=== PATIENT | female | born 1965 | race American Indian/Alaskan Native ===

== ENCOUNTER 2017-11-17 00:45 | Inpatient (IN) | payer OTHER ==
[2017-11-17] MEDS ORDERED: ASPIRIN PO ONE (00:55)
[2017-11-17] MEDS ORDERED: PROVENTIL IH ONE (00:59)
[2017-11-17] MEDS ORDERED: GEODON IM ONE (01:08)
--- NOTE | 2017-11-17 01:10 | Emergency Department Report ---
ED Shortness of Breath HPI - General Chief Complaint: Dyspnea/Respdistress Stated Complaint: SOB/CHEST PAIN Time Seen by Provider: 11/17/17 01:06 Source: patient Mode of arrival: Ambulatory Limitations: No Limitations - History of Present Illness Initial Comments: Patient is a 52-year-old female who presents to emergency room with complaints of chest pain and shortness of breath 1 week patient states that the chest pain and shortness of breath or worsening. He states that she is unable to walk up a flight of steps due to her shortness of breath and JOSÉ. Patient states she's had a nonproductive dry cough. Patient denies fever or chills at this time. MD Complaint: shortness of breath, cough, chest pain, pain with inspiration -: Gradual, week(s) (1 week) Severity: severe Pain Scale: 6 Quality: aching Consistency: constant Improves With: oxygen, rest, bronchodilators, upright position Worsens With: lying flat, exertion Known History Of: COPD Context: recent URI, recent illness Associated Symptoms: chest pain, pain with inspiration, cough Treatments Prior to Arrival: bronchodilator - Related Data Home Oxygen Therapy: No Home Medications Medication Instructions Recorded Confirmed Last Taken ALBUTEROL Inhaler [ProAir HFA 8.5 gm IH BID 11/17/17 11/17/17 Unknown Inhaler] Mometasone/Formoterol [Dulera 100 2 puff IH BID 11/17/17 11/17/17 Unknown Mcg/5 Mcg Inhaler] Tiotropium [place] [Spiriva 4 gm IH BID 11/17/17 11/17/17 Unknown Respimat] Allergies Allergy/AdvReac Type Severity Reaction Status Date / Time Penicillins Allergy Hives Verified 05/01/16 23:11 peanuts Allergy Anaphylaxis Uncoded 05/01/16 23:11 ED Review of Systems ROS: Stated complaint: SOB/CHEST PAIN Other details as noted in HPI Comment: All other systems reviewed and negative Constitutional: denies: chills, fever Eyes: denies: eye pain, eye discharge, vision change ENT: denies: ear pain, throat pain Respiratory: cough, orthopnea, shortness of breath, SOB with exertion, SOB at rest, wheezing Cardiovascular: chest pain. denies: palpitations Endocrine: no symptoms reported Gastrointestinal: denies: abdominal pain, nausea, diarrhea Genitourinary: denies: urgency, dysuria, discharge Musculoskeletal: denies: back pain, joint swelling, arthralgia Skin: denies: rash, lesions Neurological: denies: headache, weakness, paresthesias Psychiatric: denies: anxiety, depression Hematological/Lymphatic: denies: easy bleeding, easy bruising ED Past Medical Hx - Past Medical History Previous Medical History?: Yes Hx COPD: Yes - Surgical History Past Surgical History?: Yes Additional Surgical History: tubal ligation - Family History Family history: hypertension - Social History Smoking Status: Former Smoker Substance Use Type: None - Medications Home Medications: Home Medications Medication Instructions Recorded Confirmed Last Taken Type ALBUTEROL Inhaler [ProAir HFA 8.5 gm IH BID 11/17/17 11/17/17 Unknown History Inhaler] Mometasone/Formoterol [Dulera 100 2 puff IH BID 11/17/17 11/17/17 Unknown History Mcg/5 Mcg Inhaler] Tiotropium [place] [Spiriva 4 gm IH BID 11/17/17 11/17/17 Unknown History Respimat] ED Physical Exam - General Limitations: No Limitations General appearance: alert, in distress - Head Head exam: Present: atraumatic, normocephalic - Eye Eye exam: Present: normal appearance - ENT ENT exam: Present: mucous membranes dry - Neck Neck exam: Present: normal inspection - Respiratory Respiratory exam: Present: respiratory distress, wheezes, accessory muscle use, decreased breath sounds - Cardiovascular Cardiovascular Exam: Present: regular rate, normal rhythm. Absent: systolic murmur, diastolic murmur, rubs, gallop - GI/Abdominal GI/Abdominal exam: Present: soft, normal bowel sounds - Extremities Exam Extremities exam: Present: normal inspection - Back Exam Back exam: Present: normal inspection - Neurological Exam Neurological exam: Present: alert, oriented X3 - Psychiatric Psychiatric exam: Present: normal affect, normal mood - Skin Skin exam: Present: warm, dry, intact, normal color. Absent: rash ED Course Vital Signs 11/17/17 11/17/17 11/17/17 00:48 01:00 01:54 Temperature 97.5 F L 98.2 F Pulse Rate 110 H 103 H 107 H Respiratory 22 15 28 H Rate Blood Pressure 112/77 Blood Pressure 118/81 [Left] O2 Sat by Pulse 78 L 94 100 Oximetry 11/17/17 11/17/17 11/17/17 02:00 02:12 03:00 Temperature Pulse Rate 105 H 98 H Respiratory 28 H 18 Rate Blood Pressure 141/93 122/84 Blood Pressure [Left] O2 Sat by Pulse 93 98 99 Oximetry 11/17/17 04:00 Temperature Pulse Rate Respiratory 21 Rate Blood Pressure 139/86 Blood Pressure [Left] O2 Sat by Pulse 97 Oximetry - Reevaluation(s) Reevaluation #1: 11/17/17 01:42.. Patient's oxygen saturation improving. Patient's retractions have resolved. Patient improving. Lung sounds improving ED Medical Decision Making - Lab Data Result diagrams: 11/17/17 01:37 11/17/17 01:37 - EKG Data -: EKG Interpreted by Me EKG shows normal: sinus rhythm Rate: tachycardia - EKG Data Interpretation: no acute changes - Radiology Data Radiology results: report reviewed - Medical Decision Making Labs reviewed with patient. Will consult hospitalist for admission. - Differential Diagnosis copd. copd exac. cp, sob Critical Care Time: Yes Critical care attestation.: If time is entered above; I have spent that time in minutes in the direct care of this critically ill patient, excluding procedure time. Critical Care Time: 35 minutes spent with patient ED Disposition Clinical Impression: Hypoxia, Chest pain, Shortness of breath, COPD exacerbation, Congestive heart failure Disposition: OP ADMIT IP TO THIS HOSP Is pt being admited?: Yes Does the pt Need Aspirin: No Condition: Critical Time of Disposition: 05:21
[2017-11-17 01:49] LABS: Basophils % (Auto) 0.5 % (0.0-1.8); Eosinophils # (Auto) 0.1 K/mm3 (0.0-0.4); Eosinophils % (Auto) 1.3 % (0.0-4.3); Hematocrit 43.7 % (30.3-42.9); Hemoglobin 14.1 gm/dl (10.1-14.3); Lymphocytes # (Auto) 1.6 K/mm3 (1.2-5.4); Lymphocytes % (Auto) 21.1 % (13.4-35.0); Mean Corpuscular HGB Conc 32 % (30-34); Mean Corpuscular Hemoglobin 31 pg (28-32); Mean Corpuscular Volume 97 fl (79-97); Monocytes # (Auto) 0.9 K/mm3 (0.0-0.8); Monocytes % (Auto) 12.5 % (0.0-7.3); Platelet Count 290 K/mm3 (140-440); Red Blood Count 4.51 M/mm3 (3.65-5.03); Red Cell Distribution Width 15.3 % (13.2-15.2)
[2017-11-17 02:12] LABS: BUN/Creatinine Ratio 26; Blood Urea Nitrogen 18 mg/dL (7-17); Calcium 8.6 mg/dL (8.4-10.2); Hemolysis Index 3
--- NOTE | 2017-11-17 02:53 | XRay Report ---
FINAL REPORT PROCEDURE: XR CHEST ROUTINE 2V TECHNIQUE: PA and lateral chest radiographs were obtained. CPT 11032 HISTORY: sob COMPARISON: No prior studies are available for comparison. FINDINGS: Heart: Normal. Mediastinum/Vessels: Normal. Lungs/Pleural space: There is moderate COPD. There are mild fibrotic changes the lung bases. There are no active infiltrates, effusions or pneumothoraces.. Bony thorax: No acute osseous abnormality. Other: IMPRESSION: The heart size is normal. There is moderate COPD. There are mild fibrotic changes the lung bases. There are no active infiltrates, effusions or pneumothoraces..
[2017-11-17] MEDS ORDERED: MORPHINE IM ONE (03:13)
[2017-11-17] MEDS ORDERED: MORPHINE IV ONE (03:15)
[2017-11-17] MEDS ORDERED: MORPHINE ONE (03:19)
[2017-11-17 03:51] LABS: Bilirubin,Urine NEG (Negative); Blood,Urine NEG (Negative); Color,Urine Yellow (Yellow); Mucus,Urine FEW /HPF; Nitrite,Urine NEG (Negative)
--- NOTE | 2017-11-17 04:52 | Cat Scan Report ---
FINAL REPORT PROCEDURE: CT ANGIO CHEST TECHNIQUE: Computerized tomographic angiography of the chest was performed after the IV injection of iodinated nonionic contrast including image processing. The image data was postprocessed using 2-dimensional multiplanar reformatted (MPR) and 3-dimensional (MIP and/or volume rendered) techniques. HISTORY: cp/sob COMPARISON: No prior studies are available for comparison. FINDINGS: Heart and pericardium: Heart size is borderline enlarged. There is a small pericardial effusion.. Thoracic aorta: There is no thoracic aortic aneurysm or dissection.. Pulmonary vasculature: There is no pulmonary embolism.. Lymph nodes: No enlarged thoracic lymph nodes. Lungs: There is moderate COPD. There are mild fibrotic changes. There are no active infiltrates. Pleural space: No effusion, thickening, or pneumothorax. Musculoskeletal structures: No significant abnormality. Upper abdominal structures: No significant abnormality. IMPRESSION: Heart size is borderline enlarged. There is a small pericardial effusion.. There is no thoracic aortic aneurysm or dissection.. There is no pulmonary embolism.. There is moderate COPD. There are mild fibrotic changes. There are no active infiltrates.
--- NOTE | 2017-11-17 07:32 | Emergency Department Report ---
Blank Doc - Documentation Documentation: I was asked to assess patient at the bedside by RN taking care of the patient during the day shift. Patient apparently is lethargic. Received a total 4 mg of morphine. Patient is on 2 L of oxygen. Patient is drowsy but arousable to tactile stimulation. She states she is feeling better but then falls right back to sleep. Patient denies home oxygen use. Oxygen discontinued to determine baseline. Respiratory therapist contacted to obtain ABG on room air to rule out acute respiratory acidosis/CO2 retention. Patient's ABG on room air show significant hypoxia and a respiratory acidosis. BiPAP was initiated with O2 supplementation. Pt still awaiting admission orders. Hospitalist reinformed and informed of acute changes requiring bipap. Case d/w DR Del Cid
[2017-11-17] MEDS ORDERED: SODIUM CHLORIDE FLUSH SYRINGE 10 ML IV PRN (09:34)
[2017-11-17] MEDS ORDERED: DULCOLAX PR PRN (09:34)
[2017-11-17] MEDS ORDERED: NITROSTAT SL PRN (09:34)
[2017-11-17] MEDS ORDERED: ZOFRAN IV PRN (09:34)
[2017-11-17] MEDS ORDERED: MILK OF MAGNESIA PO PRN (09:34)
[2017-11-17] MEDS ORDERED: NON-FORMULARY (Mometasone/Formoterol [Dulera 100 Mcg/5 Mcg Inhaler] 2 PUFF) IH SCH (10:00)
[2017-11-17] MEDS ORDERED: LOVENOX SUB-Q ONE (10:22)
[2017-11-17] MEDS ORDERED: COLACE ONE (10:22)
[2017-11-17] MEDS: COLACE PO SCH ×2 (11:08→21:50)
[2017-11-17] MEDS: LOVENOX SUB-Q SCH (11:09)
--- NOTE | 2017-11-17 11:28 | Consultation ---
History of Present Illness Consult date: 11/17/17 Consult reason: shortness of breath History of present illness: This is a 52 year old -[place] female presenting with dyspnea and shortness of breath patient has a history of chronic obstructive pulmonary disease she denies any chest pain or high chest x-ray shows no overt signs of pulmonary edema EKG shows a sinus rhythm and serum troponin levels are normal Past History Past Medical History: COPD Past Surgical History: No surgical history Social history: single, smoking Medications and Allergies Allergies Allergy/AdvReac Type Severity Reaction Status Date / Time Penicillins Allergy Hives Verified 05/01/16 23:11 peanuts Allergy Anaphylaxis Uncoded 05/01/16 23:11 Home Medications Medication Instructions Recorded Confirmed Last Taken Type ALBUTEROL Inhaler [ProAir HFA 8.5 gm IH BID 11/17/17 11/17/17 Unknown History Inhaler] Mometasone/Formoterol [Dulera 100 2 puff IH BID 11/17/17 11/17/17 Unknown History Mcg/5 Mcg Inhaler] Tiotropium [place] [Spiriva 4 gm IH BID 11/17/17 11/17/17 Unknown History Respimat] Active Meds: Active Medications Acetaminophen (Tylenol) 650 mg PO Q4H PRN PRN Reason: Pain MILD(1-3)/Fever >100.5/KURTZ Albuterol/Ipratropium (Duoneb *Not For Prn Use*) 1 ampul IH Q6HRT [facility] Arformoterol Tartrate (Brovana Nebu) 15 mcg IH Q12HRT [facility] Aspirin (Ecotrin) 325 mg PO QDAY [facility] Bisacodyl (Dulcolax) 10 mg [place] QDAY PRN PRN Reason: Constipation unrelieved by MOM Budesonide (Pulmicort) 0.5 mg IH Q12HRT [facility] Docusate Sodium (Colace) 100 mg PO BID [facility] Last Admin: 11/17/17 11:08 Dose: 100 mg Enoxaparin Sodium (Lovenox) 40 mg SUB-Q QDAY [facility] Last Admin: 11/17/17 11:09 Dose: 40 mg Methylprednisolone Sodium (Succinate 80 mg/ Dextrose) 250 mls @ 12 mls/hr IV Q24H [facility] Stop: 11/18/17 08:49 Magnesium Hydroxide (Milk Of Magnesia) 30 ml PO Q4H PRN PRN Reason: Constipation Nitroglycerin (Nitrostat) 0.4 mg SL Q5M PRN PRN Reason: Chest Pain Ondansetron HCl (Zofran) 4 mg IV Q8H PRN PRN Reason: N/V unrelieved by Reglan Oxycodone/Acetaminophen (Percocet 5/325) 1 tab PO Q6H PRN PRN Reason: Pain, Moderate (4-6) Sodium Chloride (Sodium Chloride Flush Syringe 10 Ml) 10 ml IV PRN PRN PRN Reason: LINE FLUSH Review of Systems All systems: negative Respiratory: shortness of breath, dyspnea on exertion Physical Examination Vital Signs Temp Pulse Resp BP Pulse Ox 97.5 F L 110 H 22 112/77 78 L 11/17/17 00:48 11/17/17 00:48 11/17/17 00:48 11/17/17 00:48 11/17/17 00:48 General appearance: no acute distress, well-nourished HEENT: Positive: PERRL, Mucus Membranes Moist Neck: Positive: neck supple, trachea midline Cardiac: Positive: Reg Rate and Rhythm, S1/S2. Negative: Audible Murmur Lungs: Positive: clear to auscultation, Normal Breath Sounds Neuro: Positive: Grossly Intact Abdomen: Positive: Soft, Active Bowel Sounds. Negative: Tender, Distended Female genitourinary: deferred Skin: Positive: Clear Incision: Cardiac Cath Site Musculoskeletal: No Pain, Normal Range of Motion Extremities: Present: normal. Absent: edema Results 11/17/17 01:37 11/17/17 01:37 CBC 11/17/17 Range/Units 01:37 WBC 7.5 (4.5-11.0) K/mm3 RBC 4.51 (3.65-5.03) M/mm3 Hgb 14.1 (10.1-14.3) gm/dl Hct 43.7 H (30.3-42.9) % Plt Count 290 (140-440) K/mm3 Lymph # 1.6 (1.2-5.4) K/mm3 [place] # 0.9 H (0.0-0.8) K/mm3 Eos # 0.1 (0.0-0.4) K/mm3 Baso # 0.0 (0.0-0.1) K/mm3 Comprehensive Metabolic Panel 11/17/17 Range/Units 01:37 Sodium 137 (137-145) mmol/L Potassium 4.5 (3.6-5.0) mmol/L Chloride 91.9 L (98-107) mmol/L Carbon Dioxide 36 H (22-30) mmol/L BUN 18 H (7-17) mg/dL Creatinine 0.7 (0.7-1.2) mg/dL Glucose 118 H (65-100) mg/dL Calcium 8.6 (8.4-10.2) mg/dL EKG interpretations - Telemetry EKG Rhythm: Sinus Rhythm Assessment and Plan 1. Acute exacerbation of chronic obstructive pulmonary disease 2. Abnormal EKG Plan. Management as per the pulmonary doctor. Obtain an echocardiogram to assess global and regional function.
--- NOTE | 2017-11-17 11:33 | History and Physical Report ---
History of Present Illness Date of examination: 11/17/17 Date of admission: 11/17/17 09:34 Chief complaint: cp and sob History of present illness: Patient is a 52-year-old female with a history of COPD/asthma presents this admission with shortness of breath and chest pain 1 week period of time. Patient was attempting her MDI inhalers and [id number] medications without relief. Patient's shortness of breath was also associated with a nonproductive cough. Patient denied any fever or chills no nausea vomiting no flank pain no body aches. Chest pain was described as substernal exacerbated by coughing. Patient's hospital course complicated by episode of lethargy and confusion. Patient received 2 mg of morphine for chest pain and after that time had episode of desaturation. ABG revealed patient to be acidotic with a respiratory acidosis. Patient placed on BiPAP with successful correction of oxygenation. At the time of interview patient is easily arousable but remains somewhat lethargic. Patient therefore poor historian. Upon further history patient stated that she became very short of breath with minimal exertion such as going up stairs. Patient also had a BNP of 3039 upon admission. Chest x- ray was significant only for COPD. Past History Past Medical History: COPD Past Surgical History: No surgical history Social history: single, smoking Medications and Allergies Allergies Allergy/AdvReac Type Severity Reaction Status Date / Time Penicillins Allergy Hives Verified 05/01/16 23:11 peanuts Allergy Anaphylaxis Uncoded 05/01/16 23:11 Home Medications Medication Instructions Recorded Confirmed Last Taken Type ALBUTEROL Inhaler [ProAir HFA 8.5 gm IH BID 11/17/17 11/17/17 Unknown History Inhaler] Mometasone/Formoterol [Dulera 100 2 puff IH BID 11/17/17 11/17/17 Unknown History Mcg/5 Mcg Inhaler] Tiotropium [place] [Spiriva 4 gm IH BID 11/17/17 11/17/17 Unknown History Respimat] Active Meds: Active Medications Acetaminophen (Tylenol) 650 mg PO Q4H PRN PRN Reason: Pain MILD(1-3)/Fever >100.5/KURTZ Albuterol/Ipratropium (Duoneb *Not For Prn Use*) 1 ampul IH Q6HRT [facility] Arformoterol Tartrate (Brovana Nebu) 15 mcg IH Q12HRT [facility] Aspirin (Ecotrin) 325 mg PO QDAY [facility] Bisacodyl (Dulcolax) 10 mg [place] QDAY PRN PRN Reason: Constipation unrelieved by MOM Budesonide (Pulmicort) 0.5 mg IH Q12HRT [facility] Docusate Sodium (Colace) 100 mg PO BID [facility] Last Admin: 11/17/17 11:08 Dose: 100 mg Enoxaparin Sodium (Lovenox) 40 mg SUB-Q QDAY [facility] Last Admin: 11/17/17 11:09 Dose: 40 mg Methylprednisolone Sodium (Succinate 80 mg/ Dextrose) 250 mls @ 12 mls/hr IV Q24H [facility] Stop: 11/18/17 08:49 Magnesium Hydroxide (Milk Of Magnesia) 30 ml PO Q4H PRN PRN Reason: Constipation Nitroglycerin (Nitrostat) 0.4 mg SL Q5M PRN PRN Reason: Chest Pain Ondansetron HCl (Zofran) 4 mg IV Q8H PRN PRN Reason: N/V unrelieved by Reglan Oxycodone/Acetaminophen (Percocet 5/325) 1 tab PO Q6H PRN PRN Reason: Pain, Moderate (4-6) Sodium Chloride (Sodium Chloride Flush Syringe 10 Ml) 10 ml IV PRN PRN PRN Reason: LINE FLUSH Review of Systems Constitutional: fatigue, weakness, malaise, no weight loss, no chills, no night sweats, no anorexia, no lethargy, no chronic headaches, no poor appetite, no daytime sleepiness, no chronic pain Ears, nose, mouth and throat: no ear pain, no ear discharge, no tinnitis, no decreased hearing, no nasal congestion, no epistaxis, no bleeding gums, no mouth pain, no dysphagia, no pain front of neck, no neck fullness/pressure Cardiovascular: chest pain, lightheadedness, shortness of breath, dyspnea on exertion, no orthopnea, no palpitations, no rapid/irregular heart beat, no edema , no syncope, no paroxysmal nocturnal dyspnea, no claudication, no phlebitis, no high blood pressure, no leg edema, no decreased exercise tolerance Respiratory: cough, shortness of breath, dyspnea on exertion, wheezing, no cough with sputum, no excessive sputum, no hemoptysis, no congestion, no pleurisy, no pain, no pain on inspiration, no snoring Gastrointestinal: no vomiting, no constipation, no melena, no hematochezia, no loss of appetite, no indigestion, no excessive gas, no dyspepsia/bloating, no early satiety Genitourinary Female: no dyspareunia, no menorrhagia, no urinary frequency Musculoskeletal: no neck stiffness, no neck pain, no shooting leg pain, no muscle cramps, no myalgias, no atrophy, no fractures, no loss of height, no prior amputations, no other Neurological: no head injury, no paralysis, no weakness, no numbness, no convulsions, no change in speech, no confusion, no balance difficulties, no sensory deficit, no double vision, no hearing difficulties, no burning pain, no paralysis Psychiatric: no anxiety, no memory loss, no change in sleep habits, no sleep disturbances, no hypersomnia, no change in appetite, no disorientation, no paranoia, no depression, no hopelessness, no anhedonia, no confusion, no irritability, no sadness/tearfullness Endocrine: no cold intolerance, no heat intolerance, no polyphagia, no excessive thirst, no flushing, no weight change, no increase in ring/shoe/hat size, no proptosis, no low blood sugars, no recent glucocorticoid use, no fatigue Hematologic/Lymphatic: no lymphadenopathy, no lymphedema, no thrombophilia Allergic/Immunologic: no allergic rhinitis, no wheezing, no anaphylaxis, no gluten intolerance Exam - Constitutional Vitals: Temp Pulse Resp BP Pulse Ox 98.4 F 75 24 106/73 98 11/17/17 07:24 11/17/17 08:29 11/17/17 09:00 11/17/17 09:00 11/17/17 08:29 General appearance: Present: no acute distress, well-nourished, other (easily arousable but lethargic at times.) - EENT Eyes: Present: PERRL ENT: hearing intact, clear oral mucosa - Neck Neck: Present: supple, normal ROM - Respiratory Respiratory effort: normal Respiratory: bilateral: CTA - Cardiovascular Heart Sounds: Present: S1 & S2. Absent: rub, click - Extremities Extremities: pulses symmetrical, No edema Peripheral Pulses: within normal limits - Abdominal General gastrointestinal: Present: soft, non-tender, non-distended, normal bowel sounds Female genitourinary: Present: normal - Integumentary Integumentary: Present: clear, warm, dry - Musculoskeletal Musculoskeletal: gait normal, strength equal bilaterally - Psychiatric Psychiatric: appropriate mood/affect, intact judgment & insight - Neurologic Neurologic: CNII-XII intact, moves all extremities Results - Labs CBC & Chem 7: 11/17/17 01:37 11/17/17 01:37 Labs: Laboratory Last Values WBC 7.5 K/mm3 (4.5-11.0) 11/17/17 01:37 RBC 4.51 M/mm3 (3.65-5.03) 11/17/17 01:37 Hgb 14.1 gm/dl (10.1-14.3) 11/17/17 01:37 Hct 43.7 % (30.3-42.9) H 11/17/17 01:37 MCV 97 fl (79-97) 11/17/17 01:37 MCH 31 pg (28-32) 11/17/17 01:37 MCHC 32 % (30-34) 11/17/17 01:37 RDW 15.3 % (13.2-15.2) H 11/17/17 01:37 Plt Count 290 K/mm3 (140-440) 11/17/17 01:37 Lymph % (Auto) 21.1 % (13.4-35.0) 11/17/17 01:37 [place] % (Auto) 12.5 % (0.0-7.3) H 11/17/17 01:37 Eos % (Auto) 1.3 % (0.0-4.3) 11/17/17 01:37 Baso % (Auto) 0.5 % (0.0-1.8) 11/17/17 01:37 Lymph # 1.6 K/mm3 (1.2-5.4) 11/17/17 01:37 [place] # 0.9 K/mm3 (0.0-0.8) H 11/17/17 01:37 Eos # 0.1 K/mm3 (0.0-0.4) 11/17/17 01:37 Baso # 0.0 K/mm3 (0.0-0.1) 11/17/17 01:37 Seg Neutrophils % 64.6 % (40.0-70.0) 11/17/17 01:37 Seg Neutrophils # 4.9 K/mm3 (1.8-7.7) 11/17/17 01:37 D-Dimer 721.35 ng/mlDDU (0-234) H 11/17/17 02:33 POC ABG pH 7.198 (7.35-7.45) L 11/17/17 07:51 POC ABG pCO2 96.0 (35-45) H 11/17/17 07:51 POC ABG pO2 46 (80-105) L 11/17/17 07:51 POC ABG HCO3 37.4 11/17/17 07:51 POC ABG Total CO2 40 11/17/17 07:51 POC ABG O2 Sat 69 11/17/17 07:51 POC ABG Base Excess 9 11/17/17 07:51 FiO2 21 % 11/17/17 07:51 Sodium 137 mmol/L (137-145) 11/17/17 01:37 Potassium 4.5 mmol/L (3.6-5.0) 11/17/17 01:37 Chloride 91.9 mmol/L (98-107) L 11/17/17 01:37 Carbon Dioxide 36 mmol/L (22-30) H 11/17/17 01:37 Anion Gap 14 mmol/L 11/17/17 01:37 BUN 18 mg/dL (7-17) H 11/17/17 01:37 Creatinine 0.7 mg/dL (0.7-1.2) 11/17/17 01:37 Estimated GFR > 60 ml/min 11/17/17 01:37 BUN/Creatinine Ratio 26 % 11/17/17 01:37 Glucose 118 mg/dL (65-100) H 11/17/17 01:37 Calcium 8.6 mg/dL (8.4-10.2) 11/17/17 01:37 Troponin T < 0.010 ng/mL (0.00-0.029) 11/17/17 07:00 NT-Pro-B Natriuret Pep 3039 pg/mL (0-900) H 11/17/17 02:33 Urine Color Yellow (Yellow) 11/17/17 03:34 Urine Turbidity Clear (Clear) 11/17/17 03:34 Urine pH 6.0 (5.0-7.0) 11/17/17 03:34 Ur Specific [place] 1.018 (1.003-1.030) 11/17/17 03:34 Urine Protein 100 mg/dl mg/dL (Negative) 11/17/17 03:34 Urine Glucose (UA) Neg mg/dL (Negative) 11/17/17 03:34 Urine Ketones Neg mg/dL (Negative) 11/17/17 03:34 Urine Blood Neg (Negative) 11/17/17 03:34 Urine Nitrite Neg (Negative) 11/17/17 03:34 Urine Bilirubin Neg (Negative) 11/17/17 03:34 Urine Urobilinogen 4.0 mg/dL (<2.0) 11/17/17 03:34 Ur Leukocyte Esterase Sm (Negative) 11/17/17 03:34 Urine WBC (Auto) 5.0 /HPF (0.0-6.0) 11/17/17 03:34 Urine RBC (Auto) 5.0 /HPF (0.0-6.0) 11/17/17 03:34 U Epithel Cells (Auto) 5.0 /HPF (0-13.0) 11/17/17 03:34 Urine Mucus Few /HPF 11/17/17 03:34 - Imaging and Cardiology EKG: image reviewed Chest x-ray: image reviewed Assessment and Plan Advance Directives: Yes Plan of care discussed with patient/family: Yes - Patient Problems (1) CO2 retention Current Visit: Yes Status: Acute Plan to address problem: Patient was CO2 retention. This is the cause for encephalopathy. We will hold morphine and give by mouth medications for pain if necessary. Triggers seem to be even small doses of morphine. Patient still remains somewhat lethargic. Improved with BiPAP current saturations are well with BiPAP. We'll obtain respiratory eval. (2) COPD exacerbation Current Visit: Yes Status: Acute Plan to address problem: I think this chest pain and symptoms of shortness of breath most likely secondary to COPD exacerbation. Patient has wheezing decreased breath sounds consistent with COPD. Nothing on physical exam resembles congestive heart failure. We'll add Solu-Medrol and albuterol nebulizers. We'll continue BiPAP at present settings. (3) Chest pain Current Visit: Yes Status: Acute Plan to address problem: I think most likely secondary to cough and COPD musculoskeletal in origin. Since patient does have several risk factors and elevated BMP will obtain echo to rule out [place] and stress test to further evaluate chest pain and shortness of breath especially upon stairs with exertion. We'll obtain cardiac isoenzymes echocardiogram and stress test.
[2017-11-17 12:28] LABS: Hematocrit 43.1 % (30.3-42.9); Hemoglobin 14.1 gm/dl (10.1-14.3); Mean Corpuscular HGB Conc 33 % (30-34); Mean Corpuscular Hemoglobin 32 pg (28-32); Mean Corpuscular Volume 97 fl (79-97); Platelet Count 261 K/mm3 (140-440); Red Blood Count 4.46 M/mm3 (3.65-5.03); Red Cell Distribution Width 15.1 % (13.2-15.2)
[2017-11-17 12:46] LABS: BUN/Creatinine Ratio 26; Blood Urea Nitrogen 18 mg/dL (7-17); Calcium 8.9 mg/dL (8.4-10.2); Chol/HDL Ratio 3.12 %; HDL Cholesterol 33 mg/dL (40-59); Hemolysis Index 21; LDL Cholesterol,Direct 62 mg/dL (50-130)
[2017-11-17] MEDS: DUONEB *Not for PRN Use IH SCH ×2 (14:25→21:15)
[2017-11-17] MEDS: PULMICORT IH SCH ×2 (14:26→20:31)
[2017-11-17] MEDS: BROVANA NEBU IH SCH ×2 (14:26→20:31)
[2017-11-17 15:14] LABS: Band Neutrophils # (Manual) 0.1 K/mm3; Basophils % (Manual) 0 % (0.0-1.8); Eosinophils % (Manual) 0 % (0.0-4.3); Total Cells Counted 100
[2017-11-17 15:15] LABS: Platelet Estimate Consistent w Auto
--- NOTE | 2017-11-17 16:06 | Consultation ---
History of Present Illness Consult date: 11/17/17 Requesting physician: DAVE ROJAS Reason for consult: COPD, other (acute hypoxic, hypercapnic respiratory failure) History of present illness: Patient is a 52-year-old female with a history of COPD/asthma presents this admission with shortness of breath and chest pain 1 week period of time. Patient was attempting her MDI inhalers and [id number] medications without relief. Patient's shortness of breath was also associated with a nonproductive cough. Patient denied any fever or chills no nausea vomiting no flank pain no body aches. Chest pain was described as substernal exacerbated by coughing. Patient's hospital course complicated by episode of lethargy and confusion. Patient received 2 mg of morphine for chest pain and after that time had episode of desaturation. ABG revealed patient to be acidotic with a respiratory acidosis. Patient placed on BiPAP with successful correction of oxygenation. At the time of interview patient is easily arousable but remains somewhat lethargic. Patient therefore poor historian. Upon further history patient stated that she became very short of breath with minimal exertion such as going up stairs. Patient also had a BNP of 3039 upon admission. Chest x- ray was significant only for COPD. She was admitted and I have been consulted for critical care management. She currently looks much better, she is awake on BIPAP. Her ABGs show improvement with a pH 7.3/80/126. She has on going shortness of breath and chest tightness Past History Past Medical History: COPD Past Surgical History: No surgical history Social history: single, Lives alone, smoking (on going, ) Family history: no significant family history Medications and Allergies Allergies Allergy/AdvReac Type Severity Reaction Status Date / Time Penicillins Allergy Hives Verified 05/01/16 23:11 peanuts Allergy Anaphylaxis Uncoded 05/01/16 23:11 Home Medications Medication Instructions Recorded Confirmed Last Taken Type ALBUTEROL Inhaler [ProAir HFA 8.5 gm IH BID 11/17/17 11/17/17 Unknown History Inhaler] Mometasone/Formoterol [Dulera 100 2 puff IH BID 11/17/17 11/17/17 Unknown History Mcg/5 Mcg Inhaler] Tiotropium [place] [Spiriva 4 gm IH BID 11/17/17 11/17/17 Unknown History Respimat] Active Meds: Active Medications Acetaminophen (Tylenol) 650 mg PO Q4H PRN PRN Reason: Pain MILD(1-3)/Fever >100.5/KURTZ Albuterol/Ipratropium (Duoneb *Not For Prn Use*) 1 ampul IH Q6HRT [facility] Last Admin: 11/17/17 14:25 Dose: 1 ampul Arformoterol Tartrate (Brovana Nebu) 15 mcg IH Q12HRT [facility] Last Admin: 11/17/17 14:26 Dose: 15 mcg Aspirin (Ecotrin) 325 mg PO QDAY [facility] Bisacodyl (Dulcolax) 10 mg FL QDAY PRN PRN Reason: Constipation unrelieved by MOM Budesonide (Pulmicort) 0.5 mg IH Q12HRT [facility] Last Admin: 11/17/17 14:26 Dose: 0.5 mg Docusate Sodium (Colace) 100 mg PO BID [facility] Last Admin: 11/17/17 11:08 Dose: 100 mg Enoxaparin Sodium (Lovenox) 40 mg SUB-Q QDAY [facility] Last Admin: 11/17/17 11:09 Dose: 40 mg Methylprednisolone Sodium (Succinate 80 mg/ Dextrose) 250 mls @ 12 mls/hr IV Q24H [facility] Stop: 11/18/17 08:49 Last Admin: 11/17/17 12:30 Dose: 12 mls/hr Magnesium Hydroxide (Milk Of Magnesia) 30 ml PO Q4H PRN PRN Reason: Constipation Nitroglycerin (Nitrostat) 0.4 mg SL Q5M PRN PRN Reason: Chest Pain Ondansetron HCl (Zofran) 4 mg IV Q8H PRN PRN Reason: N/V unrelieved by Reglan Oxycodone/Acetaminophen (Percocet 5/325) 1 tab PO Q6H PRN PRN Reason: Pain, Moderate (4-6) Sodium Chloride (Sodium Chloride Flush Syringe 10 Ml) 10 ml IV PRN PRN PRN Reason: LINE FLUSH Review of Systems Constitutional: chills, sweats, fatigue, no weight loss, no weight gain, no fever, no night sweats Cardiovascular: shortness of breath, dyspnea on exertion Respiratory: cough, shortness of breath, dyspnea on exertion, congestion, wheezing, no hemoptysis, no pain on inspiration Gastrointestinal: abdominal pain, nausea, vomiting, diarrhea, change in bowel habits, coffee ground emesis Musculoskeletal: no neck stiffness, no shooting arm pain, no low back pain, no shooting leg pain Integumentary: no rash, no pruritis, no sores, no wounds Neurological: no head injury, no transient paralysis, no paralysis, no weakness , no parathesias, no numbness Endocrine: no cold intolerance, no heat intolerance, no excessive thirst, no polyuria, no excessive sweating Hematologic/Lymphatic: no easy bruising, no easy bleeding Allergic/Immunologic: no urticaria, no allergic rhinitis Physical Examination Vital signs: Vital Signs Temp Pulse Resp BP Pulse Ox 97.5 F L 110 H 22 112/77 78 L 11/17/17 00:48 11/17/17 00:48 11/17/17 00:48 11/17/17 00:48 11/17/17 00:48 General appearance: in mild respiratory distress, BIPAP via full face mask, chronically ill looking HEENT: PERRL, Mucus Membranes Moist Neck: neck supple, trachea midline Cardiac: Positive: Reg Rate and Rhythm, S1/S2. Negative: Audible Murmur Lungs: Poor AE bilaterally, very quiet chest, no wheeze Neuro: Cranial nerves grossly intact, no focal neurology Abdomen: Soft, Active Bowel Sounds. Negative: Tender, Distended Female genitourinary: deferred Skin: No rash, no cyanosi Musculoskeletal: No Pain, Normal Range of Motion Extremities: No edema, DP pulses intact, no cyanosis Results - Laboratory Findings CBC and BMP: 11/17/17 12:10 11/17/17 12:10 ABG POC ABG pH 7.353 (7.35-7.45) 11/17/17 16:01 POC ABG pCO2 70.1 (35-45) H 11/17/17 16:01 POC ABG pO2 125 (80-105) H 11/17/17 16:01 POC ABG HCO3 39.0 11/17/17 16:01 POC ABG Total CO2 41 11/17/17 16:01 POC ABG O2 Sat 98 11/17/17 16:01 PT/INR, D-dimer D-Dimer 721.35 ng/mlDDU (0-234) H 11/17/17 02:33 Abnormal lab findings: Abnormal Labs 11/17/17 11/17/17 11/17/17 01:37 01:37 02:33 Hct 43.7 H RDW 15.3 H [place] % (Auto) 12.5 H [place] # 0.9 H Seg Neuts % (Manual) Lymphocytes % (Manual) Lymphocytes # (Manual) D-Dimer 721.35 H POC ABG pH POC ABG pCO2 POC ABG pO2 Sodium Potassium Chloride 91.9 L Carbon Dioxide 36 H BUN 18 H Glucose 118 H NT-Pro-B Natriuret Pep HDL Cholesterol 11/17/17 11/17/17 11/17/17 02:33 07:51 12:10 Hct 43.1 H RDW [place] % (Auto) [place] # Seg Neuts % (Manual) 92.0 H Lymphocytes % (Manual) 4.0 L Lymphocytes # (Manual) 0.3 L D-Dimer POC ABG pH 7.198 L POC ABG pCO2 96.0 H POC ABG pO2 46 L Sodium Potassium Chloride Carbon Dioxide BUN Glucose NT-Pro-B Natriuret Pep 3039 H HDL Cholesterol 11/17/17 11/17/17 12:10 16:01 Hct RDW [place] % (Auto) [place] # Seg Neuts % (Manual) Lymphocytes % (Manual) Lymphocytes # (Manual) D-Dimer POC ABG pH POC ABG pCO2 70.1 H POC ABG pO2 125 H Sodium 133 L Potassium 5.6 H D Chloride 92.4 L Carbon Dioxide 32 H BUN 18 H Glucose 114 H NT-Pro-B Natriuret Pep HDL Cholesterol 33 L - Diagnostic Findings Chest x-ray: image reviewed (No acute infiltrates, hyperinflated) Assessment and Plan Acute hypercapnic rsepiratory failure Acute encephalopathy COPD AE Tobacco abuse disorder with nicotine dependence Pleuritic chest pain with elevated BNP -Continue with NIPPV, continuous -Serial ABGs -Nicotine withdrawal precautions -Get CTA r/o PE..patient has elevated BNP, pleuritic chest pain and positive D- dimer -Bronchodilators-Steroids with accucheck and glycemic control -VTE prophylaxis, if positive for VTE then start therapeutic anticoagulation -Smoking cessation counselling done at the bedside -2D echocardiogram -
[2017-11-18] MEDS: DUONEB *Not for PRN Use IH SCH ×4 (02:34→22:08)
[2017-11-18 06:34] LABS: Hematocrit 38.4 % (30.3-42.9); Hemoglobin 12.3 gm/dl (10.1-14.3); Lymphocytes # (Auto) 0.4 K/mm3 (1.2-5.4); Lymphocytes % (Auto) 5.6 % (13.4-35.0); Mean Corpuscular HGB Conc 32 % (30-34); Mean Corpuscular Hemoglobin 31 pg (28-32); Mean Corpuscular Volume 98 fl (79-97); Monocytes # (Auto) 0.6 K/mm3 (0.0-0.8); Monocytes % (Auto) 8.6 % (0.0-7.3); Platelet Count 265 K/mm3 (140-440); Red Blood Count 3.94 M/mm3 (3.65-5.03); Red Cell Distribution Width 15.3 % (13.2-15.2)
[2017-11-18 06:53] LABS: BUN/Creatinine Ratio 30; Blood Urea Nitrogen 21 mg/dL (7-17); Calcium 8.7 mg/dL (8.4-10.2); Hemolysis Index 6
[2017-11-18] MEDS: PULMICORT IH SCH ×2 (07:51→22:12)
[2017-11-18] MEDS: BROVANA NEBU IH SCH ×2 (07:52→22:22)
[2017-11-18] MEDS: PERCOCET 5/325 PO PRN ×2 (10:35→15:43)
[2017-11-18] MEDS: COLACE PO SCH ×2 (10:57→22:00)
[2017-11-18] MEDS: LOVENOX SUB-Q SCH (10:57)
[2017-11-18] MEDS: ECOTRIN PO SCH (10:57)
--- NOTE | 2017-11-18 11:52 | Progress Note ---
Assessment and Plan Acute respiratory failure no evidence of PE on CTA COPD/asthma Altered mental status Echocardiogram for LVEF assessment. Subjective Date of service: 11/18/17 Interval history: Currently on bipap. Bilateral wrist restraints in place. Objective Vital Signs Temp Pulse Pulse Resp Resp BP BP 11/18/17 10:31 75 23 11/18/17 10:24 11/18/17 09:37 97.3 F L 97 H 20 110/76 11/18/17 08:09 88 16 11/18/17 07:52 89 20 11/18/17 07:50 11/18/17 05:56 98.4 F 86 18 108/66 11/18/17 04:00 90 11/18/17 01:23 97.6 F 92 H 20 121/68 11/18/17 00:42 95 H 20 11/18/17 00:06 18 11/17/17 20:42 98 H 20 11/17/17 20:31 98.9 F 93 H 18 111/75 11/17/17 20:30 11/17/17 20:27 96 H 20 11/17/17 17:00 90 21 111/75 11/17/17 16:00 83 25 H 113/76 11/17/17 15:00 81 23 114/74 11/17/17 14:45 85 82 23 23 104/68 11/17/17 14:27 79 23 11/17/17 14:00 79 22 111/78 11/17/17 13:00 77 19 109/70 11/17/17 12:01 76 18 Pulse Ox 11/18/17 10:31 95 11/18/17 10:24 99 11/18/17 09:37 100 11/18/17 08:09 11/18/17 07:52 11/18/17 07:50 98 11/18/17 05:56 100 11/18/17 04:00 11/18/17 01:23 94 11/18/17 00:42 97 11/18/17 00:06 11/17/17 20:42 11/17/17 20:31 94 11/17/17 20:30 95 11/17/17 20:27 11/17/17 17:00 93 11/17/17 16:00 94 11/17/17 15:00 99 11/17/17 14:45 100 11/17/17 14:27 11/17/17 14:00 99 11/17/17 13:00 99 11/17/17 12:01 100 - Physical Examination General: No Apparent Distress HEENT: Positive: PERRL Cardiac: Positive: Reg Rate and Rhythm Neuro: Positive: Grossly Intact Abdomen: Negative: Distended - Labs and Meds Lipids 11/17/17 Range/Units 12:10 Triglycerides 40 (2-149) mg/dL Cholesterol 103 (50-199) mg/dL HDL Cholesterol 33 L (40-59) mg/dL Cholesterol/HDL Ratio 3.12 % CBC 11/17/17 11/18/17 Range/Units 12:10 06:18 WBC 6.3 6.8 (4.5-11.0) K/mm3 RBC 4.46 3.94 (3.65-5.03) M/mm3 Hgb 14.1 12.3 (10.1-14.3) gm/dl Hct 43.1 H 38.4 (30.3-42.9) % Plt Count 261 265 (140-440) K/mm3 Lymph # 0.4 L (1.2-5.4) K/mm3 [place] # 0.6 (0.0-0.8) K/mm3 Eos # 0.0 (0.0-0.4) K/mm3 Baso # 0.0 (0.0-0.1) K/mm3 Comprehensive Metabolic Panel 11/17/17 11/18/17 Range/Units 12:10 06:18 Sodium 133 L 137 (137-145) mmol/L Potassium 5.6 H D 5.2 H (3.6-5.0) mmol/L Chloride 92.4 L 93.6 L (98-107) mmol/L Carbon Dioxide 32 H 39 H D (22-30) mmol/L BUN 18 H 21 H (7-17) mg/dL Creatinine 0.7 0.7 (0.7-1.2) mg/dL Glucose 114 H 111 H (65-100) mg/dL Calcium 8.9 8.7 (8.4-10.2) mg/dL - Imaging and Cardiology EKG: image reviewed
[2017-11-18] MEDS ORDERED: PNEUMOVAX 23 IM ONE (12:00)
[2017-11-18] MEDS ORDERED: Fluarix Quad 2017-2018(36 MOS+ IM ONE (12:00)
--- NOTE | 2017-11-18 14:25 | Progress Note ---
Assessment and Plan Acute hypercapnic rsepiratory failure Acute encephalopathy COPD AE Tobacco abuse disorder with nicotine dependence Pleuritic chest pain with elevated BNP - Continue with NIPPV (scheduled qhs now with prn daytime use) - prn ABGs at this point - continue nicotine withdrawal precautions - CTA chest negative for VTE - continue bronchodilators and pulmonary hygiene per RT - Steroids with accucheck and glycemic control -VTE prophylaxis -Smoking cessation counselling done at the bedside -2D echocardiogram reviewed and with low EF (40-45%) with elevated RVSP ...re-evaluate in am & prn - Subjective Date of service: 11/18/17 Principal diagnosis: AECOPD Interval history: Patient is seen today for: Acute on Chronic Hypoxemic Hypercapnic Respiratory Failure; AECOPD Seen and examined at bedside; 24hour events reviewed; nursing and respiratory care staff consulted; no adverse overnight events reported to me; resting peacefully in bed; remains on supplemental oxygen; placed back on BIPAP earlier due to hypercapnia; alert now and denies acute chest pains Objective Vital Signs - 12hr 11/18/17 11/18/17 11/18/17 04:00 05:56 07:50 Temperature 98.4 F Pulse Rate 90 86 Pulse Rate [ Posterior Bilateral] Respiratory 18 Rate Respiratory Rate [Posterior Bilateral] Blood Pressure 108/66 [Left] O2 Sat by Pulse 100 98 Oximetry 11/18/17 11/18/17 11/18/17 07:52 08:09 09:37 Temperature 97.3 F L Pulse Rate 97 H Pulse Rate [ 89 88 Posterior Bilateral] Respiratory 20 Rate Respiratory 20 16 Rate [Posterior Bilateral] Blood Pressure 110/76 [Left] O2 Sat by Pulse 100 Oximetry 11/18/17 11/18/17 11/18/17 10:24 10:31 13:17 Temperature 97.8 F Pulse Rate 75 103 H Pulse Rate [ Posterior Bilateral] Respiratory 23 20 Rate Respiratory Rate [Posterior Bilateral] Blood Pressure 115/69 [Left] O2 Sat by Pulse 99 95 91 Oximetry 11/18/17 11/18/17 11/18/17 13:41 13:52 13:56 Temperature Pulse Rate Pulse Rate [ 88 97 H Posterior Bilateral] Respiratory Rate Respiratory 23 18 Rate [Posterior Bilateral] Blood Pressure [Left] O2 Sat by Pulse 99 Oximetry Constitutional: alert, appears uncomfortable Eyes: non-icteric ENT: oropharynx moist, oropharyngeal exudate pre Neck: supple, no lymphadenopathy, no JVD, other (no thyromegaly) Ascultation: Bilateral: diminished breath sounds, rhonchi Percussion: Bilateral: not dull Cardiovascular: regular rate and rhythm, other (no rubs or murmurs) Gastrointestinal: normoactive bowel sounds, soft, non-tender, non-distended, other (no palpable HSM) Integumentary: normal Extremities: no cyanosis, no edema, pink and warm, pulses normal, no ischemia or petechiae Neurologic: normal mental status, non-focal exam, pupils equal and round, motor strength normal and, other Psychiatric: mood appropriate, affect normal CBC and BMP: 11/18/17 06:18 11/18/17 06:18 ABG, PT/INR, D-dimer: ABG POC ABG pH 7.350 (7.35-7.45) 11/18/17 10:24 POC ABG pCO2 78.2 (35-45) H 11/18/17 10:24 POC ABG pO2 118 (80-105) H 11/18/17 10:24 POC ABG HCO3 43.2 11/18/17 10:24 POC ABG Total CO2 46 11/18/17 10:24 POC ABG O2 Sat 98 11/18/17 10:24 PT/INR, D-dimer D-Dimer 721.35 ng/mlDDU (0-234) H 11/17/17 02:33 Abnormal lab findings: Abnormal Labs 11/17/17 11/17/17 11/17/17 01:37 01:37 02:33 Hct 43.7 H MCV RDW 15.3 H Lymph % (Auto) [place] % (Auto) 12.5 H Lymph # [place] # 0.9 H Seg Neutrophils % Seg Neuts % (Manual) Lymphocytes % (Manual) Lymphocytes # (Manual) D-Dimer 721.35 H POC ABG pH POC ABG pCO2 POC ABG pO2 Sodium Potassium Chloride 91.9 L Carbon Dioxide 36 H BUN 18 H Glucose 118 H NT-Pro-B Natriuret Pep HDL Cholesterol 11/17/17 11/17/17 11/17/17 02:33 07:51 12:10 Hct 43.1 H MCV RDW Lymph % (Auto) [place] % (Auto) Lymph # [place] # Seg Neutrophils % Seg Neuts % (Manual) 92.0 H Lymphocytes % (Manual) 4.0 L Lymphocytes # (Manual) 0.3 L D-Dimer POC ABG pH 7.198 L POC ABG pCO2 96.0 H POC ABG pO2 46 L Sodium Potassium Chloride Carbon Dioxide BUN Glucose NT-Pro-B Natriuret Pep 3039 H HDL Cholesterol 11/17/17 11/17/17 11/18/17 12:10 16:01 06:18 Hct MCV 98 H RDW 15.3 H Lymph % (Auto) 5.6 L [place] % (Auto) 8.6 H Lymph # 0.4 L [place] # Seg Neutrophils % 85.8 H Seg Neuts % (Manual) Lymphocytes % (Manual) Lymphocytes # (Manual) D-Dimer POC ABG pH POC ABG pCO2 70.1 H POC ABG pO2 125 H Sodium 133 L Potassium 5.6 H D Chloride 92.4 L Carbon Dioxide 32 H BUN 18 H Glucose 114 H NT-Pro-B Natriuret Pep HDL Cholesterol 33 L 11/18/17 11/18/17 06:18 10:24 Hct MCV RDW Lymph % (Auto) [place] % (Auto) Lymph # [place] # Seg Neutrophils % Seg Neuts % (Manual) Lymphocytes % (Manual) Lymphocytes # (Manual) D-Dimer POC ABG pH POC ABG pCO2 78.2 H POC ABG pO2 118 H Sodium Potassium 5.2 H Chloride 93.6 L Carbon Dioxide 39 H D BUN 21 H Glucose 111 H NT-Pro-B Natriuret Pep HDL Cholesterol Chest x-ray: image reviewed
[2017-11-19] MEDS: DUONEB *Not for PRN Use IH SCH ×4 (02:29→20:47)
[2017-11-19] MEDS: COLACE PO SCH ×2 (11:00→23:00)
[2017-11-19] MEDS: LOVENOX SUB-Q SCH (11:00)
[2017-11-19] MEDS: ECOTRIN PO SCH (11:00)
[2017-11-19] MEDS: PULMICORT IH SCH ×2 (11:13→20:47)
[2017-11-19] MEDS: BROVANA NEBU IH SCH ×2 (11:13→20:47)
--- NOTE | 2017-11-19 11:46 | Progress Note ---
Assessment and Plan Acute respiratory failure no evidence of PE on CTA COPD/asthma Altered mental status Cor pulmonale Echocardiogram demonstrates evidence of cor pulmonale with dilated right heart chambers, moderate tricuspid regurgitation and moderate pulmonary hypertension. The left ventricle is normal in size, with left ventricular ejection fraction 45-50%. Conservative cardiac management. Subjective Date of service: 11/19/17 Principal diagnosis: AECOPD Interval history: Venturi mask in place. Patient is lethargic but denies chest pain and shortness of breath. Family member at bedside. Objective Vital Signs Temp Pulse Pulse Pulse Resp Resp Resp 11/19/17 10:00 85 87 18 20 11/19/17 09:42 98.2 F 92 H 20 11/19/17 04:00 98 H 11/19/17 03:32 98.7 F 91 H 20 11/19/17 02:35 93 H 18 11/19/17 02:25 91 H 20 11/18/17 23:56 97.7 F 93 H 20 11/18/17 22:21 100 H 17 11/18/17 22:12 101 H 15 11/18/17 22:00 11/18/17 19:23 98.0 F 99 H 20 11/18/17 17:32 98.3 F 96 H 18 11/18/17 16:08 98.0 F 96 H 18 11/18/17 16:00 96 H 11/18/17 13:56 11/18/17 13:52 97 H 18 11/18/17 13:41 88 23 11/18/17 13:17 97.8 F 103 H 20 11/18/17 12:56 97.8 F 101 H 0 L BP BP Pulse Ox 11/19/17 10:00 100 11/19/17 09:42 103/69 98 11/19/17 04:00 11/19/17 03:32 117/70 97 11/19/17 02:35 11/19/17 02:25 11/18/17 23:56 118/70 100 11/18/17 22:21 11/18/17 22:12 11/18/17 22:00 99 11/18/17 19:23 112/71 99 11/18/17 17:32 103/67 100 11/18/17 16:08 103/67 100 11/18/17 16:00 11/18/17 13:56 99 02/12/18 13:52 11/18/17 13:41 11/18/17 13:17 115/69 91 11/18/17 12:56 115/69 88 - Physical Examination General: No Apparent Distress HEENT: Positive: PERRL Cardiac: Positive: Reg Rate and Rhythm Lungs: Positive: Decreased Breath Sounds Neuro: Positive: Grossly Intact Extremities: Absent: edema - Imaging and Cardiology EKG: image reviewed
--- NOTE | 2017-11-19 18:45 | Progress Note ---
Assessment and Plan - Patient Problems (1) COPD exacerbation Current Visit: Yes Status: Acute Plan to address problem: Supplemental oxygen, nebulizer therapy, NIPPV as clinically indicated, pulmonary consulted, pulmonary toilet, 6 minute walk to asses for home oxygen, case management consult to arrange home health, and home oxygen as indicated. (2) Acute respiratory failure Current Visit: Yes Status: Acute Qualifiers: Respiratory failure complication: hypercapnia Qualified Code(s): J96.02 - Acute respiratory failure with hypercapnia Plan to address problem: Supplemental oxygen, nebulizer therapy, NIPPV, pulmonary toilet, supportive care. (3) Encephalopathy Current Visit: Yes Status: Acute Plan to address problem: Metabolic: supportive care, supplemental oxygen, neuro checks. 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 (5) DVT prophylaxis Current Visit: Yes Status: Acute History Interval history: Pt seen and evaluated, Pt confused overnight, with episodes of respiratory distress, and agitation. Pt daughter and son at bedside during exam and interview. No reports of fever, chills, CP, palpitations. Discussed care plan with daughter and son. Patient and family acknowledge understanding plan, and agree with plan of care. Hospitalist Physical - Constitutional Vitals: Temp Pulse Resp BP Pulse Ox 98.0 F 91 H 18 99/53 98 11/19/17 17:03 11/19/17 17:03 11/19/17 17:03 11/19/17 17:03 11/19/17 17:03 General appearance: Present: mild distress, cachectic, other (easily arousable but lethargic at times.) - EENT Eyes: Present: PERRL ENT: hearing intact - Neck Neck: Present: supple - Respiratory Respiratory: bilateral: diminished, rhonchi - Cardiovascular Rhythm: regular Heart Sounds: Present: S1 & S2 - Extremities Extremities: no ischemia Peripheral Pulses: within normal limits - Abdominal General gastrointestinal: soft, non-tender, non-distended - Integumentary Integumentary: Present: clear, dry - Psychiatric Psychiatric: no intact judgment & insight - Neurologic Neurologic: no gait normal Results - Labs CBC & Chem 7: 02/12/18 06:18 11/18/17 06:18 Labs: Laboratory Last Values WBC 6.8 K/mm3 (4.5-11.0) 11/18/17 06:18 RBC 3.94 M/mm3 (3.65-5.03) 11/18/17 06:18 Hgb 12.3 gm/dl (10.1-14.3) 11/18/17 06:18 Hct 38.4 % (30.3-42.9) 11/18/17 06:18 MCV 98 fl (79-97) H 11/18/17 06:18 MCH 31 pg (28-32) 11/18/17 06:18 MCHC 32 % (30-34) 11/18/17 06:18 RDW 15.3 % (13.2-15.2) H 11/18/17 06:18 Plt Count 265 K/mm3 (140-440) 11/18/17 06:18 Lymph % (Auto) 5.6 % (13.4-35.0) L 11/18/17 06:18 [place] % (Auto) 8.6 % (0.0-7.3) H 11/18/17 06:18 Eos % (Auto) 0.0 % (0.0-4.3) 11/18/17 06:18 Baso % (Auto) 0.0 % (0.0-1.8) 11/18/17 06:18 Lymph # 0.4 K/mm3 (1.2-5.4) L 11/18/17 06:18 [place] # 0.6 K/mm3 (0.0-0.8) 11/18/17 06:18 Eos # 0.0 K/mm3 (0.0-0.4) 11/18/17 06:18 Baso # 0.0 K/mm3 (0.0-0.1) 11/18/17 06:18 Add Manual Diff Complete 11/17/17 12:10 Total Counted 100 11/17/17 12:10 Seg Neutrophils % 85.8 % (40.0-70.0) H 11/18/17 06:18 Seg Neuts % (Manual) 92.0 % (40.0-70.0) H 11/17/17 12:10 Band Neutrophils % 1.0 % 11/17/17 12:10 Lymphocytes % (Manual) 4.0 % (13.4-35.0) L 11/17/17 12:10 Reactive Lymphs % (Man) 0 % 11/17/17 12:10 Monocytes % (Manual) 3.0 % (0.0-7.3) 11/17/17 12:10 Eosinophils % (Manual) 0 % (0.0-4.3) 11/17/17 12:10 Basophils % (Manual) 0 % (0.0-1.8) 11/17/17 12:10 Metamyelocytes % 0 % 11/17/17 12:10 Myelocytes % 0 % 11/17/17 12:10 Promyelocytes % 0 % 11/17/17 12:10 Blast Cells % 0 % 11/17/17 12:10 Nucleated RBC % Not Reportable 11/17/17 12:10 Seg Neutrophils # 5.9 K/mm3 (1.8-7.7) 11/18/17 06:18 Seg Neutrophils # Man 5.8 K/mm3 (1.8-7.7) 11/17/17 12:10 Band Neutrophils # 0.1 K/mm3 11/17/17 12:10 Lymphocytes # (Manual) 0.3 K/mm3 (1.2-5.4) L 11/17/17 12:10 Abs React Lymphs (Man) 0.0 K/mm3 11/17/17 12:10 Monocytes # (Manual) 0.2 K/mm3 (0.0-0.8) 11/17/17 12:10 Eosinophils # (Manual) 0.0 K/mm3 (0.0-0.4) 11/17/17 12:10 Basophils # (Manual) 0.0 K/mm3 (0.0-0.1) 11/17/17 12:10 Metamyelocytes # 0.0 K/mm3 11/17/17 12:10 Myelocytes # 0.0 K/mm3 11/17/17 12:10 Promyelocytes # 0.0 K/mm3 11/17/17 12:10 Blast Cells # 0.0 K/mm3 11/17/17 12:10 WBC Morphology Not Reportable 11/17/17 12:10 Hypersegmented Neuts Not Reportable 11/17/17 12:10 Hyposegmented Neuts Not Reportable 11/17/17 12:10 Hypogranular Neuts Not Reportable 11/17/17 12:10 Smudge Cells Not Reportable 11/17/17 12:10 Toxic Granulation Not Reportable 11/17/17 12:10 Toxic Vacuolation Not Reportable 11/17/17 12:10 Dohle Bodies Not Reportable 11/17/17 12:10 Pelger-Huet Anomaly Not Reportable 11/17/17 12:10 Jackie Rods Not Reportable 11/17/17 12:10 Platelet Estimate Consistent w auto 11/17/17 12:10 Clumped Platelets Not Reportable 11/17/17 12:10 Plt Clumps, EDTA Not Reportable 11/17/17 12:10 Large Platelets Not Reportable 11/17/17 12:10 Giant Platelets Not Reportable 11/17/17 12:10 Platelet Satelliting Not Reportable 11/17/17 12:10 Plt Morphology Comment Not Reportable 11/17/17 12:10 RBC Morphology Not Reportable 11/17/17 12:10 Dimorphic RBCs Not Reportable 11/17/17 12:10 Polychromasia Few 11/17/17 12:10 Hypochromasia Not Reportable 11/17/17 12:10 Poikilocytosis Not Reportable 11/17/17 12:10 Anisocytosis Not Reportable 11/17/17 12:10 Microcytosis Not Reportable 11/17/17 12:10 Macrocytosis Not Reportable 11/17/17 12:10 Spherocytes Not Reportable 11/17/17 12:10 Pappenheimer Bodies Not Reportable 11/17/17 12:10 Sickle Cells Not Reportable 11/17/17 12:10 Target Cells Not Reportable 11/17/17 12:10 Tear Drop Cells Not Reportable 11/17/17 12:10 Ovalocytes Not Reportable 11/17/17 12:10 Helmet Cells Not Reportable 11/17/17 12:10 [place] Bodies Not Reportable 11/17/17 12:10 [place] Rings Not Reportable 11/17/17 12:10 [place] Cells Not Reportable 11/17/17 12:10 Bite Cells Not Reportable 11/17/17 12:10 Crenated Cell Not Reportable 11/17/17 12:10 Elliptocytes Not Reportable 11/17/17 12:10 Acanthocytes (Spur) Not Reportable 11/17/17 12:10 Rouleaux Not Reportable 11/17/17 12:10 Hemoglobin C Crystals Not Reportable 11/17/17 12:10 Schistocytes Not Reportable 11/17/17 12:10 Malaria parasites Not Reportable 11/17/17 12:10 Jose Bodies Not Reportable 11/17/17 12:10 Hem Pathologist Commnt No 11/17/17 12:10 D-Dimer 721.35 ng/mlDDU (0-234) H 11/17/17 02:33 POC ABG pH 7.350 (7.35-7.45) 11/18/17 10:24 POC ABG pCO2 78.2 (35-45) H 11/18/17 10:24 POC ABG pO2 118 (80-105) H 11/18/17 10:24 POC ABG HCO3 43.2 11/18/17 10:24 POC ABG Total CO2 46 11/18/17 10:24 POC ABG O2 Sat 98 11/18/17 10:24 POC ABG Base Excess 18 11/18/17 10:24 FiO2 50 % 11/18/17 10:24 Sodium 137 mmol/L (137-145) 11/18/17 06:18 Potassium 5.2 mmol/L (3.6-5.0) H 11/18/17 06:18 Chloride 93.6 mmol/L (98-107) L 11/18/17 06:18 Carbon Dioxide 39 mmol/L (22-30) H D 11/18/17 06:18 Anion Gap 10 mmol/L 11/18/17 06:18 BUN 21 mg/dL (7-17) H 11/18/17 06:18 Creatinine 0.7 mg/dL (0.7-1.2) 11/18/17 06:18 Estimated GFR > 60 ml/min 11/18/17 06:18 BUN/Creatinine Ratio 30 % 11/18/17 06:18 Glucose 111 mg/dL (65-100) H 11/18/17 06:18 Calcium 8.7 mg/dL (8.4-10.2) 11/18/17 06:18 Troponin T < 0.010 ng/mL (0.00-0.029) 11/17/17 15:42 NT-Pro-B Natriuret Pep 3039 pg/mL (0-900) H 11/17/17 02:33 Triglycerides 40 mg/dL (2-149) 11/17/17 12:10 Cholesterol 103 mg/dL (50-199) 11/17/17 12:10 LDL Cholesterol Direct 62 mg/dL (50-130) 11/17/17 12:10 HDL Cholesterol 33 mg/dL (40-59) L 11/17/17 12:10 Cholesterol/HDL Ratio 3.12 % 11/17/17 12:10 Urine Color Yellow (Yellow) 11/17/17 03:34 Urine Turbidity Clear (Clear) 11/17/17 03:34 Urine pH 6.0 (5.0-7.0) 11/17/17 03:34 Ur Specific [place] 1.018 (1.003-1.030) 11/17/17 03:34 Urine Protein 100 mg/dl mg/dL (Negative) 11/17/17 03:34 Urine Glucose (UA) Neg mg/dL (Negative) 11/17/17 03:34 Urine Ketones Neg mg/dL (Negative) 11/17/17 03:34 Urine Blood Neg (Negative) 11/17/17 03:34 Urine Nitrite Neg (Negative) 11/17/17 03:34 Urine Bilirubin Neg (Negative) 11/17/17 03:34 Urine Urobilinogen 4.0 mg/dL (<2.0) 11/17/17 03:34 Ur Leukocyte Esterase Sm (Negative) 11/17/17 03:34 Urine WBC (Auto) 5.0 /HPF (0.0-6.0) 11/17/17 03:34 Urine RBC (Auto) 5.0 /HPF (0.0-6.0) 11/17/17 03:34 U Epithel Cells (Auto) 5.0 /HPF (0-13.0) 11/17/17 03:34 Urine Mucus Few /HPF 11/17/17 03:34
[2017-11-20] MEDS: DUONEB *Not for PRN Use IH SCH ×4 (01:59→20:23)
[2017-11-20] MEDS: BROVANA NEBU IH SCH ×2 (07:54→20:23)
[2017-11-20] MEDS: PULMICORT IH SCH ×2 (07:54→20:23)
--- NOTE | 2017-11-20 10:14 | Progress Note ---
Assessment and Plan Acute respiratory failure no evidence of PE on CTA COPD/asthma Altered mental status Cor pulmonale Echocardiogram demonstrates evidence of cor pulmonale with dilated right heart chambers, moderate tricuspid regurgitation and moderate pulmonary hypertension. The left ventricle is normal in size, with left ventricular ejection fraction 45-50%. Conservative cardiac management. Subjective Date of service: 11/20/17 Principal diagnosis: AECOPD Interval history: Patient is resting in bed comfortably. Family members at bedside. Objective Vital Signs Temp Pulse Pulse Pulse Resp Resp Resp 11/20/17 09:47 94 H 11/20/17 08:57 98.5 F 16 11/20/17 05:28 98.2 F 84 18 11/20/17 04:00 92 H 11/20/17 01:00 97.9 F 79 20 11/20/17 00:30 78 11/19/17 21:04 92 H 18 11/19/17 20:50 11/19/17 20:48 89 18 11/19/17 20:42 98.4 F 89 18 11/19/17 20:07 89 11/19/17 17:03 98.0 F 91 H 18 11/19/17 16:35 98.0 F 20 11/19/17 16:05 98.8 F 65 14 11/19/17 16:00 88 11/19/17 15:42 91 H 90 18 18 11/19/17 12:34 98.1 F 93 H 18 11/19/17 12:05 98.1 F 20 BP BP Pulse Ox 11/20/17 09:47 11/20/17 08:57 123/75 11/20/17 05:28 121/68 11/20/17 04:00 11/20/17 01:00 118/75 98 11/20/17 00:30 118/75 98 11/19/17 21:04 11/19/17 20:50 98 11/19/17 20:48 11/19/17 20:42 106/57 98 11/19/17 20:07 106/57 99 11/19/17 17:03 99/53 98 11/19/17 16:35 99/53 11/19/17 16:05 117/65 100 11/19/17 16:00 11/19/17 15:42 11/19/17 12:34 98/53 94 11/19/17 12:05 98/53 - Physical Examination General: No Apparent Distress Cardiac: Positive: Reg Rate and Rhythm - Imaging and Cardiology EKG: image reviewed
[2017-11-20] MEDS: COLACE PO SCH ×2 (11:24→22:45)
[2017-11-20] MEDS: ECOTRIN PO SCH (11:25)
[2017-11-20] MEDS: LOVENOX SUB-Q SCH (11:25)
--- NOTE | 2017-11-20 13:08 | Progress Note ---
Assessment and Plan Acute hypercapnic rsepiratory failure Acute encephalopathy COPD AE Tobacco abuse disorder with nicotine dependence Pleuritic chest pain with elevated BNP Cor pulmonale Echocardiogram demonstrates evidence of cor pulmonale with dilated right heart chambers, moderate tricuspid regurgitation and moderate pulmonary hypertension. The left ventricle is normal in size, with left ventricular ejection fraction 45-50%. -Continue with NIPPV, continuous -Serial ABGs -Nicotine withdrawal precautions - no evidence of PE on CTA -Bronchodilators-Steroids with accucheck and glycemic control -VTE prophylaxis -Smoking cessation counselling done at the bedside - Subjective Date of service: 11/20/17 Principal diagnosis: AECOPD Interval history: Patient is seen today for: Acute on Chronic Hypoxemic Hypercapnic Respiratory Failure; AECOPD Seen and examined at bedside; 24hour events reviewed; nursing and respiratory care staff consulted; no adverse overnight events reported to me; resting peacefully in bed; remains on supplemental oxygen; placed back on BIPAP earlier due to hypercapnia; alert now and denies acute chest pains Objective Vital Signs - 12hr 11/20/17 11/20/17 11/20/17 04:00 05:28 07:56 Temperature 98.2 F Pulse Rate 92 H 84 Pulse Rate [ 84 Posterior Bilateral] Respiratory 18 Rate Respiratory 18 Rate [Posterior Bilateral] Blood Pressure Blood Pressure 121/68 [Left] O2 Sat by Pulse Oximetry 11/20/17 11/20/17 11/20/17 08:15 08:57 09:47 Temperature 98.5 F Pulse Rate 94 H Pulse Rate [ 82 Posterior Bilateral] Respiratory 16 Rate Respiratory 18 Rate [Posterior Bilateral] Blood Pressure 123/75 Blood Pressure [Left] O2 Sat by Pulse Oximetry 11/20/17 10:00 Temperature Pulse Rate Pulse Rate [ Posterior Bilateral] Respiratory Rate Respiratory Rate [Posterior Bilateral] Blood Pressure Blood Pressure [Left] O2 Sat by Pulse 97 Oximetry Constitutional: alert, appears uncomfortable Eyes: non-icteric ENT: oropharynx moist, oropharyngeal exudate pre Neck: supple, no lymphadenopathy, no JVD, other (no thyromegaly) Ascultation: Bilateral: diminished breath sounds, rhonchi Percussion: Bilateral: not dull Cardiovascular: regular rate and rhythm, other (no rubs or murmurs) Gastrointestinal: normoactive bowel sounds, soft, non-tender, non-distended, other (no palpable HSM) Integumentary: normal Extremities: no cyanosis, no edema, pink and warm, pulses normal, no ischemia or petechiae Neurologic: normal mental status, non-focal exam, pupils equal and round, motor strength normal and, other Psychiatric: mood appropriate, affect normal CBC and BMP: 11/18/17 06:18 11/18/17 06:18 ABG, PT/INR, D-dimer: ABG POC ABG pH 7.350 (7.35-7.45) 11/18/17 10:24 POC ABG pCO2 78.2 (35-45) H 11/18/17 10:24 POC ABG pO2 118 (80-105) H 11/18/17 10:24 POC ABG HCO3 43.2 11/18/17 10:24 POC ABG Total CO2 46 11/18/17 10:24 POC ABG O2 Sat 98 11/18/17 10:24 PT/INR, D-dimer D-Dimer 721.35 ng/mlDDU (0-234) H 11/17/17 02:33 Abnormal lab findings: Abnormal Labs 11/17/17 11/17/17 11/17/17 01:37 01:37 02:33 Hct 43.7 H MCV RDW 15.3 H Lymph % (Auto) [place] % (Auto) 12.5 H Lymph # [place] # 0.9 H Seg Neutrophils % Seg Neuts % (Manual) Lymphocytes % (Manual) Lymphocytes # (Manual) D-Dimer 721.35 H POC ABG pH POC ABG pCO2 POC ABG pO2 Sodium Potassium Chloride 91.9 L Carbon Dioxide 36 H BUN 18 H Glucose 118 H POC Glucose NT-Pro-B Natriuret Pep HDL Cholesterol 11/17/17 11/17/17 11/17/17 02:33 07:51 12:10 Hct 43.1 H MCV RDW Lymph % (Auto) [place] % (Auto) Lymph # [place] # Seg Neutrophils % Seg Neuts % (Manual) 92.0 H Lymphocytes % (Manual) 4.0 L Lymphocytes # (Manual) 0.3 L D-Dimer POC ABG pH 7.198 L POC ABG pCO2 96.0 H POC ABG pO2 46 L Sodium Potassium Chloride Carbon Dioxide BUN Glucose POC Glucose NT-Pro-B Natriuret Pep 3039 H HDL Cholesterol 11/17/17 11/17/17 11/18/17 12:10 16:01 06:18 Hct MCV 98 H RDW 15.3 H Lymph % (Auto) 5.6 L [place] % (Auto) 8.6 H Lymph # 0.4 L [place] # Seg Neutrophils % 85.8 H Seg Neuts % (Manual) Lymphocytes % (Manual) Lymphocytes # (Manual) D-Dimer POC ABG pH POC ABG pCO2 70.1 H POC ABG pO2 125 H Sodium 133 L Potassium 5.6 H D Chloride 92.4 L Carbon Dioxide 32 H BUN 18 H Glucose 114 H POC Glucose NT-Pro-B Natriuret Pep HDL Cholesterol 33 L 11/18/17 11/18/17 11/20/17 06:18 10:24 12:04 Hct MCV RDW Lymph % (Auto) [place] % (Auto) Lymph # [place] # Seg Neutrophils % Seg Neuts % (Manual) Lymphocytes % (Manual) Lymphocytes # (Manual) D-Dimer POC ABG pH POC ABG pCO2 78.2 H POC ABG pO2 118 H Sodium Potassium 5.2 H Chloride 93.6 L Carbon Dioxide 39 H D BUN 21 H Glucose 111 H POC Glucose 132 H NT-Pro-B Natriuret Pep HDL Cholesterol
[2017-11-20 14:15] LABS: BUN/Creatinine Ratio 25; Blood Urea Nitrogen 15 mg/dL (7-17); Calcium 8.7 mg/dL (8.4-10.2); Hemolysis Index 0
--- NOTE | 2017-11-20 17:26 | Progress Note ---
Assessment and Plan Assessment and plan: --Acute hypercapnic respiratory failure; Continue NIPPV, nebulizers, IV steroids, pulmonary following Evaluation for home oxygen at discharge --Acute exacerbation of COPD; Continue nebulizers, oxygen and steroids --Cor pulmonale; but echocardiogram Moderate pulmonary hypertension, supportive care --Moderate pulmonary hypertension; continue current management Pulmonary following --Mild systolic congestive heart failure, ejection fraction 40-45% Well compensated, continue supportive care --Metabolic encephalopathy; multifactorial Continue supportive care, check CT head without contrast needed --Ongoing tobacco use; smoking cessation counseling done, advised nicotine patch as needed --DVT prophylaxis; Lovenox Closely monitor the patient and adjust management as needed Patient's condition and treatment plan reviewed with the patient as well as her him remember History Interval history: Patient seen and evaluated medical records reviewed Patient feels slightly better, sometimes seems confused No new events reported by the nursing staff Denies chest pain or shortness of breath Looks tired Receiving BiPAP for her hypercapnia Vital signs reviewed Hospitalist Physical - Constitutional Vitals: Temp Pulse Resp BP Pulse Ox 99.4 F 112 H 20 107/67 97 11/20/17 11:55 11/20/17 13:42 11/20/17 13:32 11/20/17 11:55 11/20/17 10:00 General appearance: Present: no acute distress, well-nourished - EENT Eyes: Present: PERRL, EOM intact - Neck Neck: Present: supple, normal ROM - Respiratory Respiratory effort: normal - Cardiovascular Rhythm: regular Heart Sounds: Present: S1 & S2 - Extremities Extremities: no ischemia, No edema - Abdominal General gastrointestinal: soft, non-tender, non-distended, normal bowel sounds - Integumentary Integumentary: Present: clear, warm - Psychiatric Psychiatric: appropriate mood/affect, other (minimally communicative) - Neurologic Neurologic: CNII-XII intact, moves all extremities Results - Labs CBC & Chem 7: 11/18/17 06:18 11/20/17 13:23 Labs: Laboratory Last Values WBC 6.8 K/mm3 (4.5-11.0) 11/18/17 06:18 RBC 3.94 M/mm3 (3.65-5.03) 11/18/17 06:18 Hgb 12.3 gm/dl (10.1-14.3) 11/18/17 06:18 Hct 38.4 % (30.3-42.9) 11/18/17 06:18 MCV 98 fl (79-97) H 11/18/17 06:18 MCH 31 pg (28-32) 11/18/17 06:18 MCHC 32 % (30-34) 11/18/17 06:18 RDW 15.3 % (13.2-15.2) H 11/18/17 06:18 Plt Count 265 K/mm3 (140-440) 11/18/17 06:18 Lymph % (Auto) 5.6 % (13.4-35.0) L 11/18/17 06:18 [place] % (Auto) 8.6 % (0.0-7.3) H 11/18/17 06:18 Eos % (Auto) 0.0 % (0.0-4.3) 11/18/17 06:18 Baso % (Auto) 0.0 % (0.0-1.8) 11/18/17 06:18 Lymph # 0.4 K/mm3 (1.2-5.4) L 11/18/17 06:18 [place] # 0.6 K/mm3 (0.0-0.8) 11/18/17 06:18 Eos # 0.0 K/mm3 (0.0-0.4) 11/18/17 06:18 Baso # 0.0 K/mm3 (0.0-0.1) 11/18/17 06:18 Add Manual Diff Complete 11/17/17 12:10 Total Counted 100 11/17/17 12:10 Seg Neutrophils % 85.8 % (40.0-70.0) H 11/18/17 06:18 Seg Neuts % (Manual) 92.0 % (40.0-70.0) H 11/17/17 12:10 Band Neutrophils % 1.0 % 11/17/17 12:10 Lymphocytes % (Manual) 4.0 % (13.4-35.0) L 11/17/17 12:10 Reactive Lymphs % (Man) 0 % 11/17/17 12:10 Monocytes % (Manual) 3.0 % (0.0-7.3) 11/17/17 12:10 Eosinophils % (Manual) 0 % (0.0-4.3) 11/17/17 12:10 Basophils % (Manual) 0 % (0.0-1.8) 11/17/17 12:10 Metamyelocytes % 0 % 11/17/17 12:10 Myelocytes % 0 % 11/17/17 12:10 Promyelocytes % 0 % 11/17/17 12:10 Blast Cells % 0 % 11/17/17 12:10 Nucleated RBC % Not Reportable 11/17/17 12:10 Seg Neutrophils # 5.9 K/mm3 (1.8-7.7) 11/18/17 06:18 Seg Neutrophils # Man 5.8 K/mm3 (1.8-7.7) 11/17/17 12:10 Band Neutrophils # 0.1 K/mm3 11/17/17 12:10 Lymphocytes # (Manual) 0.3 K/mm3 (1.2-5.4) L 11/17/17 12:10 Abs React Lymphs (Man) 0.0 K/mm3 11/17/17 12:10 Monocytes # (Manual) 0.2 K/mm3 (0.0-0.8) 11/17/17 12:10 Eosinophils # (Manual) 0.0 K/mm3 (0.0-0.4) 11/17/17 12:10 Basophils # (Manual) 0.0 K/mm3 (0.0-0.1) 11/17/17 12:10 Metamyelocytes # 0.0 K/mm3 11/17/17 12:10 Myelocytes # 0.0 K/mm3 11/17/17 12:10 Promyelocytes # 0.0 K/mm3 11/17/17 12:10 Blast Cells # 0.0 K/mm3 11/17/17 12:10 WBC Morphology Not Reportable 11/17/17 12:10 Hypersegmented Neuts Not Reportable 11/17/17 12:10 Hyposegmented Neuts Not Reportable 11/17/17 12:10 Hypogranular Neuts Not Reportable 11/17/17 12:10 Smudge Cells Not Reportable 11/17/17 12:10 Toxic Granulation Not Reportable 11/17/17 12:10 Toxic Vacuolation Not Reportable 11/17/17 12:10 Dohle Bodies Not Reportable 11/17/17 12:10 Pelger-Huet Anomaly Not Reportable 11/17/17 12:10 Jackie Rods Not Reportable 11/17/17 12:10 Platelet Estimate Consistent w auto 11/17/17 12:10 Clumped Platelets Not Reportable 11/17/17 12:10 Plt Clumps, EDTA Not Reportable 11/17/17 12:10 Large Platelets Not Reportable 11/17/17 12:10 Giant Platelets Not Reportable 11/17/17 12:10 Platelet Satelliting Not Reportable 11/17/17 12:10 Plt Morphology Comment Not Reportable 11/17/17 12:10 RBC Morphology Not Reportable 11/17/17 12:10 Dimorphic RBCs Not Reportable 11/17/17 12:10 Polychromasia Few 11/17/17 12:10 Hypochromasia Not Reportable 11/17/17 12:10 Poikilocytosis Not Reportable 11/17/17 12:10 Anisocytosis Not Reportable 11/17/17 12:10 Microcytosis Not Reportable 11/17/17 12:10 Macrocytosis Not Reportable 11/17/17 12:10 Spherocytes Not Reportable 11/17/17 12:10 Pappenheimer Bodies Not Reportable 11/17/17 12:10 Sickle Cells Not Reportable 11/17/17 12:10 Target Cells Not Reportable 11/17/17 12:10 Tear Drop Cells Not Reportable 11/17/17 12:10 Ovalocytes Not Reportable 11/17/17 12:10 Helmet Cells Not Reportable 11/17/17 12:10 [place] Bodies Not Reportable 11/17/17 12:10 [place] Rings Not Reportable 11/17/17 12:10 [place] Cells Not Reportable 11/17/17 12:10 Bite Cells Not Reportable 11/17/17 12:10 Crenated Cell Not Reportable 11/17/17 12:10 Elliptocytes Not Reportable 11/17/17 12:10 Acanthocytes (Spur) Not Reportable 11/17/17 12:10 Rouleaux Not Reportable 11/17/17 12:10 Hemoglobin C Crystals Not Reportable 11/17/17 12:10 Schistocytes Not Reportable 11/17/17 12:10 Malaria parasites Not Reportable 11/17/17 12:10 Jose Bodies Not Reportable 11/17/17 12:10 Hem Pathologist Commnt No 11/17/17 12:10 D-Dimer 721.35 ng/mlDDU (0-234) H 11/17/17 02:33 POC ABG pH 7.350 (7.35-7.45) 11/18/17 10:24 POC ABG pCO2 78.2 (35-45) H 11/18/17 10:24 POC ABG pO2 118 (80-105) H 11/18/17 10:24 POC ABG HCO3 43.2 11/18/17 10:24 POC ABG Total CO2 46 11/18/17 10:24 POC ABG O2 Sat 98 11/18/17 10:24 POC ABG Base Excess 18 11/18/17 10:24 FiO2 50 % 11/18/17 10:24 Sodium 140 mmol/L (137-145) 11/20/17 13:23 Potassium 4.7 mmol/L (3.6-5.0) 11/20/17 13:23 Chloride 95.1 mmol/L (98-107) L 11/20/17 13:23 Carbon Dioxide 41 mmol/L (22-30) H* 11/20/17 13:23 Anion Gap 9 mmol/L 11/20/17 13:23 BUN 15 mg/dL (7-17) 11/20/17 13:23 Creatinine 0.6 mg/dL (0.7-1.2) L 11/20/17 13:23 Estimated GFR > 60 ml/min 11/20/17 13:23 BUN/Creatinine Ratio 25 % 11/20/17 13:23 Glucose 96 mg/dL (65-100) 11/20/17 13:23 POC Glucose 132 (70-105) H 11/20/17 12:04 Calcium 8.7 mg/dL (8.4-10.2) 11/20/17 13:23 Troponin T < 0.010 ng/mL (0.00-0.029) 11/17/17 15:42 NT-Pro-B Natriuret Pep 3039 pg/mL (0-900) H 11/17/17 02:33 Triglycerides 40 mg/dL (2-149) 11/17/17 12:10 Cholesterol 103 mg/dL (50-199) 11/17/17 12:10 LDL Cholesterol Direct 62 mg/dL (50-130) 11/17/17 12:10 HDL Cholesterol 33 mg/dL (40-59) L 11/17/17 12:10 Cholesterol/HDL Ratio 3.12 % 11/17/17 12:10 Urine Color Yellow (Yellow) 11/17/17 03:34 Urine Turbidity Clear (Clear) 11/17/17 03:34 Urine pH 6.0 (5.0-7.0) 11/17/17 03:34 Ur Specific [place] 1.018 (1.003-1.030) 11/17/17 03:34 Urine Protein 100 mg/dl mg/dL (Negative) 11/17/17 03:34 Urine Glucose (UA) Neg mg/dL (Negative) 11/17/17 03:34 Urine Ketones Neg mg/dL (Negative) 11/17/17 03:34 Urine Blood Neg (Negative) 11/17/17 03:34 Urine Nitrite Neg (Negative) 11/17/17 03:34 Urine Bilirubin Neg (Negative) 11/17/17 03:34 Urine Urobilinogen 4.0 mg/dL (<2.0) 11/17/17 03:34 Ur Leukocyte Esterase Sm (Negative) 11/17/17 03:34 Urine WBC (Auto) 5.0 /HPF (0.0-6.0) 11/17/17 03:34 Urine RBC (Auto) 5.0 /HPF (0.0-6.0) 11/17/17 03:34 U Epithel Cells (Auto) 5.0 /HPF (0-13.0) 11/17/17 03:34 Urine Mucus Few /HPF 11/17/17 03:34
[2017-11-21] MEDS: DUONEB *Not for PRN Use IH SCH ×4 (02:00→21:10)
[2017-11-21] MEDS: BROVANA NEBU IH SCH ×2 (08:01→19:44)
[2017-11-21] MEDS: PULMICORT IH SCH ×2 (08:01→19:45)
[2017-11-21] MEDS: PERCOCET 5/325 PO PRN (10:54)
[2017-11-21] MEDS: COLACE PO SCH ×2 (10:54→22:45)
[2017-11-21] MEDS: ECOTRIN PO SCH (10:55)
[2017-11-21] MEDS: LOVENOX SUB-Q SCH (10:55)
--- NOTE | 2017-11-21 11:49 | Progress Note ---
Assessment and Plan Assessment and plan: --Severe depression; denies suicidal thoughts or ideation Patient and her son report that patient has a lot of stress about stuff psych consult -Acute hypercapnic respiratory failure; Continue NIPPV, nebulizers, IV steroids, pulmonary following Evaluation for home oxygen at discharge --Acute exacerbation of COPD; Continue nebulizers, oxygen and steroids --Cor pulmonale; but echocardiogram Moderate pulmonary hypertension, supportive care --Moderate pulmonary hypertension; continue current management Pulmonary following --Mild systolic congestive heart failure, ejection fraction 40-45% Well compensated, continue supportive care --Metabolic encephalopathy; patient is more alert and awake today Responding appropriately --Ongoing tobacco use; smoking cessation counseling done, advised nicotine patch as needed --DVT prophylaxis; Lovenox Physical therapy occupational therapy DC planning per case management; possible home with home health when medically stable Plan of care is reviewed with the patient and her son as well as the nurse History Interval history: Issues seen and examined medical records reviewed Patient is more alert and awake and responding appropriately Complains of lot of stress and depression She reports that she is taking care of her bipolar cousin at home which is very stressful Son also reports that patient worries about many things Denies suicidal thoughts or ideation Vital signs reviewed stable Hospitalist Physical - Constitutional Vitals: Temp Pulse Resp BP Pulse Ox 98.6 F 84 18 108/71 100 11/21/17 08:57 11/21/17 10:00 11/21/17 10:00 11/21/17 08:57 11/21/17 10:00 General appearance: Present: no acute distress, well-nourished - EENT Eyes: Present: PERRL, EOM intact - Neck Neck: Present: supple, normal ROM - Respiratory Respiratory effort: normal Respiratory: bilateral: diminished, rhonchi, negative: rales, wheezing - Cardiovascular Rhythm: regular Heart Sounds: Present: S1 & S2 - Extremities Extremities: no ischemia, No edema - Abdominal General gastrointestinal: soft, non-tender, non-distended, normal bowel sounds - Integumentary Integumentary: Present: clear, warm - Psychiatric Psychiatric: appropriate mood/affect, cooperative - Neurologic Neurologic: moves all extremities Results - Labs CBC & Chem 7: 11/18/17 06:18 11/20/17 13:23 Labs: Laboratory Last Values WBC 6.8 K/mm3 (4.5-11.0) 11/18/17 06:18 RBC 3.94 M/mm3 (3.65-5.03) 11/18/17 06:18 Hgb 12.3 gm/dl (10.1-14.3) 11/18/17 06:18 Hct 38.4 % (30.3-42.9) 11/18/17 06:18 MCV 98 fl (79-97) H 11/18/17 06:18 MCH 31 pg (28-32) 11/18/17 06:18 MCHC 32 % (30-34) 11/18/17 06:18 RDW 15.3 % (13.2-15.2) H 11/18/17 06:18 Plt Count 265 K/mm3 (140-440) 11/18/17 06:18 Lymph % (Auto) 5.6 % (13.4-35.0) L 11/18/17 06:18 [place] % (Auto) 8.6 % (0.0-7.3) H 11/18/17 06:18 Eos % (Auto) 0.0 % (0.0-4.3) 11/18/17 06:18 Baso % (Auto) 0.0 % (0.0-1.8) 11/18/17 06:18 Lymph # 0.4 K/mm3 (1.2-5.4) L 11/18/17 06:18 [place] # 0.6 K/mm3 (0.0-0.8) 11/18/17 06:18 Eos # 0.0 K/mm3 (0.0-0.4) 11/18/17 06:18 Baso # 0.0 K/mm3 (0.0-0.1) 11/18/17 06:18 Add Manual Diff Complete 11/17/17 12:10 Total Counted 100 11/17/17 12:10 Seg Neutrophils % 85.8 % (40.0-70.0) H 11/18/17 06:18 Seg Neuts % (Manual) 92.0 % (40.0-70.0) H 11/17/17 12:10 Band Neutrophils % 1.0 % 11/17/17 12:10 Lymphocytes % (Manual) 4.0 % (13.4-35.0) L 11/17/17 12:10 Reactive Lymphs % (Man) 0 % 11/17/17 12:10 Monocytes % (Manual) 3.0 % (0.0-7.3) 11/17/17 12:10 Eosinophils % (Manual) 0 % (0.0-4.3) 11/17/17 12:10 Basophils % (Manual) 0 % (0.0-1.8) 11/17/17 12:10 Metamyelocytes % 0 % 11/17/17 12:10 Myelocytes % 0 % 11/17/17 12:10 Promyelocytes % 0 % 11/17/17 12:10 Blast Cells % 0 % 11/17/17 12:10 Nucleated RBC % Not Reportable 11/17/17 12:10 Seg Neutrophils # 5.9 K/mm3 (1.8-7.7) 11/18/17 06:18 Seg Neutrophils # Man 5.8 K/mm3 (1.8-7.7) 11/17/17 12:10 Band Neutrophils # 0.1 K/mm3 11/17/17 12:10 Lymphocytes # (Manual) 0.3 K/mm3 (1.2-5.4) L 11/17/17 12:10 Abs React Lymphs (Man) 0.0 K/mm3 11/17/17 12:10 Monocytes # (Manual) 0.2 K/mm3 (0.0-0.8) 11/17/17 12:10 Eosinophils # (Manual) 0.0 K/mm3 (0.0-0.4) 11/17/17 12:10 Basophils # (Manual) 0.0 K/mm3 (0.0-0.1) 11/17/17 12:10 Metamyelocytes # 0.0 K/mm3 11/17/17 12:10 Myelocytes # 0.0 K/mm3 11/17/17 12:10 Promyelocytes # 0.0 K/mm3 11/17/17 12:10 Blast Cells # 0.0 K/mm3 11/17/17 12:10 WBC Morphology Not Reportable 11/17/17 12:10 Hypersegmented Neuts Not Reportable 11/17/17 12:10 Hyposegmented Neuts Not Reportable 11/17/17 12:10 Hypogranular Neuts Not Reportable 11/17/17 12:10 Smudge Cells Not Reportable 11/17/17 12:10 Toxic Granulation Not Reportable 11/17/17 12:10 Toxic Vacuolation Not Reportable 11/17/17 12:10 Dohle Bodies Not Reportable 11/17/17 12:10 Pelger-Huet Anomaly Not Reportable 11/17/17 12:10 Jackie Rods Not Reportable 11/17/17 12:10 Platelet Estimate Consistent w auto 11/17/17 12:10 Clumped Platelets Not Reportable 11/17/17 12:10 Plt Clumps, EDTA Not Reportable 11/17/17 12:10 Large Platelets Not Reportable 11/17/17 12:10 Giant Platelets Not Reportable 11/17/17 12:10 Platelet Satelliting Not Reportable 11/17/17 12:10 Plt Morphology Comment Not Reportable 11/17/17 12:10 RBC Morphology Not Reportable 11/17/17 12:10 Dimorphic RBCs Not Reportable 11/17/17 12:10 Polychromasia Few 11/17/17 12:10 Hypochromasia Not Reportable 11/17/17 12:10 Poikilocytosis Not Reportable 11/17/17 12:10 Anisocytosis Not Reportable 11/17/17 12:10 Microcytosis Not Reportable 11/17/17 12:10 Macrocytosis Not Reportable 11/17/17 12:10 Spherocytes Not Reportable 11/17/17 12:10 Pappenheimer Bodies Not Reportable 11/17/17 12:10 Sickle Cells Not Reportable 11/17/17 12:10 Target Cells Not Reportable 11/17/17 12:10 Tear Drop Cells Not Reportable 11/17/17 12:10 Ovalocytes Not Reportable 11/17/17 12:10 Helmet Cells Not Reportable 11/17/17 12:10 [place] Bodies Not Reportable 11/17/17 12:10 [place] Rings Not Reportable 11/17/17 12:10 [place] Cells Not Reportable 11/17/17 12:10 Bite Cells Not Reportable 11/17/17 12:10 Crenated Cell Not Reportable 11/17/17 12:10 Elliptocytes Not Reportable 11/17/17 12:10 Acanthocytes (Spur) Not Reportable 11/17/17 12:10 Rouleaux Not Reportable 11/17/17 12:10 Hemoglobin C Crystals Not Reportable 11/17/17 12:10 Schistocytes Not Reportable 11/17/17 12:10 Malaria parasites Not Reportable 11/17/17 12:10 [place] Bodies Not Reportable 11/17/17 12:10 Hem Pathologist Commnt No 11/17/17 12:10 D-Dimer 721.35 ng/mlDDU (0-234) H 11/17/17 02:33 POC ABG pH 7.350 (7.35-7.45) 11/18/17 10:24 POC ABG pCO2 78.2 (35-45) H 11/18/17 10:24 POC ABG pO2 118 (80-105) H 11/18/17 10:24 POC ABG HCO3 43.2 11/18/17 10:24 POC ABG Total CO2 46 11/18/17 10:24 POC ABG O2 Sat 98 11/18/17 10:24 POC ABG Base Excess 18 11/18/17 10:24 FiO2 50 % 11/18/17 10:24 Sodium 140 mmol/L (137-145) 11/20/17 13:23 Potassium 4.7 mmol/L (3.6-5.0) 11/20/17 13:23 Chloride 95.1 mmol/L (98-107) L 11/20/17 13:23 Carbon Dioxide 41 mmol/L (22-30) H* 11/20/17 13:23 Anion Gap 9 mmol/L 11/20/17 13:23 BUN 15 mg/dL (7-17) 11/20/17 13:23 Creatinine 0.6 mg/dL (0.7-1.2) L 11/20/17 13:23 Estimated GFR > 60 ml/min 11/20/17 13:23 BUN/Creatinine Ratio 25 % 11/20/17 13:23 Glucose 96 mg/dL (65-100) 11/20/17 13:23 POC Glucose 76 (70-105) 11/20/17 22:44 Calcium 8.7 mg/dL (8.4-10.2) 11/20/17 13:23 Troponin T < 0.010 ng/mL (0.00-0.029) 11/17/17 15:42 NT-Pro-B Natriuret Pep 3039 pg/mL (0-900) H 11/17/17 02:33 Triglycerides 40 mg/dL (2-149) 11/17/17 12:10 Cholesterol 103 mg/dL (50-199) 11/17/17 12:10 LDL Cholesterol Direct 62 mg/dL (50-130) 11/17/17 12:10 HDL Cholesterol 33 mg/dL (40-59) L 11/17/17 12:10 Cholesterol/HDL Ratio 3.12 % 11/17/17 12:10 Urine Color Yellow (Yellow) 11/17/17 03:34 Urine Turbidity Clear (Clear) 11/17/17 03:34 Urine pH 6.0 (5.0-7.0) 11/17/17 03:34 Ur Specific [place] 1.018 (1.003-1.030) 11/17/17 03:34 Urine Protein 100 mg/dl mg/dL (Negative) 11/17/17 03:34 Urine Glucose (UA) Neg mg/dL (Negative) 11/17/17 03:34 Urine Ketones Neg mg/dL (Negative) 11/17/17 03:34 Urine Blood Neg (Negative) 11/17/17 03:34 Urine Nitrite Neg (Negative) 11/17/17 03:34 Urine Bilirubin Neg (Negative) 11/17/17 03:34 Urine Urobilinogen 4.0 mg/dL (<2.0) 11/17/17 03:34 Ur Leukocyte Esterase Sm (Negative) 11/17/17 03:34 Urine WBC (Auto) 5.0 /HPF (0.0-6.0) 11/17/17 03:34 Urine RBC (Auto) 5.0 /HPF (0.0-6.0) 11/17/17 03:34 U Epithel Cells (Auto) 5.0 /HPF (0-13.0) 11/17/17 03:34 Urine Mucus Few /HPF 11/17/17 03:34
--- NOTE | 2017-11-21 14:23 | Progress Note ---
Assessment and Plan Patient weak. Resting on 3 litres O2. O2 saturation 98%.No acute respiratory distress. - Patient Problems (1) Acute respiratory failure Current Visit: Yes Status: Acute Qualifiers: Respiratory failure complication: hypercapnia Qualified Code(s): J96.02 - Acute respiratory failure with hypercapnia Plan to address problem: O2 3 litres via nasal canula. Brovanna/Budesonide aerosol treatments q 12 hours. Albuterol/atrovent aerosol treatments q 12 hours. Continue S/C Lovenox. Recommend Pepcid 20 mg po qd. (2) COPD exacerbation Current Visit: Yes Status: Acute Plan to address problem: O2 3 litres via nasal canula. Brovanna/Budesonide aerosol treatments q 12 hours. Albuterol/atrovent aerosol treatments q 12 hours. Continue S/C Lovenox. (3) Encephalopathy Current Visit: Yes Status: Acute Plan to address problem: Management as per primary care and neurology. Subjective Date of service: 11/21/17 Principal diagnosis: AECOPD Interval history: Patient weak. Resting on 3 litres O2. O2 saturation 98%.No acute respiratory distress. Objective Vital Signs - 12hr 11/21/17 11/21/17 11/21/17 05:30 06:02 08:13 Temperature 98.4 F Pulse Rate 75 77 Pulse Rate [ 82 Anterior Throughout] Respiratory 20 Rate Respiratory 18 Rate [Anterior Throughout] Blood Pressure Blood Pressure 116/76 [Left] O2 Sat by Pulse 100 100 Oximetry 11/21/17 11/21/17 11/21/17 08:57 10:00 12:08 Temperature 98.6 F 98.5 F Pulse Rate 73 71 Pulse Rate [ 84 Anterior Throughout] Respiratory 16 18 Rate Respiratory 18 Rate [Anterior Throughout] Blood Pressure 108/71 91/55 Blood Pressure [Left] O2 Sat by Pulse 98 100 98 Oximetry 11/21/17 14:01 Temperature Pulse Rate Pulse Rate [ 65 Anterior Throughout] Respiratory Rate Respiratory 20 Rate [Anterior Throughout] Blood Pressure Blood Pressure [Left] O2 Sat by Pulse Oximetry Constitutional: no acute distress, alert Eyes: non-icteric ENT: oropharynx moist, oropharyngeal exudate pre Neck: supple, no lymphadenopathy, no JVD, other (no thyromegaly) Ascultation: Bilateral: diminished breath sounds, rhonchi Percussion: Bilateral: not dull Cardiovascular: regular rate and rhythm, other (no rubs or murmurs) Gastrointestinal: normoactive bowel sounds, soft, non-tender, non-distended, other (no palpable HSM) Integumentary: normal Extremities: no cyanosis, no edema, pink and warm, pulses normal, no ischemia or petechiae Neurologic: normal mental status, non-focal exam, pupils equal and round, motor strength normal and, other Psychiatric: mood appropriate, affect normal CBC and BMP: 11/18/17 06:18 11/20/17 13:23 ABG, PT/INR, D-dimer: ABG POC ABG pH 7.350 (7.35-7.45) 11/18/17 10:24 POC ABG pCO2 78.2 (35-45) H 11/18/17 10:24 POC ABG pO2 118 (80-105) H 11/18/17 10:24 POC ABG HCO3 43.2 11/18/17 10:24 POC ABG Total CO2 46 11/18/17 10:24 POC ABG O2 Sat 98 11/18/17 10:24 PT/INR, D-dimer D-Dimer 721.35 ng/mlDDU (0-234) H 11/17/17 02:33 Abnormal lab findings: Abnormal Labs 11/17/17 11/17/17 11/17/17 01:37 01:37 02:33 Hct 43.7 H MCV RDW 15.3 H Lymph % (Auto) [place] % (Auto) 12.5 H Lymph # [place] # 0.9 H Seg Neutrophils % Seg Neuts % (Manual) Lymphocytes % (Manual) Lymphocytes # (Manual) D-Dimer 721.35 H POC ABG pH POC ABG pCO2 POC ABG pO2 Sodium Potassium Chloride 91.9 L Carbon Dioxide 36 H BUN 18 H Creatinine Glucose 118 H POC Glucose NT-Pro-B Natriuret Pep HDL Cholesterol 11/17/17 11/17/17 11/17/17 02:33 07:51 12:10 Hct 43.1 H MCV RDW Lymph % (Auto) [place] % (Auto) Lymph # [place] # Seg Neutrophils % Seg Neuts % (Manual) 92.0 H Lymphocytes % (Manual) 4.0 L Lymphocytes # (Manual) 0.3 L D-Dimer POC ABG pH 7.198 L POC ABG pCO2 96.0 H POC ABG pO2 46 L Sodium Potassium Chloride Carbon Dioxide BUN Creatinine Glucose POC Glucose NT-Pro-B Natriuret Pep 3039 H HDL Cholesterol 11/17/17 11/17/17 11/18/17 12:10 16:01 06:18 Hct MCV 98 H RDW 15.3 H Lymph % (Auto) 5.6 L [place] % (Auto) 8.6 H Lymph # 0.4 L [place] # Seg Neutrophils % 85.8 H Seg Neuts % (Manual) Lymphocytes % (Manual) Lymphocytes # (Manual) D-Dimer POC ABG pH POC ABG pCO2 70.1 H POC ABG pO2 125 H Sodium 133 L Potassium 5.6 H D Chloride 92.4 L Carbon Dioxide 32 H BUN 18 H Creatinine Glucose 114 H POC Glucose NT-Pro-B Natriuret Pep HDL Cholesterol 33 L 11/18/17 11/18/17 11/20/17 06:18 10:24 12:04 Hct MCV RDW Lymph % (Auto) [place] % (Auto) Lymph # [place] # Seg Neutrophils % Seg Neuts % (Manual) Lymphocytes % (Manual) Lymphocytes # (Manual) D-Dimer POC ABG pH POC ABG pCO2 78.2 H POC ABG pO2 118 H Sodium Potassium 5.2 H Chloride 93.6 L Carbon Dioxide 39 H D BUN 21 H Creatinine Glucose 111 H POC Glucose 132 H NT-Pro-B Natriuret Pep HDL Cholesterol 11/20/17 13:23 Hct MCV RDW Lymph % (Auto) [place] % (Auto) Lymph # [place] # Seg Neutrophils % Seg Neuts % (Manual) Lymphocytes % (Manual) Lymphocytes # (Manual) D-Dimer POC ABG pH POC ABG pCO2 POC ABG pO2 Sodium Potassium Chloride 95.1 L Carbon Dioxide 41 H* BUN Creatinine 0.6 L Glucose POC Glucose NT-Pro-B Natriuret Pep HDL Cholesterol CT scan - chest: report reviewed (No PE, Borderline enlarged heart. Changes of COPD.), image reviewed
[2017-11-22] MEDS: DUONEB *Not for PRN Use IH SCH ×4 (02:11→21:05)
[2017-11-22] MEDS: BROVANA NEBU IH SCH ×2 (07:36→21:04)
[2017-11-22] MEDS: PULMICORT IH SCH ×2 (07:36→21:04)
[2017-11-22] MEDS: LOVENOX SUB-Q SCH (11:10)
[2017-11-22] MEDS: ECOTRIN PO SCH (11:10)
[2017-11-22] MEDS: COLACE PO SCH ×2 (11:11→22:54)
[2017-11-22] MEDS: PERCOCET 5/325 PO PRN (11:11)
--- NOTE | 2017-11-22 14:43 | Progress Note ---
Assessment and Plan Patient alert, awake .Patient is weak. Resting on 3 litres O2. O2 saturation 97% .No acute respiratory distress. - Patient Problems (1) Acute respiratory failure Current Visit: Yes Status: Acute Qualifiers: Respiratory failure complication: hypercapnia Qualified Code(s): J96.02 - Acute respiratory failure with hypercapnia Plan to address problem: O2 3 litres via nasal canula. Brovanna/Budesonide aerosol treatments q 12 hours. Albuterol/atrovent aerosol treatments q 12 hours. Continue S/C Lovenox. Recommend Pepcid 20 mg po qd. (2) COPD exacerbation Current Visit: Yes Status: Acute Plan to address problem: O2 3 litres via nasal canula. Brovanna/Budesonide aerosol treatments q 12 hours. Albuterol/atrovent aerosol treatments q 12 hours. Continue S/C Lovenox. (3) Encephalopathy Current Visit: Yes Status: Acute Plan to address problem: Management as per primary care and neurology. Subjective Date of service: 11/22/17 Principal diagnosis: AECOPD Interval history: Patient alert, awake .Patient is weak. Resting on 3 litres O2. O2 saturation 97% .No acute respiratory distress. Objective Vital Signs - 12hr 11/22/17 11/22/17 11/22/17 03:31 07:36 07:55 Temperature 98.1 F Pulse Rate 76 Pulse Rate [ 69 72 Anterior Throughout] Respiratory 18 Rate Respiratory 18 18 Rate [Anterior Throughout] Blood Pressure 114/56 O2 Sat by Pulse 98 100 Oximetry 11/22/17 09:00 Temperature 98.1 F Pulse Rate 82 Pulse Rate [ Anterior Throughout] Respiratory 16 Rate Respiratory Rate [Anterior Throughout] Blood Pressure 103/49 O2 Sat by Pulse 97 Oximetry Constitutional: no acute distress, alert Eyes: non-icteric ENT: oropharynx moist, oropharyngeal exudate pre Neck: supple, no lymphadenopathy, no JVD, other (no thyromegaly) Ascultation: Bilateral: diminished breath sounds, rhonchi Percussion: Bilateral: not dull Cardiovascular: regular rate and rhythm, other (no rubs or murmurs) Gastrointestinal: normoactive bowel sounds, soft, non-tender, non-distended, other (no palpable HSM) Integumentary: normal Extremities: no cyanosis, no edema, pink and warm, pulses normal, no ischemia or petechiae Neurologic: normal mental status, non-focal exam, pupils equal and round, motor strength normal and, other Psychiatric: mood appropriate, affect normal CBC and BMP: 11/18/17 06:18 11/20/17 13:23 ABG, PT/INR, D-dimer: ABG POC ABG pH 7.350 (7.35-7.45) 11/18/17 10:24 POC ABG pCO2 78.2 (35-45) H 11/18/17 10:24 POC ABG pO2 118 (80-105) H 11/18/17 10:24 POC ABG HCO3 43.2 11/18/17 10:24 POC ABG Total CO2 46 11/18/17 10:24 POC ABG O2 Sat 98 11/18/17 10:24 PT/INR, D-dimer D-Dimer 721.35 ng/mlDDU (0-234) H 11/17/17 02:33 Abnormal lab findings: Abnormal Labs 11/17/17 11/17/17 11/17/17 01:37 01:37 02:33 Hct 43.7 H MCV RDW 15.3 H Lymph % (Auto) [place] % (Auto) 12.5 H Lymph # [place] # 0.9 H Seg Neutrophils % Seg Neuts % (Manual) Lymphocytes % (Manual) Lymphocytes # (Manual) D-Dimer 721.35 H POC ABG pH POC ABG pCO2 POC ABG pO2 Sodium Potassium Chloride 91.9 L Carbon Dioxide 36 H BUN 18 H Creatinine Glucose 118 H POC Glucose NT-Pro-B Natriuret Pep HDL Cholesterol 11/17/17 11/17/17 11/17/17 02:33 07:51 12:10 Hct 43.1 H MCV RDW Lymph % (Auto) [place] % (Auto) Lymph # [place] # Seg Neutrophils % Seg Neuts % (Manual) 92.0 H Lymphocytes % (Manual) 4.0 L Lymphocytes # (Manual) 0.3 L D-Dimer POC ABG pH 7.198 L POC ABG pCO2 96.0 H POC ABG pO2 46 L Sodium Potassium Chloride Carbon Dioxide BUN Creatinine Glucose POC Glucose NT-Pro-B Natriuret Pep 3039 H HDL Cholesterol 11/17/17 11/17/17 11/18/17 12:10 16:01 06:18 Hct MCV 98 H RDW 15.3 H Lymph % (Auto) 5.6 L [place] % (Auto) 8.6 H Lymph # 0.4 L [place] # Seg Neutrophils % 85.8 H Seg Neuts % (Manual) Lymphocytes % (Manual) Lymphocytes # (Manual) D-Dimer POC ABG pH POC ABG pCO2 70.1 H POC ABG pO2 125 H Sodium 133 L Potassium 5.6 H D Chloride 92.4 L Carbon Dioxide 32 H BUN 18 H Creatinine Glucose 114 H POC Glucose NT-Pro-B Natriuret Pep HDL Cholesterol 33 L 11/18/17 11/18/17 11/20/17 06:18 10:24 12:04 Hct MCV RDW Lymph % (Auto) [place] % (Auto) Lymph # [place] # Seg Neutrophils % Seg Neuts % (Manual) Lymphocytes % (Manual) Lymphocytes # (Manual) D-Dimer POC ABG pH POC ABG pCO2 78.2 H POC ABG pO2 118 H Sodium Potassium 5.2 H Chloride 93.6 L Carbon Dioxide 39 H D BUN 21 H Creatinine Glucose 111 H POC Glucose 132 H NT-Pro-B Natriuret Pep HDL Cholesterol 11/20/17 13:23 Hct MCV RDW Lymph % (Auto) [place] % (Auto) Lymph # [place] # Seg Neutrophils % Seg Neuts % (Manual) Lymphocytes % (Manual) Lymphocytes # (Manual) D-Dimer POC ABG pH POC ABG pCO2 POC ABG pO2 Sodium Potassium Chloride 95.1 L Carbon Dioxide 41 H* BUN Creatinine 0.6 L Glucose POC Glucose NT-Pro-B Natriuret Pep HDL Cholesterol
--- NOTE | 2017-11-22 21:05 | Progress Note ---
Assessment and Plan Assessment and plan: --Severe depression; denies suicidal thoughts or ideation Patient and her son report that patient has a lot of stress about stuff psych consult -Acute hypercapnic respiratory failure; Continue NIPPV, nebulizers, IV steroids, pulmonary following Evaluation for home oxygen at discharge --Acute exacerbation of COPD; Continue nebulizers, oxygen and steroids --Cor pulmonale; but echocardiogram Moderate pulmonary hypertension, supportive care --Moderate pulmonary hypertension; continue current management Pulmonary following --Mild systolic congestive heart failure, ejection fraction 40-45% Well compensated, continue supportive care --Metabolic encephalopathy; patient is more alert and awake today Responding appropriately --Ongoing tobacco use; smoking cessation counseling done, advised nicotine patch as needed --DVT prophylaxis; Lovenox Physical therapy occupational therapy DC planning per case management; possible home with home health when medically stable Plan of care is reviewed with the patient and her son as well as the nurse History Interval history: Patient complains of mild shortness of breath Denies chest pain Denies nausea or vomiting Vital signs reviewed Hospitalist Physical - Constitutional Vitals: Temp Pulse Resp BP Pulse Ox 98.0 F 77 18 106/63 96 11/22/17 19:47 11/22/17 19:47 11/22/17 19:47 11/22/17 19:47 11/22/17 19:47 General appearance: Present: no acute distress, well-nourished - EENT Eyes: Present: PERRL, EOM intact - Neck Neck: Present: supple, normal ROM - Respiratory Respiratory effort: normal Respiratory: bilateral: diminished, wheezing, negative: rales, rhonchi - Cardiovascular Rhythm: regular Heart Sounds: Present: S1 & S2 - Extremities Extremities: no ischemia, No edema - Abdominal General gastrointestinal: soft, non-tender, non-distended, normal bowel sounds - Integumentary Integumentary: Present: clear, warm - Psychiatric Psychiatric: appropriate mood/affect, cooperative - Neurologic Neurologic: CNII-XII intact, moves all extremities Results - Labs CBC & Chem 7: 11/18/17 06:18 0218 13:23 Labs: Laboratory Last Values WBC 6.8 K/mm3 (4.5-11.0) 11/18/17 06:18 RBC 3.94 M/mm3 (3.65-5.03) 11/18/17 06:18 Hgb 12.3 gm/dl (10.1-14.3) 11/18/17 06:18 Hct 38.4 % (30.3-42.9) 11/18/17 06:18 MCV 98 fl (79-97) H 11/18/17 06:18 MCH 31 pg (28-32) 11/18/17 06:18 MCHC 32 % (30-34) 11/18/17 06:18 RDW 15.3 % (13.2-15.2) H 11/18/17 06:18 Plt Count 265 K/mm3 (140-440) 11/18/17 06:18 Lymph % (Auto) 5.6 % (13.4-35.0) L 11/18/17 06:18 [place] % (Auto) 8.6 % (0.0-7.3) H 11/18/17 06:18 Eos % (Auto) 0.0 % (0.0-4.3) 11/18/17 06:18 Baso % (Auto) 0.0 % (0.0-1.8) 11/18/17 06:18 Lymph # 0.4 K/mm3 (1.2-5.4) L 11/18/17 06:18 [place] # 0.6 K/mm3 (0.0-0.8) 11/18/17 06:18 Eos # 0.0 K/mm3 (0.0-0.4) 11/18/17 06:18 Baso # 0.0 K/mm3 (0.0-0.1) 11/18/17 06:18 Add Manual Diff Complete 11/17/17 12:10 Total Counted 100 11/17/17 12:10 Seg Neutrophils % 85.8 % (40.0-70.0) H 11/18/17 06:18 Seg Neuts % (Manual) 92.0 % (40.0-70.0) H 11/17/17 12:10 Band Neutrophils % 1.0 % 11/17/17 12:10 Lymphocytes % (Manual) 4.0 % (13.4-35.0) L 11/17/17 12:10 Reactive Lymphs % (Man) 0 % 11/17/17 12:10 Monocytes % (Manual) 3.0 % (0.0-7.3) 11/17/17 12:10 Eosinophils % (Manual) 0 % (0.0-4.3) 11/17/17 12:10 Basophils % (Manual) 0 % (0.0-1.8) 11/17/17 12:10 Metamyelocytes % 0 % 11/17/17 12:10 Myelocytes % 0 % 11/17/17 12:10 Promyelocytes % 0 % 11/17/17 12:10 Blast Cells % 0 % 11/17/17 12:10 Nucleated RBC % Not Reportable 11/17/17 12:10 Seg Neutrophils # 5.9 K/mm3 (1.8-7.7) 11/18/17 06:18 Seg Neutrophils # Man 5.8 K/mm3 (1.8-7.7) 11/17/17 12:10 Band Neutrophils # 0.1 K/mm3 11/17/17 12:10 Lymphocytes # (Manual) 0.3 K/mm3 (1.2-5.4) L 11/17/17 12:10 Abs React Lymphs (Man) 0.0 K/mm3 11/17/17 12:10 Monocytes # (Manual) 0.2 K/mm3 (0.0-0.8) 11/17/17 12:10 Eosinophils # (Manual) 0.0 K/mm3 (0.0-0.4) 11/17/17 12:10 Basophils # (Manual) 0.0 K/mm3 (0.0-0.1) 11/17/17 12:10 Metamyelocytes # 0.0 K/mm3 11/17/17 12:10 Myelocytes # 0.0 K/mm3 11/17/17 12:10 Promyelocytes # 0.0 K/mm3 11/17/17 12:10 Blast Cells # 0.0 K/mm3 11/17/17 12:10 WBC Morphology Not Reportable 11/17/17 12:10 Hypersegmented Neuts Not Reportable 11/17/17 12:10 Hyposegmented Neuts Not Reportable 11/17/17 12:10 Hypogranular Neuts Not Reportable 11/17/17 12:10 Smudge Cells Not Reportable 11/17/17 12:10 Toxic Granulation Not Reportable 11/17/17 12:10 Toxic Vacuolation Not Reportable 11/17/17 12:10 Dohle Bodies Not Reportable 11/17/17 12:10 Pelger-Huet Anomaly Not Reportable 11/17/17 12:10 Jackie Rods Not Reportable 11/17/17 12:10 Platelet Estimate Consistent w auto 11/17/17 12:10 Clumped Platelets Not Reportable 11/17/17 12:10 Plt Clumps, EDTA Not Reportable 11/17/17 12:10 Large Platelets Not Reportable 11/17/17 12:10 Giant Platelets Not Reportable 11/17/17 12:10 Platelet Satelliting Not Reportable 11/17/17 12:10 Plt Morphology Comment Not Reportable 11/17/17 12:10 RBC Morphology Not Reportable 11/17/17 12:10 Dimorphic RBCs Not Reportable 11/17/17 12:10 Polychromasia Few 11/17/17 12:10 Hypochromasia Not Reportable 11/17/17 12:10 Poikilocytosis Not Reportable 11/17/17 12:10 Anisocytosis Not Reportable 11/17/17 12:10 Microcytosis Not Reportable 11/17/17 12:10 Macrocytosis Not Reportable 11/17/17 12:10 Spherocytes Not Reportable 11/17/17 12:10 Pappenheimer Bodies Not Reportable 11/17/17 12:10 Sickle Cells Not Reportable 11/17/17 12:10 Target Cells Not Reportable 11/17/17 12:10 Tear Drop Cells Not Reportable 11/17/17 12:10 Ovalocytes Not Reportable 11/17/17 12:10 Helmet Cells Not Reportable 11/17/17 12:10 [place] Bodies Not Reportable 11/17/17 12:10 [place] Rings Not Reportable 11/17/17 12:10 [place] Cells Not Reportable 11/17/17 12:10 Bite Cells Not Reportable 11/17/17 12:10 Crenated Cell Not Reportable 11/17/17 12:10 Elliptocytes Not Reportable 11/17/17 12:10 Acanthocytes (Spur) Not Reportable 11/17/17 12:10 Rouleaux Not Reportable 11/17/17 12:10 Hemoglobin C Crystals Not Reportable 11/17/17 12:10 Schistocytes Not Reportable 11/17/17 12:10 Malaria parasites Not Reportable 11/17/17 12:10 Jose Bodies Not Reportable 11/17/17 12:10 Hem Pathologist Commnt No 11/17/17 12:10 D-Dimer 721.35 ng/mlDDU (0-234) H 11/17/17 02:33 POC ABG pH 7.350 (7.35-7.45) 11/18/17 10:24 POC ABG pCO2 78.2 (35-45) H 11/18/17 10:24 POC ABG pO2 118 (80-105) H 11/18/17 10:24 POC ABG HCO3 43.2 11/18/17 10:24 POC ABG Total CO2 46 11/18/17 10:24 POC ABG O2 Sat 98 11/18/17 10:24 POC ABG Base Excess 18 11/18/17 10:24 FiO2 50 % 11/18/17 10:24 Sodium 140 mmol/L (137-145) 11/20/17 13:23 Potassium 4.7 mmol/L (3.6-5.0) 11/20/17 13:23 Chloride 95.1 mmol/L (98-107) L 11/20/17 13:23 Carbon Dioxide 41 mmol/L (22-30) H* 11/20/17 13:23 Anion Gap 9 mmol/L 11/20/17 13:23 BUN 15 mg/dL (7-17) 11/20/17 13:23 Creatinine 0.6 mg/dL (0.7-1.2) L 11/20/17 13:23 Estimated GFR > 60 ml/min 11/20/17 13:23 BUN/Creatinine Ratio 25 % 11/20/17 13:23 Glucose 96 mg/dL (65-100) 11/20/17 13:23 POC Glucose 85 (70-105) 11/21/17 21:05 Calcium 8.7 mg/dL (8.4-10.2) 11/20/17 13:23 Troponin T < 0.010 ng/mL (0.00-0.029) 11/17/17 15:42 NT-Pro-B Natriuret Pep 3039 pg/mL (0-900) H 11/17/17 02:33 Triglycerides 40 mg/dL (2-149) 11/17/17 12:10 Cholesterol 103 mg/dL (50-199) 11/17/17 12:10 LDL Cholesterol Direct 62 mg/dL (50-130) 11/17/17 12:10 HDL Cholesterol 33 mg/dL (40-59) L 11/17/17 12:10 Cholesterol/HDL Ratio 3.12 % 11/17/17 12:10 Urine Color Yellow (Yellow) 11/17/17 03:34 Urine Turbidity Clear (Clear) 11/17/17 03:34 Urine pH 6.0 (5.0-7.0) 11/17/17 03:34 Ur Specific [place] 1.018 (1.003-1.030) 11/17/17 03:34 Urine Protein 100 mg/dl mg/dL (Negative) 11/17/17 03:34 Urine Glucose (UA) Neg mg/dL (Negative) 11/17/17 03:34 Urine Ketones Neg mg/dL (Negative) 11/17/17 03:34 Urine Blood Neg (Negative) 11/17/17 03:34 Urine Nitrite Neg (Negative) 11/17/17 03:34 Urine Bilirubin Neg (Negative) 11/17/17 03:34 Urine Urobilinogen 4.0 mg/dL (<2.0) 11/17/17 03:34 Ur Leukocyte Esterase Sm (Negative) 11/17/17 03:34 Urine WBC (Auto) 5.0 /HPF (0.0-6.0) 11/17/17 03:34 Urine RBC (Auto) 5.0 /HPF (0.0-6.0) 11/17/17 03:34 U Epithel Cells (Auto) 5.0 /HPF (0-13.0) 11/17/17 03:34 Urine Mucus Few /HPF 11/17/17 03:34
[2017-11-23] MEDS: DUONEB *Not for PRN Use IH SCH ×4 (02:44→21:33)
[2017-11-23] MEDS: BROVANA NEBU IH SCH ×2 (08:20→21:33)
[2017-11-23] MEDS: PULMICORT IH SCH ×2 (08:20→21:33)
--- NOTE | 2017-11-23 09:22 | Progress Note ---
Assessment and Plan Acute hypercapnic rsepiratory failure Acute encephalopathy COPD AE Tobacco abuse disorder with nicotine dependence Pleuritic chest pain with elevated BNP Cor pulmonale Echocardiogram demonstrates evidence of cor pulmonale with dilated right heart chambers, moderate tricuspid regurgitation and moderate pulmonary hypertension. The left ventricle is normal in size, with left ventricular ejection fraction 45-50%. -Continue with NIPPV, prn -Serial ABGs -Nicotine withdrawal precautions - no evidence of PE on CTA -Bronchodilators-Steroids with accucheck and glycemic control -VTE prophylaxis -Smoking cessation counselling done at the bedside - Subjective Date of service: 11/23/17 Principal diagnosis: AECOPD Interval history: Patient is seen today for: Acute on Chronic Hypoxemic Hypercapnic Respiratory Failure; AECOPD Seen and examined at bedside; 24hour events reviewed; nursing and respiratory care staff consulted; no adverse overnight events reported to me; resting peacefully in bed; remains on supplemental oxygen; placed back on BIPAP earlier due to hypercapnia; alert now and denies acute chest pains Objective - Exam Narrative Exam: Constitutional: alert, appears uncomfortable Eyes: non-icteric ENT: oropharynx moist, oropharyngeal exudate pre Neck: supple, no lymphadenopathy, no JVD, other (no thyromegaly) Ascultation: Bilateral: diminished breath sounds, rhonchi Percussion: Bilateral: not dull Cardiovascular: regular rate and rhythm, other (no rubs or murmurs) Gastrointestinal: normoactive bowel sounds, soft, non-tender, non-distended, other (no palpable HSM) Integumentary: normal Extremities: no cyanosis, no edema, pink and warm, pulses normal, no ischemia or petechiae Neurologic: normal mental status, non-focal exam, pupils equal and round, motor strength normal and, other Psychiatric: mood appropriate, affect normal Vital Signs - 12hr 11/22/17 11/22/17 11/23/17 22:00 23:37 02:45 Temperature 98.3 F Pulse Rate 77 79 Pulse Rate [ 74 Anterior Throughout] Respiratory 18 Rate Respiratory 16 Rate [Anterior Throughout] Blood Pressure 100/62 O2 Sat by Pulse 98 Oximetry 11/23/17 11/23/17 11/23/17 02:54 04:55 08:30 Temperature 97.9 F Pulse Rate 78 Pulse Rate [ 75 78 Anterior Throughout] Respiratory 18 Rate Respiratory 14 18 Rate [Anterior Throughout] Blood Pressure 97/62 O2 Sat by Pulse 98 Oximetry 11/23/17 11/23/17 08:40 08:59 Temperature Pulse Rate Pulse Rate [ 77 Anterior Throughout] Respiratory Rate Respiratory 18 Rate [Anterior Throughout] Blood Pressure O2 Sat by Pulse 98 Oximetry Constitutional: no acute distress, alert Eyes: non-icteric ENT: oropharynx moist, oropharyngeal exudate pre Neck: supple, no lymphadenopathy, no JVD, other (no thyromegaly) Ascultation: Bilateral: diminished breath sounds, rhonchi Percussion: Bilateral: not dull Cardiovascular: regular rate and rhythm, other (no rubs or murmurs) Gastrointestinal: normoactive bowel sounds, soft, non-tender, non-distended, other (no palpable HSM) Integumentary: normal Extremities: no cyanosis, no edema, pink and warm, pulses normal, no ischemia or petechiae Neurologic: normal mental status, non-focal exam, pupils equal and round, motor strength normal and, other Psychiatric: mood appropriate, affect normal CBC and BMP: 11/18/17 06:18 11/20/17 13:23 ABG, PT/INR, D-dimer: ABG POC ABG pH 7.350 (7.35-7.45) 11/18/17 10:24 POC ABG pCO2 78.2 (35-45) H 11/18/17 10:24 POC ABG pO2 118 (80-105) H 11/18/17 10:24 POC ABG HCO3 43.2 11/18/17 10:24 POC ABG Total CO2 46 11/18/17 10:24 POC ABG O2 Sat 98 11/18/17 10:24 PT/INR, D-dimer D-Dimer 721.35 ng/mlDDU (0-234) H 11/17/17 02:33 Abnormal lab findings: Abnormal Labs 11/17/17 11/17/17 11/17/17 01:37 01:37 02:33 Hct 43.7 H MCV RDW 15.3 H Lymph % (Auto) [place] % (Auto) 12.5 H Lymph # [place] # 0.9 H Seg Neutrophils % Seg Neuts % (Manual) Lymphocytes % (Manual) Lymphocytes # (Manual) D-Dimer 721.35 H POC ABG pH POC ABG pCO2 POC ABG pO2 Sodium Potassium Chloride 91.9 L Carbon Dioxide 36 H BUN 18 H Creatinine Glucose 118 H POC Glucose NT-Pro-B Natriuret Pep HDL Cholesterol 11/17/17 11/17/17 11/17/17 02:33 07:51 12:10 Hct 43.1 H MCV RDW Lymph % (Auto) [place] % (Auto) Lymph # [place] # Seg Neutrophils % Seg Neuts % (Manual) 92.0 H Lymphocytes % (Manual) 4.0 L Lymphocytes # (Manual) 0.3 L D-Dimer POC ABG pH 7.198 L POC ABG pCO2 96.0 H POC ABG pO2 46 L Sodium Potassium Chloride Carbon Dioxide BUN Creatinine Glucose POC Glucose NT-Pro-B Natriuret Pep 3039 H HDL Cholesterol 11/17/17 11/17/17 11/18/17 12:10 16:01 06:18 Hct MCV 98 H RDW 15.3 H Lymph % (Auto) 5.6 L [place] % (Auto) 8.6 H Lymph # 0.4 L [place] # Seg Neutrophils % 85.8 H Seg Neuts % (Manual) Lymphocytes % (Manual) Lymphocytes # (Manual) D-Dimer POC ABG pH POC ABG pCO2 70.1 H POC ABG pO2 125 H Sodium 133 L Potassium 5.6 H D Chloride 92.4 L Carbon Dioxide 32 H BUN 18 H Creatinine Glucose 114 H POC Glucose NT-Pro-B Natriuret Pep HDL Cholesterol 33 L 11/18/17 11/18/17 11/20/17 06:18 10:24 12:04 Hct MCV RDW Lymph % (Auto) [place] % (Auto) Lymph # [place] # Seg Neutrophils % Seg Neuts % (Manual) Lymphocytes % (Manual) Lymphocytes # (Manual) D-Dimer POC ABG pH POC ABG pCO2 78.2 H POC ABG pO2 118 H Sodium Potassium 5.2 H Chloride 93.6 L Carbon Dioxide 39 H D BUN 21 H Creatinine Glucose 111 H POC Glucose 132 H NT-Pro-B Natriuret Pep HDL Cholesterol 11/20/17 13:23 Hct MCV RDW Lymph % (Auto) [place] % (Auto) Lymph # [place] # Seg Neutrophils % Seg Neuts % (Manual) Lymphocytes % (Manual) Lymphocytes # (Manual) D-Dimer POC ABG pH POC ABG pCO2 POC ABG pO2 Sodium Potassium Chloride 95.1 L Carbon Dioxide 41 H* BUN Creatinine 0.6 L Glucose POC Glucose NT-Pro-B Natriuret Pep HDL Cholesterol
[2017-11-23] MEDS: ECOTRIN PO SCH (10:30)
[2017-11-23] MEDS: COLACE PO SCH ×2 (10:30→21:21)
[2017-11-23] MEDS: LOVENOX SUB-Q SCH (10:30)
--- NOTE | 2017-11-23 11:52 | Progress Note ---
Assessment and Plan Assessment and plan: --Depression; feels better today Pending psych evaluation, inpatient versus outpatient --Acute hypercapnic respiratory failure; Continue NIPPV, nebulizers, off steroids, pulmonary following Evaluation for home oxygen at discharge --Acute exacerbation of COPD; Continue nebulizers, oxygen and steroids --Cor pulmonale; but echocardiogram Moderate pulmonary hypertension, supportive care --Moderate pulmonary hypertension; continue current management Pulmonary following --Mild systolic congestive heart failure, ejection fraction 40-45% Well compensated, continue supportive care --Metabolic encephalopathy; resolved back to baseline --Ongoing tobacco use; smoking cessation counseling done, advised nicotine patch as needed --DVT prophylaxis; Lovenox Physical therapy occupational therapy DC planning per case management; possible home with home health when medically stable Evaluation for home oxygen Plan of care is reviewed with the patient and her son as well as the nurse History Interval history: Patient seen and examined Patient feels better today, denies chest pain shortness of breath Cheerful, ambulated in the hallway with the therapy Alert awake Oriented 3 not in acute distress Vital signs reviewed Hospitalist Physical - Constitutional Vitals: Temp Pulse Resp BP Pulse Ox 97.9 F 72 18 97/62 99 11/23/17 04:55 11/23/17 10:00 11/23/17 10:00 11/23/17 04:55 11/23/17 10:00 General appearance: Present: no acute distress, well-nourished - EENT Eyes: Present: PERRL, EOM intact - Neck Neck: Present: supple, normal ROM - Respiratory Respiratory: bilateral: diminished, rhonchi, negative: rales, wheezing - Cardiovascular Rhythm: regular Heart Sounds: Present: S1 & S2 - Extremities Extremities: no ischemia, No edema - Abdominal General gastrointestinal: soft, non-tender, non-distended, normal bowel sounds - Integumentary Integumentary: Present: clear, warm - Psychiatric Psychiatric: appropriate mood/affect, cooperative - Neurologic Neurologic: CNII-XII intact, moves all extremities Results - Labs CBC & Chem 7: 11/18/17 06:18 0218 13:23 Labs: Laboratory Last Values WBC 6.8 K/mm3 (4.5-11.0) 11/18/17 06:18 RBC 3.94 M/mm3 (3.65-5.03) 11/18/17 06:18 Hgb 12.3 gm/dl (10.1-14.3) 11/18/17 06:18 Hct 38.4 % (30.3-42.9) 11/18/17 06:18 MCV 98 fl (79-97) H 11/18/17 06:18 MCH 31 pg (28-32) 11/18/17 06:18 MCHC 32 % (30-34) 11/18/17 06:18 RDW 15.3 % (13.2-15.2) H 11/18/17 06:18 Plt Count 265 K/mm3 (140-440) 11/18/17 06:18 Lymph % (Auto) 5.6 % (13.4-35.0) L 11/18/17 06:18 [place] % (Auto) 8.6 % (0.0-7.3) H 11/18/17 06:18 Eos % (Auto) 0.0 % (0.0-4.3) 11/18/17 06:18 Baso % (Auto) 0.0 % (0.0-1.8) 11/18/17 06:18 Lymph # 0.4 K/mm3 (1.2-5.4) L 11/18/17 06:18 [place] # 0.6 K/mm3 (0.0-0.8) 11/18/17 06:18 Eos # 0.0 K/mm3 (0.0-0.4) 11/18/17 06:18 Baso # 0.0 K/mm3 (0.0-0.1) 11/18/17 06:18 Add Manual Diff Complete 11/17/17 12:10 Total Counted 100 11/17/17 12:10 Seg Neutrophils % 85.8 % (40.0-70.0) H 11/18/17 06:18 Seg Neuts % (Manual) 92.0 % (40.0-70.0) H 11/17/17 12:10 Band Neutrophils % 1.0 % 11/17/17 12:10 Lymphocytes % (Manual) 4.0 % (13.4-35.0) L 11/17/17 12:10 Reactive Lymphs % (Man) 0 % 11/17/17 12:10 Monocytes % (Manual) 3.0 % (0.0-7.3) 11/17/17 12:10 Eosinophils % (Manual) 0 % (0.0-4.3) 11/17/17 12:10 Basophils % (Manual) 0 % (0.0-1.8) 11/17/17 12:10 Metamyelocytes % 0 % 11/17/17 12:10 Myelocytes % 0 % 11/17/17 12:10 Promyelocytes % 0 % 11/17/17 12:10 Blast Cells % 0 % 11/17/17 12:10 Nucleated RBC % Not Reportable 11/17/17 12:10 Seg Neutrophils # 5.9 K/mm3 (1.8-7.7) 11/18/17 06:18 Seg Neutrophils # Man 5.8 K/mm3 (1.8-7.7) 11/17/17 12:10 Band Neutrophils # 0.1 K/mm3 11/17/17 12:10 Lymphocytes # (Manual) 0.3 K/mm3 (1.2-5.4) L 11/17/17 12:10 Abs React Lymphs (Man) 0.0 K/mm3 11/17/17 12:10 Monocytes # (Manual) 0.2 K/mm3 (0.0-0.8) 11/17/17 12:10 Eosinophils # (Manual) 0.0 K/mm3 (0.0-0.4) 11/17/17 12:10 Basophils # (Manual) 0.0 K/mm3 (0.0-0.1) 11/17/17 12:10 Metamyelocytes # 0.0 K/mm3 11/17/17 12:10 Myelocytes # 0.0 K/mm3 11/17/17 12:10 Promyelocytes # 0.0 K/mm3 11/17/17 12:10 Blast Cells # 0.0 K/mm3 11/17/17 12:10 WBC Morphology Not Reportable 11/17/17 12:10 Hypersegmented Neuts Not Reportable 11/17/17 12:10 Hyposegmented Neuts Not Reportable 11/17/17 12:10 Hypogranular Neuts Not Reportable 11/17/17 12:10 Smudge Cells Not Reportable 11/17/17 12:10 Toxic Granulation Not Reportable 11/17/17 12:10 Toxic Vacuolation Not Reportable 11/17/17 12:10 Dohle Bodies Not Reportable 11/17/17 12:10 Pelger-Huet Anomaly Not Reportable 11/17/17 12:10 Jackie Rods Not Reportable 11/17/17 12:10 Platelet Estimate Consistent w auto 11/17/17 12:10 Clumped Platelets Not Reportable 11/17/17 12:10 Plt Clumps, EDTA Not Reportable 11/17/17 12:10 Large Platelets Not Reportable 11/17/17 12:10 Giant Platelets Not Reportable 11/17/17 12:10 Platelet Satelliting Not Reportable 11/17/17 12:10 Plt Morphology Comment Not Reportable 11/17/17 12:10 RBC Morphology Not Reportable 11/17/17 12:10 Dimorphic RBCs Not Reportable 11/17/17 12:10 Polychromasia Few 11/17/17 12:10 Hypochromasia Not Reportable 11/17/17 12:10 Poikilocytosis Not Reportable 11/17/17 12:10 Anisocytosis Not Reportable 11/17/17 12:10 Microcytosis Not Reportable 11/17/17 12:10 Macrocytosis Not Reportable 11/17/17 12:10 Spherocytes Not Reportable 11/17/17 12:10 Pappenheimer Bodies Not Reportable 11/17/17 12:10 Sickle Cells Not Reportable 11/17/17 12:10 Target Cells Not Reportable 11/17/17 12:10 Tear Drop Cells Not Reportable 11/17/17 12:10 Ovalocytes Not Reportable 11/17/17 12:10 Helmet Cells Not Reportable 11/17/17 12:10 [place] Bodies Not Reportable 11/17/17 12:10 [place] Rings Not Reportable 11/17/17 12:10 [place] Cells Not Reportable 11/17/17 12:10 Bite Cells Not Reportable 11/17/17 12:10 Crenated Cell Not Reportable 11/17/17 12:10 Elliptocytes Not Reportable 11/17/17 12:10 Acanthocytes (Spur) Not Reportable 11/17/17 12:10 Rouleaux Not Reportable 11/17/17 12:10 Hemoglobin C Crystals Not Reportable 11/17/17 12:10 Schistocytes Not Reportable 11/17/17 12:10 Malaria parasites Not Reportable 11/17/17 12:10 Jose Bodies Not Reportable 11/17/17 12:10 Hem Pathologist Commnt No 11/17/17 12:10 D-Dimer 721.35 ng/mlDDU (0-234) H 11/17/17 02:33 POC ABG pH 7.350 (7.35-7.45) 11/18/17 10:24 POC ABG pCO2 78.2 (35-45) H 11/18/17 10:24 POC ABG pO2 118 (80-105) H 11/18/17 10:24 POC ABG HCO3 43.2 11/18/17 10:24 POC ABG Total CO2 46 11/18/17 10:24 POC ABG O2 Sat 98 11/18/17 10:24 POC ABG Base Excess 18 11/18/17 10:24 FiO2 50 % 11/18/17 10:24 Sodium 140 mmol/L (137-145) 11/20/17 13:23 Potassium 4.7 mmol/L (3.6-5.0) 11/20/17 13:23 Chloride 95.1 mmol/L (98-107) L 11/20/17 13:23 Carbon Dioxide 41 mmol/L (22-30) H* 11/20/17 13:23 Anion Gap 9 mmol/L 11/20/17 13:23 BUN 15 mg/dL (7-17) 11/20/17 13:23 Creatinine 0.6 mg/dL (0.7-1.2) L 11/20/17 13:23 Estimated GFR > 60 ml/min 11/20/17 13:23 BUN/Creatinine Ratio 25 % 11/20/17 13:23 Glucose 96 mg/dL (65-100) 11/20/17 13:23 POC Glucose 85 (70-105) 11/21/17 21:05 Calcium 8.7 mg/dL (8.4-10.2) 11/20/17 13:23 Troponin T < 0.010 ng/mL (0.00-0.029) 11/17/17 15:42 NT-Pro-B Natriuret Pep 3039 pg/mL (0-900) H 11/17/17 02:33 Triglycerides 40 mg/dL (2-149) 11/17/17 12:10 Cholesterol 103 mg/dL (50-199) 11/17/17 12:10 LDL Cholesterol Direct 62 mg/dL (50-130) 11/17/17 12:10 HDL Cholesterol 33 mg/dL (40-59) L 11/17/17 12:10 Cholesterol/HDL Ratio 3.12 % 11/17/17 12:10 Urine Color Yellow (Yellow) 11/17/17 03:34 Urine Turbidity Clear (Clear) 11/17/17 03:34 Urine pH 6.0 (5.0-7.0) 11/17/17 03:34 Ur Specific [place] 1.018 (1.003-1.030) 11/17/17 03:34 Urine Protein 100 mg/dl mg/dL (Negative) 11/17/17 03:34 Urine Glucose (UA) Neg mg/dL (Negative) 11/17/17 03:34 Urine Ketones Neg mg/dL (Negative) 11/17/17 03:34 Urine Blood Neg (Negative) 11/17/17 03:34 Urine Nitrite Neg (Negative) 11/17/17 03:34 Urine Bilirubin Neg (Negative) 11/17/17 03:34 Urine Urobilinogen 4.0 mg/dL (<2.0) 11/17/17 03:34 Ur Leukocyte Esterase Sm (Negative) 11/17/17 03:34 Urine WBC (Auto) 5.0 /HPF (0.0-6.0) 11/17/17 03:34 Urine RBC (Auto) 5.0 /HPF (0.0-6.0) 11/17/17 03:34 U Epithel Cells (Auto) 5.0 /HPF (0-13.0) 11/17/17 03:34 Urine Mucus Few /HPF 11/17/17 03:34
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
[2017-11-24] MEDS: DUONEB *Not for PRN Use IH SCH ×4 (03:01→22:32)
[2017-11-24] MEDS: TYLENOL PO PRN ×2 (05:41→12:20)
[2017-11-24] MEDS: COLACE PO SCH ×2 (10:32→22:15)
[2017-11-24] MEDS: LOVENOX SUB-Q SCH (10:32)
[2017-11-24] MEDS: ECOTRIN PO SCH (10:32)
[2017-11-24] MEDS: PULMICORT IH SCH ×2 (10:37→22:32)
[2017-11-24] MEDS: BROVANA NEBU IH SCH ×2 (10:37→22:32)
--- NOTE | 2017-11-24 13:26 | Progress Note ---
Assessment and Plan Acute hypercapnic rsepiratory failure Acute encephalopathy COPD AE Tobacco abuse disorder with nicotine dependence Pleuritic chest pain with elevated BNP Cor pulmonale Echocardiogram demonstrates evidence of cor pulmonale with dilated right heart chambers, moderate tricuspid regurgitation and moderate pulmonary hypertension. The left ventricle is normal in size, with left ventricular ejection fraction 45-50%. -Continue with NIPPV, prn -Serial ABGs -Nicotine withdrawal precautions - no evidence of PE on CTA -Bronchodilators-Steroids with accucheck and glycemic control -VTE prophylaxis -Smoking cessation counselling done at the bedside - Subjective Date of service: 11/24/17 Principal diagnosis: AECOPD Interval history: Patient is seen today for: Acute on Chronic Hypoxemic Hypercapnic Respiratory Failure; AECOPD Seen and examined at bedside; 24hour events reviewed; nursing and respiratory care staff consulted; no adverse overnight events reported to me; resting peacefully in bed; remains on supplemental oxygen; placed back on BIPAP earlier due to hypercapnia; alert now and denies acute chest pains Objective - Exam Narrative Exam: Constitutional: alert, appears uncomfortable Eyes: non-icteric ENT: oropharynx moist, oropharyngeal exudate pre Neck: supple, no lymphadenopathy, no JVD, other (no thyromegaly) Ascultation: Bilateral: diminished breath sounds, rhonchi Percussion: Bilateral: not dull Cardiovascular: regular rate and rhythm, other (no rubs or murmurs) Gastrointestinal: normoactive bowel sounds, soft, non-tender, non-distended, other (no palpable HSM) Integumentary: normal Extremities: no cyanosis, no edema, pink and warm, pulses normal, no ischemia or petechiae Neurologic: normal mental status, non-focal exam, pupils equal and round, motor strength normal and, other Psychiatric: mood appropriate, affect normal Vital Signs - 12hr 11/24/17 11/24/17 11/24/17 05:33 10:00 10:37 Temperature 98.1 F Pulse Rate 83 Pulse Rate [ 75 Anterior Throughout] Pulse Rate [ 73 Apical] Respiratory 18 17 Rate Respiratory 20 Rate [Anterior Throughout] Blood Pressure 114/73 O2 Sat by Pulse 87 97 Oximetry 11/24/17 11/24/17 11/24/17 10:40 10:46 12:20 Temperature Pulse Rate Pulse Rate [ 70 Anterior Throughout] Pulse Rate [ Apical] Respiratory 18 Rate Respiratory 20 Rate [Anterior Throughout] Blood Pressure O2 Sat by Pulse 99 Oximetry Constitutional: no acute distress, alert Eyes: non-icteric ENT: oropharynx moist, oropharyngeal exudate pre Neck: supple, no lymphadenopathy, no JVD, other (no thyromegaly) Ascultation: Bilateral: diminished breath sounds, rhonchi Percussion: Bilateral: not dull Cardiovascular: regular rate and rhythm, other (no rubs or murmurs) Gastrointestinal: normoactive bowel sounds, soft, non-tender, non-distended, other (no palpable HSM) Integumentary: normal Extremities: no cyanosis, no edema, pink and warm, pulses normal, no ischemia or petechiae Neurologic: normal mental status, non-focal exam, pupils equal and round, motor strength normal and, other Psychiatric: mood appropriate, affect normal CBC and BMP: 11/18/17 06:18 11/20/17 13:23 ABG, PT/INR, D-dimer: ABG POC ABG pH 7.350 (7.35-7.45) 11/18/17 10:24 POC ABG pCO2 78.2 (35-45) H 11/18/17 10:24 POC ABG pO2 118 (80-105) H 11/18/17 10:24 POC ABG HCO3 43.2 11/18/17 10:24 POC ABG Total CO2 46 11/18/17 10:24 POC ABG O2 Sat 98 11/18/17 10:24 PT/INR, D-dimer D-Dimer 721.35 ng/mlDDU (0-234) H 11/17/17 02:33 Abnormal lab findings: Abnormal Labs 11/17/17 11/17/17 11/17/17 01:37 01:37 02:33 Hct 43.7 H MCV RDW 15.3 H Lymph % (Auto) Porter % (Auto) 12.5 H Lymph # Porter # 0.9 H Seg Neutrophils % Seg Neuts % (Manual) Lymphocytes % (Manual) Lymphocytes # (Manual) D-Dimer 721.35 H POC ABG pH POC ABG pCO2 POC ABG pO2 Sodium Potassium Chloride 91.9 L Carbon Dioxide 36 H BUN 18 H Creatinine Glucose 118 H POC Glucose NT-Pro-B Natriuret Pep HDL Cholesterol 11/17/17 11/17/17 11/17/17 02:33 07:51 12:10 Hct 43.1 H MCV RDW Lymph % (Auto) Porter % (Auto) Lymph # Porter # Seg Neutrophils % Seg Neuts % (Manual) 92.0 H Lymphocytes % (Manual) 4.0 L Lymphocytes # (Manual) 0.3 L D-Dimer POC ABG pH 7.198 L POC ABG pCO2 96.0 H POC ABG pO2 46 L Sodium Potassium Chloride Carbon Dioxide BUN Creatinine Glucose POC Glucose NT-Pro-B Natriuret Pep 3039 H HDL Cholesterol 11/17/17 11/17/17 11/18/17 12:10 16:01 06:18 Hct MCV 98 H RDW 15.3 H Lymph % (Auto) 5.6 L Porter % (Auto) 8.6 H Lymph # 0.4 L Porter # Seg Neutrophils % 85.8 H Seg Neuts % (Manual) Lymphocytes % (Manual) Lymphocytes # (Manual) D-Dimer POC ABG pH POC ABG pCO2 70.1 H POC ABG pO2 125 H Sodium 133 L Potassium 5.6 H D Chloride 92.4 L Carbon Dioxide 32 H BUN 18 H Creatinine Glucose 114 H POC Glucose NT-Pro-B Natriuret Pep HDL Cholesterol 33 L 11/18/17 11/18/17 11/20/17 06:18 10:24 12:04 Hct MCV RDW Lymph % (Auto) Porter % (Auto) Lymph # Porter # Seg Neutrophils % Seg Neuts % (Manual) Lymphocytes % (Manual) Lymphocytes # (Manual) D-Dimer POC ABG pH POC ABG pCO2 78.2 H POC ABG pO2 118 H Sodium Potassium 5.2 H Chloride 93.6 L Carbon Dioxide 39 H D BUN 21 H Creatinine Glucose 111 H POC Glucose 132 H NT-Pro-B Natriuret Pep HDL Cholesterol 11/20/17 13:23 Hct MCV RDW Lymph % (Auto) Porter % (Auto) Lymph # Porter # Seg Neutrophils % Seg Neuts % (Manual) Lymphocytes % (Manual) Lymphocytes # (Manual) D-Dimer POC ABG pH POC ABG pCO2 POC ABG pO2 Sodium Potassium Chloride 95.1 L Carbon Dioxide 41 H* BUN Creatinine 0.6 L Glucose POC Glucose NT-Pro-B Natriuret Pep HDL Cholesterol
--- NOTE | 2017-11-24 15:12 | Progress Note ---
Subjective - Reason for Consult Consult date: 11/24/17 Reason for consult: follow up - Chief Complaint Chief complaint: "I'm ok." 52 year old AA female seen for psychiatric follow up. Her medical providers expressed concern about depression. She reports a history of depression and anxiety in 2005 but denies depression now. She states her main issue is finding housing. She is motivated to find resources for this problem. She states she is coping with her stressors. She reports minimal social support. She could be minimizing symptoms. She states she would not mind having mental health referrals. She denies suicidal ideation or homicidal ideation. No psychotic symptoms expressed. She has never been on medication for mental health. She is sleepy and says she is not feeling depressed or having any mental health concerns today. Mental Status Exam - Vital signs Last Vital Signs Temp 98.1 F 11/24/17 05:33 Pulse 70 11/24/17 10:46 Resp 18 11/24/17 12:20 BP 114/73 11/24/17 05:33 Pulse Ox 99 11/24/17 10:40 - Exam Orientation: time, place, person Affect: normal Mood: appropriate Thought content: other (no suicidal or homicidal ideation) Thought Process: Intact Perceptions: none Speech: normal rate and pattern Concentration: focused Motor activity: normal Level of consciousness: alert Memory: Intact Sleep Symptoms: None Interaction: cooperative Assessment and Plan Impression: history of major depressive disorder and possibly PTSD diagnoses No concerns with self harm or harm to others. No psychosis. Consider she could be minimizing any concerns with depression. medical conditions of COPD and other respiratory complications managed by the medical team Recommendations: relocation services specialist should be involved to provide housing resources. She is recommended to seek further evaluation for mental health at the [facility]. No medications for depression indicated at this time.
--- NOTE | 2017-11-24 20:05 | Progress Note ---
Assessment and Plan Assessment and plan: --Depression; feels better today, evaluation by psych No medications commended advised to follow [facility] upon discharge --Acute hypercapnic respiratory failure; Continue NIPPV, nebulizers, off steroids, pulmonary following Evaluation for home oxygen at discharge --Acute exacerbation of COPD; Continue nebulizers, oxygen and steroids --Cor pulmonale; but echocardiogram Moderate pulmonary hypertension, supportive care --Moderate pulmonary hypertension; continue current management Pulmonary following --Mild systolic congestive heart failure, ejection fraction 40-45% Well compensated, continue supportive care --Metabolic encephalopathy; resolved back to baseline --Ongoing tobacco use; smoking cessation counseling done, advised nicotine patch as needed --DVT prophylaxis; Lovenox Physical therapy occupational therapy as tolerated Disposition; possible discharge home tomorrow with home oxygen as needed Plan of care reviewed with the patient and her son at the bedside Answered all the questions History Interval history: Patient feels better today, we have full responding appropriately No new complaints, room air sats ,resting was less than 87%. No new events reported by the nursing staff Denies chest pain or shortness of breath Alert awake and Oriented 3 not in acute distress Vital signs reviewed Hospitalist Physical - Constitutional Vitals: Temp Pulse Resp BP Pulse Ox 98 F 75 20 117/65 97 11/24/17 12:45 11/24/17 15:35 11/24/17 15:35 11/24/17 12:45 11/24/17 12:45 General appearance: Present: no acute distress, well-nourished - EENT Eyes: Present: PERRL, EOM intact - Neck Neck: Present: supple, normal ROM - Respiratory Respiratory effort: normal Respiratory: bilateral: diminished, rales, negative: rhonchi, wheezing - Cardiovascular Rhythm: regular Heart Sounds: Present: S1 & S2 - Extremities Extremities: no ischemia, No edema - Abdominal General gastrointestinal: soft, non-tender, non-distended, normal bowel sounds - Integumentary Integumentary: Present: clear, warm - Psychiatric Psychiatric: appropriate mood/affect, cooperative - Neurologic Neurologic: CNII-XII intact, moves all extremities Results - Labs CBC & Chem 7: 11/18/17 06:18 11/20/17 13:23 Labs: Laboratory Last Values WBC 6.8 K/mm3 (4.5-11.0) 11/18/17 06:18 RBC 3.94 M/mm3 (3.65-5.03) 11/18/17 06:18 Hgb 12.3 gm/dl (10.1-14.3) 11/18/17 06:18 Hct 38.4 % (30.3-42.9) 11/18/17 06:18 MCV 98 fl (79-97) H 11/18/17 06:18 MCH 31 pg (28-32) 11/18/17 06:18 MCHC 32 % (30-34) 11/18/17 06:18 RDW 15.3 % (13.2-15.2) H 11/18/17 06:18 Plt Count 265 K/mm3 (140-440) 11/18/17 06:18 Lymph % (Auto) 5.6 % (13.4-35.0) L 11/18/17 06:18 Baldwin % (Auto) 8.6 % (0.0-7.3) H 11/18/17 06:18 Eos % (Auto) 0.0 % (0.0-4.3) 11/18/17 06:18 Baso % (Auto) 0.0 % (0.0-1.8) 11/18/17 06:18 Lymph # 0.4 K/mm3 (1.2-5.4) L 11/18/17 06:18 Baldwin # 0.6 K/mm3 (0.0-0.8) 11/18/17 06:18 Eos # 0.0 K/mm3 (0.0-0.4) 11/18/17 06:18 Baso # 0.0 K/mm3 (0.0-0.1) 11/18/17 06:18 Add Manual Diff Complete 11/17/17 12:10 Total Counted 100 11/17/17 12:10 Seg Neutrophils % 85.8 % (40.0-70.0) H 11/18/17 06:18 Seg Neuts % (Manual) 92.0 % (40.0-70.0) H 11/17/17 12:10 Band Neutrophils % 1.0 % 11/17/17 12:10 Lymphocytes % (Manual) 4.0 % (13.4-35.0) L 11/17/17 12:10 Reactive Lymphs % (Man) 0 % 11/17/17 12:10 Monocytes % (Manual) 3.0 % (0.0-7.3) 11/17/17 12:10 Eosinophils % (Manual) 0 % (0.0-4.3) 11/17/17 12:10 Basophils % (Manual) 0 % (0.0-1.8) 11/17/17 12:10 Metamyelocytes % 0 % 11/17/17 12:10 Myelocytes % 0 % 11/17/17 12:10 Promyelocytes % 0 % 11/17/17 12:10 Blast Cells % 0 % 11/17/17 12:10 Nucleated RBC % Not Reportable 11/17/17 12:10 Seg Neutrophils # 5.9 K/mm3 (1.8-7.7) 11/18/17 06:18 Seg Neutrophils # Man 5.8 K/mm3 (1.8-7.7) 11/17/17 12:10 Band Neutrophils # 0.1 K/mm3 11/17/17 12:10 Lymphocytes # (Manual) 0.3 K/mm3 (1.2-5.4) L 11/17/17 12:10 Abs React Lymphs (Man) 0.0 K/mm3 11/17/17 12:10 Monocytes # (Manual) 0.2 K/mm3 (0.0-0.8) 11/17/17 12:10 Eosinophils # (Manual) 0.0 K/mm3 (0.0-0.4) 11/17/17 12:10 Basophils # (Manual) 0.0 K/mm3 (0.0-0.1) 11/17/17 12:10 Metamyelocytes # 0.0 K/mm3 11/17/17 12:10 Myelocytes # 0.0 K/mm3 11/17/17 12:10 Promyelocytes # 0.0 K/mm3 11/17/17 12:10 Blast Cells # 0.0 K/mm3 11/17/17 12:10 WBC Morphology Not Reportable 11/17/17 12:10 Hypersegmented Neuts Not Reportable 11/17/17 12:10 Hyposegmented Neuts Not Reportable 11/17/17 12:10 Hypogranular Neuts Not Reportable 11/17/17 12:10 Smudge Cells Not Reportable 11/17/17 12:10 Toxic Granulation Not Reportable 11/17/17 12:10 Toxic Vacuolation Not Reportable 11/17/17 12:10 Dohle Bodies Not Reportable 11/17/17 12:10 Pelger-Huet Anomaly Not Reportable 11/17/17 12:10 Jackie Rods Not Reportable 11/17/17 12:10 Platelet Estimate Consistent w auto 11/17/17 12:10 Clumped Platelets Not Reportable 11/17/17 12:10 Plt Clumps, EDTA Not Reportable 11/17/17 12:10 Large Platelets Not Reportable 11/17/17 12:10 Giant Platelets Not Reportable 11/17/17 12:10 Platelet Satelliting Not Reportable 11/17/17 12:10 Plt Morphology Comment Not Reportable 11/17/17 12:10 RBC Morphology Not Reportable 11/17/17 12:10 Dimorphic RBCs Not Reportable 11/17/17 12:10 Polychromasia Few 11/17/17 12:10 Hypochromasia Not Reportable 11/17/17 12:10 Poikilocytosis Not Reportable 11/17/17 12:10 Anisocytosis Not Reportable 11/17/17 12:10 Microcytosis Not Reportable 11/17/17 12:10 Macrocytosis Not Reportable 11/17/17 12:10 Spherocytes Not Reportable 11/17/17 12:10 Pappenheimer Bodies Not Reportable 11/17/17 12:10 Sickle Cells Not Reportable 11/17/17 12:10 Target Cells Not Reportable 11/17/17 12:10 Tear Drop Cells Not Reportable 11/17/17 12:10 Ovalocytes Not Reportable 11/17/17 12:10 Helmet Cells Not Reportable 11/17/17 12:10 [place] Bodies Not Reportable 11/17/17 12:10 [place] Rings Not Reportable 11/17/17 12:10 [place] Cells Not Reportable 11/17/17 12:10 Bite Cells Not Reportable 11/17/17 12:10 Crenated Cell Not Reportable 11/17/17 12:10 Elliptocytes Not Reportable 11/17/17 12:10 Acanthocytes (Spur) Not Reportable 11/17/17 12:10 Rouleaux Not Reportable 11/17/17 12:10 Hemoglobin C Crystals Not Reportable 11/17/17 12:10 Schistocytes Not Reportable 11/17/17 12:10 Malaria parasites Not Reportable 11/17/17 12:10 Jose Bodies Not Reportable 11/17/17 12:10 Hem Pathologist Commnt No 11/17/17 12:10 D-Dimer 721.35 ng/mlDDU (0-234) H 11/17/17 02:33 POC ABG pH 7.350 (7.35-7.45) 11/18/17 10:24 POC ABG pCO2 78.2 (35-45) H 11/18/17 10:24 POC ABG pO2 118 (80-105) H 11/18/17 10:24 POC ABG HCO3 43.2 11/18/17 10:24 POC ABG Total CO2 46 11/18/17 10:24 POC ABG O2 Sat 98 11/18/17 10:24 POC ABG Base Excess 18 11/18/17 10:24 FiO2 50 % 11/18/17 10:24 Sodium 140 mmol/L (137-145) 11/20/17 13:23 Potassium 4.7 mmol/L (3.6-5.0) 11/20/17 13:23 Chloride 95.1 mmol/L (98-107) L 11/20/17 13:23 Carbon Dioxide 41 mmol/L (22-30) H* 11/20/17 13:23 Anion Gap 9 mmol/L 11/20/17 13:23 BUN 15 mg/dL (7-17) 11/20/17 13:23 Creatinine 0.6 mg/dL (0.7-1.2) L 11/20/17 13:23 Estimated GFR > 60 ml/min 11/20/17 13:23 BUN/Creatinine Ratio 25 % 11/20/17 13:23 Glucose 96 mg/dL (65-100) 11/20/17 13:23 POC Glucose 85 (70-105) 11/21/17 21:05 Calcium 8.7 mg/dL (8.4-10.2) 11/20/17 13:23 Troponin T < 0.010 ng/mL (0.00-0.029) 11/17/17 15:42 NT-Pro-B Natriuret Pep 3039 pg/mL (0-900) H 11/17/17 02:33 Triglycerides 40 mg/dL (2-149) 11/17/17 12:10 Cholesterol 103 mg/dL (50-199) 11/17/17 12:10 LDL Cholesterol Direct 62 mg/dL (50-130) 11/17/17 12:10 HDL Cholesterol 33 mg/dL (40-59) L 11/17/17 12:10 Cholesterol/HDL Ratio 3.12 % 11/17/17 12:10 Urine Color Yellow (Yellow) 11/17/17 03:34 Urine Turbidity Clear (Clear) 11/17/17 03:34 Urine pH 6.0 (5.0-7.0) 11/17/17 03:34 Ur Specific Emmons 1.018 (1.003-1.030) 11/17/17 03:34 Urine Protein 100 mg/dl mg/dL (Negative) 11/17/17 03:34 Urine Glucose (UA) Neg mg/dL (Negative) 11/17/17 03:34 Urine Ketones Neg mg/dL (Negative) 11/17/17 03:34 Urine Blood Neg (Negative) 11/17/17 03:34 Urine Nitrite Neg (Negative) 11/17/17 03:34 Urine Bilirubin Neg (Negative) 11/17/17 03:34 Urine Urobilinogen 4.0 mg/dL (<2.0) 11/17/17 03:34 Ur Leukocyte Esterase Sm (Negative) 11/17/17 03:34 Urine WBC (Auto) 5.0 /HPF (0.0-6.0) 11/17/17 03:34 Urine RBC (Auto) 5.0 /HPF (0.0-6.0) 11/17/17 03:34 U Epithel Cells (Auto) 5.0 /HPF (0-13.0) 11/17/17 03:34 Urine Mucus Few /HPF 11/17/17 03:34
[2017-11-25] MEDS: DUONEB *Not for PRN Use IH SCH ×4 (03:51→23:30)
[2017-11-25] MEDS: TYLENOL PO PRN (04:46)
[2017-11-25 07:47] LABS: BUN/Creatinine Ratio 20; Blood Urea Nitrogen 10 mg/dL (7-17); Calcium 8.7 mg/dL (8.4-10.2); Hemolysis Index 2
[2017-11-25] MEDS: PULMICORT IH SCH ×2 (08:35→22:10)
[2017-11-25] MEDS: BROVANA NEBU IH SCH ×2 (08:35→22:10)
--- NOTE | 2017-11-25 09:52 | Progress Note ---
Subjective - Reason for Consult Consult date: 11/25/17 Reason for consult: Psychiatry Follow-up - Chief Complaint Chief complaint: "Good morning" 52 year old AA female seen for psychiatric follow up. Her medical providers expressed concern about depression. Today the patient is calm and cooperative during the assessment. She stated that she has concerns about her current residence. She stated that she has stairs and this will be a problem. She stated that she become SOB very easily when she uses the stairs at her home. Also, she stated that she is unemployed and do not have any income at this time. She feels if "things" get better for her, her depression would "decrease. " She rated her depression 4/10, with 10 being the worse. She stated that she would like to see a therapy once discharge, because she would like to have an opportunity to speak with a professional. She stated that she want to take something for sleep. Mental Status Exam - Vital signs Last Vital Signs Temp 97.6 F 11/25/17 05:10 Pulse 72 11/25/17 08:30 Resp 19 11/25/17 08:30 BP 103/56 11/25/17 05:10 Pulse Ox 98 11/25/17 08:30 - Exam Narrative exam: MSE: Appearance: calm, cooperative Behavior: regular eye contact Speech: regular rate and tone Mood: "okay" Affect: congruent to mood Thought Process: logical Thought Content: denies SI/HI's and AVH's Motor Activity: sitting up in bed Cognition: A/O x3 Insight: appropriate Judgment: appropriate Assessment and Plan Impression: Hx of of major depressive disorder and possibly PTSD. Today the patient is calm and cooperative during the assessment. Medical: COPD Recommendations/Plan: Start Trazodone 50 mg PO HS PRN for sleep consolidation. Discussed possible suicidality/medication induced mir with patient reference Trazodone. Informed Government Instructor of patient's concerns (living arrangement and unemployed). The patient given outpatient psy services for [facility].
[2017-11-25] MEDS: COLACE PO SCH ×2 (10:08→22:17)
[2017-11-25] MEDS: LOVENOX SUB-Q SCH (10:08)
[2017-11-25] MEDS: ECOTRIN PO SCH (10:08)
--- NOTE | 2017-11-25 11:23 | Progress Note ---
Subjective Date of service: 11/25/17 Principal diagnosis: AECOPD Interval history: Patient seen today for: Seen and examined at bedside; 24 hour events reviewed; nursing and respiratory care staff consulted; no adverse overnight events reported to me; Objective Vital Signs - 12hr 11/25/17 11/25/17 11/25/17 00:53 04:46 05:10 Temperature 97.6 F 97.6 F Pulse Rate 80 72 Pulse Rate [ Apical] Pulse Rate [ Posterior Bilateral Bases ] Respiratory 20 20 18 Rate Respiratory Rate [Posterior Bilateral Bases] Blood Pressure 108/68 103/56 [Left] O2 Sat by Pulse 97 94 Oximetry 11/25/17 11/25/17 11/25/17 05:46 08:30 08:35 Temperature Pulse Rate Pulse Rate [ 72 Apical] Pulse Rate [ 76 Posterior Bilateral Bases ] Respiratory 18 19 Rate Respiratory 16 Rate [Posterior Bilateral Bases] Blood Pressure [Left] O2 Sat by Pulse 98 Oximetry 11/25/17 11/25/17 11/25/17 08:45 09:53 10:00 Temperature 98.1 F Pulse Rate 78 Pulse Rate [ Apical] Pulse Rate [ 84 Posterior Bilateral Bases ] Respiratory 20 Rate Respiratory 16 Rate [Posterior Bilateral Bases] Blood Pressure 103/59 [Left] O2 Sat by Pulse 97 97 Oximetry Constitutional: no acute distress, alert Eyes: non-icteric ENT: oropharynx moist, oropharyngeal exudate pre Neck: supple, no lymphadenopathy, no JVD, other (no thyromegaly) Ascultation: Bilateral: diminished breath sounds, rhonchi Percussion: Bilateral: not dull Cardiovascular: regular rate and rhythm, other (no rubs or murmurs) Gastrointestinal: normoactive bowel sounds, soft, non-tender, non-distended, other (no palpable HSM) Integumentary: normal Extremities: no cyanosis, no edema, pink and warm, pulses normal, no ischemia or petechiae Neurologic: normal mental status, non-focal exam, pupils equal and round, motor strength normal and, other Psychiatric: mood appropriate, affect normal CBC and BMP: 11/18/17 06:18 11/25/17 06:59 ABG, PT/INR, D-dimer: ABG POC ABG pH 7.350 (7.35-7.45) 11/18/17 10:24 POC ABG pCO2 78.2 (35-45) H 11/18/17 10:24 POC ABG pO2 118 (80-105) H 11/18/17 10:24 POC ABG HCO3 43.2 11/18/17 10:24 POC ABG Total CO2 46 11/18/17 10:24 POC ABG O2 Sat 98 11/18/17 10:24 PT/INR, D-dimer D-Dimer 721.35 ng/mlDDU (0-234) H 11/17/17 02:33 Abnormal lab findings: Abnormal Labs 11/17/17 11/17/17 11/17/17 01:37 01:37 02:33 Hct 43.7 H MCV RDW 15.3 H Lymph % (Auto) [place] % (Auto) 12.5 H Lymph # [place] # 0.9 H Seg Neutrophils % Seg Neuts % (Manual) Lymphocytes % (Manual) Lymphocytes # (Manual) D-Dimer 721.35 H POC ABG pH POC ABG pCO2 POC ABG pO2 Sodium Potassium Chloride 91.9 L Carbon Dioxide 36 H BUN 18 H Creatinine Glucose 118 H POC Glucose NT-Pro-B Natriuret Pep HDL Cholesterol 11/17/17 11/17/17 11/17/17 02:33 07:51 12:10 Hct 43.1 H MCV RDW Lymph % (Auto) [place] % (Auto) Lymph # [place] # Seg Neutrophils % Seg Neuts % (Manual) 92.0 H Lymphocytes % (Manual) 4.0 L Lymphocytes # (Manual) 0.3 L D-Dimer POC ABG pH 7.198 L POC ABG pCO2 96.0 H POC ABG pO2 46 L Sodium Potassium Chloride Carbon Dioxide BUN Creatinine Glucose POC Glucose NT-Pro-B Natriuret Pep 3039 H HDL Cholesterol 11/17/17 11/17/17 11/18/17 12:10 16:01 06:18 Hct MCV 98 H RDW 15.3 H Lymph % (Auto) 5.6 L [place] % (Auto) 8.6 H Lymph # 0.4 L [place] # Seg Neutrophils % 85.8 H Seg Neuts % (Manual) Lymphocytes % (Manual) Lymphocytes # (Manual) D-Dimer POC ABG pH POC ABG pCO2 70.1 H POC ABG pO2 125 H Sodium 133 L Potassium 5.6 H D Chloride 92.4 L Carbon Dioxide 32 H BUN 18 H Creatinine Glucose 114 H POC Glucose NT-Pro-B Natriuret Pep HDL Cholesterol 33 L 11/18/17 11/18/17 11/20/17 06:18 10:24 12:04 Hct MCV RDW Lymph % (Auto) [place] % (Auto) Lymph # [place] # Seg Neutrophils % Seg Neuts % (Manual) Lymphocytes % (Manual) Lymphocytes # (Manual) D-Dimer POC ABG pH POC ABG pCO2 78.2 H POC ABG pO2 118 H Sodium Potassium 5.2 H Chloride 93.6 L Carbon Dioxide 39 H D BUN 21 H Creatinine Glucose 111 H POC Glucose 132 H NT-Pro-B Natriuret Pep HDL Cholesterol 11/20/17 11/25/17 13:23 06:59 Hct MCV RDW Lymph % (Auto) [place] % (Auto) Lymph # [place] # Seg Neutrophils % Seg Neuts % (Manual) Lymphocytes % (Manual) Lymphocytes # (Manual) D-Dimer POC ABG pH POC ABG pCO2 POC ABG pO2 Sodium Potassium Chloride 95.1 L Carbon Dioxide 41 H* 39 H BUN Creatinine 0.6 L 0.5 L Glucose 124 H POC Glucose NT-Pro-B Natriuret Pep HDL Cholesterol
--- NOTE | 2017-11-25 14:40 | Progress Note ---
Assessment and Plan Assessment and plan: --Acute hypercapnic respiratory failure; Continue NIPPV, nebulizers, off steroids, home O2 discharge pulmonary following --Acute exacerbation of COPD; Continue nebulizers, oxygen and steroids --Cor pulmonale; on echocardiogram Moderate pulmonary hypertension, supportive care --Moderate pulmonary hypertension; continue current management Pulmonary following --Mild systolic congestive heart failure, ejection fraction 40-45% Well compensated, continue supportive care --Metabolic encephalopathy; resolved back to baseline --Ongoing tobacco use; smoking cessation counseling done, advised nicotine patch as needed --Depression; feels better today, evaluation by psych to follow [facility] upon discharge advised Trazodone 50 mg by mouth daily at bedtime when necessary --DVT prophylaxis; Lovenox Physical therapy occupational therapy as tolerated Disposition;discharge home today or tomorrow when oxygen is set up Plan of care reviewed with the patient and her nurse Answered all the questions Evaluation for home oxygen : resting pulse ox = 87%, on room air ambulatory pulse ox = 84-86% on room air. sr. media manager will be notified. patient needs home oxygen Discussed with case management No payor Source, trying indigent resources Patient is medically stable for discharge, pending setting up home oxygen . History Interval history: patient seen and evaluated medical records reviewed No new events reported by the nursing staff ambulated with oxygen Alert awake oriented 3 not in acute distress Vital signs reviewed Hospitalist Physical - Constitutional Vitals: Temp Pulse Resp BP Pulse Ox 98.3 F 71 18 116/70 97 11/25/17 13:18 11/25/17 13:18 11/25/17 13:18 11/25/17 13:18 11/25/17 13:18 General appearance: Present: no acute distress, well-nourished - EENT Eyes: Present: PERRL, EOM intact - Neck Neck: Present: supple, normal ROM - Respiratory Respiratory effort: normal Respiratory: bilateral: diminished, wheezing (scanty), negative: rales, rhonchi - Cardiovascular Rhythm: regular Heart Sounds: Present: S1 & S2 - Extremities Extremities: no ischemia, No edema - Abdominal General gastrointestinal: soft, non-tender, non-distended, normal bowel sounds - Integumentary Integumentary: Present: clear, warm - Psychiatric Psychiatric: appropriate mood/affect, cooperative - Neurologic Neurologic: CNII-XII intact, moves all extremities Results - Labs CBC & Chem 7: 11/18/17 06:18 02 06:59 Labs: Laboratory Last Values WBC 6.8 K/mm3 (4.5-11.0) 11/18/17 06:18 RBC 3.94 M/mm3 (3.65-5.03) 11/18/17 06:18 Hgb 12.3 gm/dl (10.1-14.3) 11/18/17 06:18 Hct 38.4 % (30.3-42.9) 11/18/17 06:18 MCV 98 fl (79-97) H 11/18/17 06:18 MCH 31 pg (28-32) 11/18/17 06:18 MCHC 32 % (30-34) 11/18/17 06:18 RDW 15.3 % (13.2-15.2) H 11/18/17 06:18 Plt Count 265 K/mm3 (140-440) 11/18/17 06:18 Lymph % (Auto) 5.6 % (13.4-35.0) L 11/18/17 06:18 [place] % (Auto) 8.6 % (0.0-7.3) H 11/18/17 06:18 Eos % (Auto) 0.0 % (0.0-4.3) 11/18/17 06:18 Baso % (Auto) 0.0 % (0.0-1.8) 11/18/17 06:18 Lymph # 0.4 K/mm3 (1.2-5.4) L 11/18/17 06:18 [place] # 0.6 K/mm3 (0.0-0.8) 11/18/17 06:18 Eos # 0.0 K/mm3 (0.0-0.4) 11/18/17 06:18 Baso # 0.0 K/mm3 (0.0-0.1) 11/18/17 06:18 Add Manual Diff Complete 11/17/17 12:10 Total Counted 100 11/17/17 12:10 Seg Neutrophils % 85.8 % (40.0-70.0) H 11/18/17 06:18 Seg Neuts % (Manual) 92.0 % (40.0-70.0) H 11/17/17 12:10 Band Neutrophils % 1.0 % 11/17/17 12:10 Lymphocytes % (Manual) 4.0 % (13.4-35.0) L 11/17/17 12:10 Reactive Lymphs % (Man) 0 % 11/17/17 12:10 Monocytes % (Manual) 3.0 % (0.0-7.3) 11/17/17 12:10 Eosinophils % (Manual) 0 % (0.0-4.3) 11/17/17 12:10 Basophils % (Manual) 0 % (0.0-1.8) 11/17/17 12:10 Metamyelocytes % 0 % 11/17/17 12:10 Myelocytes % 0 % 11/17/17 12:10 Promyelocytes % 0 % 11/17/17 12:10 Blast Cells % 0 % 11/17/17 12:10 Nucleated RBC % Not Reportable 11/17/17 12:10 Seg Neutrophils # 5.9 K/mm3 (1.8-7.7) 11/18/17 06:18 Seg Neutrophils # Man 5.8 K/mm3 (1.8-7.7) 11/17/17 12:10 Band Neutrophils # 0.1 K/mm3 11/17/17 12:10 Lymphocytes # (Manual) 0.3 K/mm3 (1.2-5.4) L 11/17/17 12:10 Abs React Lymphs (Man) 0.0 K/mm3 11/17/17 12:10 Monocytes # (Manual) 0.2 K/mm3 (0.0-0.8) 11/17/17 12:10 Eosinophils # (Manual) 0.0 K/mm3 (0.0-0.4) 11/17/17 12:10 Basophils # (Manual) 0.0 K/mm3 (0.0-0.1) 11/17/17 12:10 Metamyelocytes # 0.0 K/mm3 11/17/17 12:10 Myelocytes # 0.0 K/mm3 11/17/17 12:10 Promyelocytes # 0.0 K/mm3 11/17/17 12:10 Blast Cells # 0.0 K/mm3 11/17/17 12:10 WBC Morphology Not Reportable 11/17/17 12:10 Hypersegmented Neuts Not Reportable 11/17/17 12:10 Hyposegmented Neuts Not Reportable 11/17/17 12:10 Hypogranular Neuts Not Reportable 11/17/17 12:10 Smudge Cells Not Reportable 11/17/17 12:10 Toxic Granulation Not Reportable 11/17/17 12:10 Toxic Vacuolation Not Reportable 11/17/17 12:10 Dohle Bodies Not Reportable 11/17/17 12:10 Pel[place]-Huet Anomaly Not Reportable 11/17/17 12:10 Jackie Rods Not Reportable 11/17/17 12:10 Platelet Estimate Consistent w auto 11/17/17 12:10 Clumped Platelets Not Reportable 11/17/17 12:10 Plt Clumps, EDTA Not Reportable 11/17/17 12:10 Large Platelets Not Reportable 11/17/17 12:10 Giant Platelets Not Reportable 11/17/17 12:10 Platelet Satelliting Not Reportable 11/17/17 12:10 Plt Morphology Comment Not Reportable 11/17/17 12:10 RBC Morphology Not Reportable 11/17/17 12:10 Dimorphic RBCs Not Reportable 11/17/17 12:10 Polychromasia Few 11/17/17 12:10 Hypochromasia Not Reportable 11/17/17 12:10 Poikilocytosis Not Reportable 11/17/17 12:10 Anisocytosis Not Reportable 11/17/17 12:10 Microcytosis Not Reportable 11/17/17 12:10 Macrocytosis Not Reportable 11/17/17 12:10 Spherocytes Not Reportable 11/17/17 12:10 Pappenheimer Bodies Not Reportable 11/17/17 12:10 Sickle Cells Not Reportable 11/17/17 12:10 Target Cells Not Reportable 11/17/17 12:10 Tear Drop Cells Not Reportable 11/17/17 12:10 Ovalocytes Not Reportable 11/17/17 12:10 Helmet Cells Not Reportable 11/17/17 12:10 [place] Bodies Not Reportable 11/17/17 12:10 [place] Rings Not Reportable 11/17/17 12:10 [place] Cells Not Reportable 11/17/17 12:10 Bite Cells Not Reportable 11/17/17 12:10 Crenated Cell Not Reportable 11/17/17 12:10 Elliptocytes Not Reportable 11/17/17 12:10 Acanthocytes (Spur) Not Reportable 11/17/17 12:10 Rouleaux Not Reportable 11/17/17 12:10 Hemoglobin C Crystals Not Reportable 11/17/17 12:10 Schistocytes Not Reportable 11/17/17 12:10 Malaria parasites Not Reportable 11/17/17 12:10 Jose Bodies Not Reportable 11/17/17 12:10 Hem Pathologist Commnt No 11/17/17 12:10 D-Dimer 721.35 ng/mlDDU (0-234) H 11/17/17 02:33 POC ABG pH 7.350 (7.35-7.45) 11/18/17 10:24 POC ABG pCO2 78.2 (35-45) H 11/18/17 10:24 POC ABG pO2 118 (80-105) H 11/18/17 10:24 POC ABG HCO3 43.2 11/18/17 10:24 POC ABG Total CO2 46 11/18/17 10:24 POC ABG O2 Sat 98 11/18/17 10:24 POC ABG Base Excess 18 11/18/17 10:24 FiO2 50 % 11/18/17 10:24 Sodium 140 mmol/L (137-145) 11/25/17 06:59 Potassium 4.1 mmol/L (3.6-5.0) 11/25/17 06:59 Chloride 98.2 mmol/L (98-107) 11/25/17 06:59 Carbon Dioxide 39 mmol/L (22-30) H 11/25/17 06:59 Anion Gap 7 mmol/L 11/25/17 06:59 BUN 10 mg/dL (7-17) 11/25/17 06:59 Creatinine 0.5 mg/dL (0.7-1.2) L 11/25/17 06:59 Estimated GFR > 60 ml/min 11/25/17 06:59 BUN/Creatinine Ratio 20 % 11/25/17 06:59 Glucose 124 mg/dL (65-100) H 11/25/17 06:59 POC Glucose 85 (70-105) 11/21/17 21:05 Calcium 8.7 mg/dL (8.4-10.2) 11/25/17 06:59 Troponin T < 0.010 ng/mL (0.00-0.029) 11/17/17 15:42 NT-Pro-B Natriuret Pep 3039 pg/mL (0-900) H 11/17/17 02:33 Triglycerides 40 mg/dL (2-149) 11/17/17 12:10 Cholesterol 103 mg/dL (50-199) 11/17/17 12:10 LDL Cholesterol Direct 62 mg/dL (50-130) 11/17/17 12:10 HDL Cholesterol 33 mg/dL (40-59) L 11/17/17 12:10 Cholesterol/HDL Ratio 3.12 % 11/17/17 12:10 Urine Color Yellow (Yellow) 11/17/17 03:34 Urine Turbidity Clear (Clear) 11/17/17 03:34 Urine pH 6.0 (5.0-7.0) 11/17/17 03:34 Ur Specific [place] 1.018 (1.003-1.030) 11/17/17 03:34 Urine Protein 100 mg/dl mg/dL (Negative) 11/17/17 03:34 Urine Glucose (UA) Neg mg/dL (Negative) 11/17/17 03:34 Urine Ketones Neg mg/dL (Negative) 11/17/17 03:34 Urine Blood Neg (Negative) 11/17/17 03:34 Urine Nitrite Neg (Negative) 11/17/17 03:34 Urine Bilirubin Neg (Negative) 11/17/17 03:34 Urine Urobilinogen 4.0 mg/dL (<2.0) 11/17/17 03:34 Ur Leukocyte Esterase Sm (Negative) 11/17/17 03:34 Urine WBC (Auto) 5.0 /HPF (0.0-6.0) 11/17/17 03:34 Urine RBC (Auto) 5.0 /HPF (0.0-6.0) 11/17/17 03:34 U Epithel Cells (Auto) 5.0 /HPF (0-13.0) 11/17/17 03:34 Urine Mucus Few /HPF 11/17/17 03:34
[2017-11-25] MEDS ORDERED: DESYREL PO PRN (22:00)
[2017-11-26] MEDS: DUONEB *Not for PRN Use IH SCH ×3 (03:41→16:04)
[2017-11-26] MEDS: ECOTRIN PO SCH (09:45)
[2017-11-26] MEDS: LOVENOX SUB-Q SCH (09:45)
[2017-11-26] MEDS: COLACE PO SCH (09:45)
[2017-11-26] MEDS: PULMICORT IH SCH (11:30)
[2017-11-26] MEDS: BROVANA NEBU IH SCH (11:30)
[2017-11-26 13:13] VITALS: BP 102/86
--- NOTE | 2017-11-26 14:08 | Progress Note ---
Subjective - Reason for Consult Consult date: 11/26/17 Reason for consult: Psychiatry Follow-up - Chief Complaint Chief complaint: "I didn't like I wanted too" 52 year old AA female seen for psychiatric follow up. Her medical providers expressed concern about depression. Today the patient is calm and cooperative during the assessment. She stated that she didn't sleep like she wanted last night. She stated having a lot on her mind yesterday. The patient took Trazodone last night for sleep. She denies SI/HI's and AVH's. Mental Status Exam - Vital signs Last Vital Signs Temp 97.9 F 11/26/17 13:11 Pulse 89 11/26/17 13:11 Resp 18 11/26/17 13:11 BP 102/86 11/26/17 13:11 Pulse Ox 97 11/26/17 13:11 - Exam Narrative exam: MSE: Appearance: calm, cooperative Behavior: regular eye contact Speech: regular rate and tone Mood: "okay" Affect: congruent to mood Thought Process: logical Thought Content: denies SI/HI's and AVH's Motor Activity: sitting up in bed Cognition: A/O x3 Insight: appropriate Judgment: appropriate Assessment and Plan Impression: Hx of of major depressive disorder and possibly PTSD. Today the patient is calm and cooperative during the assessment. Medical: COPD Recommendations/Plan: Continue Trazodone 50 mg PO HS PRN for sleep consolidation. Discussed possible suicidality/medication induced mir with patient reference Trazodone. Informed Title I Assistant of patient's concerns ( living arrangement and unemployed). The patient given outpatient psy services for [facility]. Assess the patient's sleep in 24 hours, may need to increase the Trazodone.
--- NOTE | 2017-11-26 15:58 | Progress Note ---
Assessment and Plan Assessment and plan: --Acute hypercapnic respiratory failure; requiring BiPAP Patient is on 2 L of nasal cannula oxygen saturating well, needs home oxygen nebulizers, off steroids, home O2 discharge pulmonary following --Acute exacerbation of COPD; Continue nebulizers, oxygen and steroids --Cor pulmonale; on echocardiogram Moderate pulmonary hypertension, supportive care --Moderate pulmonary hypertension; continue current management Pulmonary following --Mild systolic congestive heart failure, ejection fraction 40-45% Well compensated, continue supportive care --Metabolic encephalopathy; resolved back to baseline --Ongoing tobacco use; smoking cessation counseling done, advised nicotine patch as needed --Depression; feels better today, evaluation by psych to follow [facility] upon discharge advised Trazodone 50 mg by mouth daily at bedtime when necessary --DVT prophylaxis; Lovenox Physical therapy occupational therapy as tolerated Disposition;discharge home today or tomorrow when oxygen is set up Plan of care reviewed with the patient and her nurse Answered all the questions Evaluation for home oxygen : Resting and ambulatory pulse ox Resting room air ABG Patient is medically stable for discharge, pending setting up home oxygen . History Interval history: In seen and evaluated medical records reviewed Feels better sitting comfortably in chair On 2 L of oxygen Denies chest pain or shortness of breath Vital signs reviewed Hospitalist Physical - Constitutional Vitals: Temp Pulse Resp BP Pulse Ox 97.9 F 89 18 102/86 97 11/26/17 13:11 11/26/17 13:11 11/26/17 13:11 11/26/17 13:11 11/26/17 13:11 General appearance: Present: no acute distress, well-nourished - EENT Eyes: Present: PERRL, EOM intact - Neck Neck: Present: supple, normal ROM - Respiratory Respiratory effort: normal Respiratory: bilateral: diminished, negative: rales, rhonchi, wheezing - Cardiovascular Rhythm: regular Heart Sounds: Present: S1 & S2 - Extremities Extremities: no ischemia, No edema - Abdominal General gastrointestinal: soft, non-tender, non-distended, normal bowel sounds - Integumentary Integumentary: Present: clear, warm - Psychiatric Psychiatric: appropriate mood/affect, cooperative - Neurologic Neurologic: CNII-XII intact, moves all extremities Results - Labs CBC & Chem 7: 11/18/17 06:18 11/25/17 06:59 Labs: Laboratory Last Values WBC 6.8 K/mm3 (4.5-11.0) 11/18/17 06:18 RBC 3.94 M/mm3 (3.65-5.03) 11/18/17 06:18 Hgb 12.3 gm/dl (10.1-14.3) 11/18/17 06:18 Hct 38.4 % (30.3-42.9) 11/18/17 06:18 MCV 98 fl (79-97) H 11/18/17 06:18 MCH 31 pg (28-32) 11/18/17 06:18 MCHC 32 % (30-34) 11/18/17 06:18 RDW 15.3 % (13.2-15.2) H 11/18/17 06:18 Plt Count 265 K/mm3 (140-440) 11/18/17 06:18 Lymph % (Auto) 5.6 % (13.4-35.0) L 11/18/17 06:18 [place] % (Auto) 8.6 % (0.0-7.3) H 11/18/17 06:18 Eos % (Auto) 0.0 % (0.0-4.3) 11/18/17 06:18 Baso % (Auto) 0.0 % (0.0-1.8) 11/18/17 06:18 Lymph # 0.4 K/mm3 (1.2-5.4) L 11/18/17 06:18 [place] # 0.6 K/mm3 (0.0-0.8) 11/18/17 06:18 Eos # 0.0 K/mm3 (0.0-0.4) 11/18/17 06:18 Baso # 0.0 K/mm3 (0.0-0.1) 11/18/17 06:18 Add Manual Diff Complete 11/17/17 12:10 Total Counted 100 11/17/17 12:10 Seg Neutrophils % 85.8 % (40.0-70.0) H 11/18/17 06:18 Seg Neuts % (Manual) 92.0 % (40.0-70.0) H 11/17/17 12:10 Band Neutrophils % 1.0 % 11/17/17 12:10 Lymphocytes % (Manual) 4.0 % (13.4-35.0) L 11/17/17 12:10 Reactive Lymphs % (Man) 0 % 11/17/17 12:10 Monocytes % (Manual) 3.0 % (0.0-7.3) 11/17/17 12:10 Eosinophils % (Manual) 0 % (0.0-4.3) 11/17/17 12:10 Basophils % (Manual) 0 % (0.0-1.8) 11/17/17 12:10 Metamyelocytes % 0 % 11/17/17 12:10 Myelocytes % 0 % 11/17/17 12:10 Promyelocytes % 0 % 11/17/17 12:10 Blast Cells % 0 % 11/17/17 12:10 Nucleated RBC % Not Reportable 11/17/17 12:10 Seg Neutrophils # 5.9 K/mm3 (1.8-7.7) 11/18/17 06:18 Seg Neutrophils # Man 5.8 K/mm3 (1.8-7.7) 11/17/17 12:10 Band Neutrophils # 0.1 K/mm3 11/17/17 12:10 Lymphocytes # (Manual) 0.3 K/mm3 (1.2-5.4) L 11/17/17 12:10 Abs React Lymphs (Man) 0.0 K/mm3 11/17/17 12:10 Monocytes # (Manual) 0.2 K/mm3 (0.0-0.8) 11/17/17 12:10 Eosinophils # (Manual) 0.0 K/mm3 (0.0-0.4) 11/17/17 12:10 Basophils # (Manual) 0.0 K/mm3 (0.0-0.1) 11/17/17 12:10 Metamyelocytes # 0.0 K/mm3 11/17/17 12:10 Myelocytes # 0.0 K/mm3 11/17/17 12:10 Promyelocytes # 0.0 K/mm3 11/17/17 12:10 Blast Cells # 0.0 K/mm3 11/17/17 12:10 WBC Morphology Not Reportable 11/17/17 12:10 Hypersegmented Neuts Not Reportable 11/17/17 12:10 Hyposegmented Neuts Not Reportable 11/17/17 12:10 Hypogranular Neuts Not Reportable 11/17/17 12:10 Smudge Cells Not Reportable 11/17/17 12:10 Toxic Granulation Not Reportable 11/17/17 12:10 Toxic Vacuolation Not Reportable 11/17/17 12:10 Dohle Bodies Not Reportable 11/17/17 12:10 Pelger-Huet Anomaly Not Reportable 11/17/17 12:10 Jackie Rods Not Reportable 11/17/17 12:10 Platelet Estimate Consistent w auto 11/17/17 12:10 Clumped Platelets Not Reportable 11/17/17 12:10 Plt Clumps, EDTA Not Reportable 11/17/17 12:10 Large Platelets Not Reportable 11/17/17 12:10 Giant Platelets Not Reportable 11/17/17 12:10 Platelet Satelliting Not Reportable 11/17/17 12:10 Plt Morphology Comment Not Reportable 11/17/17 12:10 RBC Morphology Not Reportable 11/17/17 12:10 Dimorphic RBCs Not Reportable 11/17/17 12:10 Polychromasia Few 11/17/17 12:10 Hypochromasia Not Reportable 11/17/17 12:10 Poikilocytosis Not Reportable 11/17/17 12:10 Anisocytosis Not Reportable 11/17/17 12:10 Microcytosis Not Reportable 11/17/17 12:10 Macrocytosis Not Reportable 11/17/17 12:10 Spherocytes Not Reportable 11/17/17 12:10 Pappenheimer Bodies Not Reportable 11/17/17 12:10 Sickle Cells Not Reportable 11/17/17 12:10 Target Cells Not Reportable 11/17/17 12:10 Tear Drop Cells Not Reportable 11/17/17 12:10 Ovalocytes Not Reportable 11/17/17 12:10 Helmet Cells Not Reportable 11/17/17 12:10 [place] Bodies Not Reportable 11/17/17 12:10 [place] Rings Not Reportable 11/17/17 12:10 [place] Cells Not Reportable 11/17/17 12:10 Bite Cells Not Reportable 11/17/17 12:10 Crenated Cell Not Reportable 11/17/17 12:10 Elliptocytes Not Reportable 11/17/17 12:10 Acanthocytes (Spur) Not Reportable 11/17/17 12:10 Rouleaux Not Reportable 11/17/17 12:10 Hemoglobin C Crystals Not Reportable 11/17/17 12:10 Schistocytes Not Reportable 11/17/17 12:10 Malaria parasites Not Reportable 11/17/17 12:10 Jose Bodies Not Reportable 11/17/17 12:10 Hem Pathologist Commnt No 11/17/17 12:10 D-Dimer 721.35 ng/mlDDU (0-234) H 11/17/17 02:33 POC ABG pH 7.350 (7.35-7.45) 11/18/17 10:24 POC ABG pCO2 78.2 (35-45) H 11/18/17 10:24 POC ABG pO2 118 (80-105) H 11/18/17 10:24 POC ABG HCO3 43.2 11/18/17 10:24 POC ABG Total CO2 46 11/18/17 10:24 POC ABG O2 Sat 98 11/18/17 10:24 POC ABG Base Excess 18 11/18/17 10:24 FiO2 50 % 11/18/17 10:24 Sodium 140 mmol/L (137-145) 11/25/17 06:59 Potassium 4.1 mmol/L (3.6-5.0) 11/25/17 06:59 Chloride 98.2 mmol/L (98-107) 11/25/17 06:59 Carbon Dioxide 39 mmol/L (22-30) H 11/25/17 06:59 Anion Gap 7 mmol/L 11/25/17 06:59 BUN 10 mg/dL (7-17) 11/25/17 06:59 Creatinine 0.5 mg/dL (0.7-1.2) L 11/25/17 06:59 Estimated GFR > 60 ml/min 11/25/17 06:59 BUN/Creatinine Ratio 20 % 11/25/17 06:59 Glucose 124 mg/dL (65-100) H 11/25/17 06:59 POC Glucose 85 (70-105) 11/21/17 21:05 Calcium 8.7 mg/dL (8.4-10.2) 11/25/17 06:59 Troponin T < 0.010 ng/mL (0.00-0.029) 11/17/17 15:42 NT-Pro-B Natriuret Pep 3039 pg/mL (0-900) H 11/17/17 02:33 Triglycerides 40 mg/dL (2-149) 11/17/17 12:10 Cholesterol 103 mg/dL (50-199) 11/17/17 12:10 LDL Cholesterol Direct 62 mg/dL (50-130) 11/17/17 12:10 HDL Cholesterol 33 mg/dL (40-59) L 11/17/17 12:10 Cholesterol/HDL Ratio 3.12 % 11/17/17 12:10 Urine Color Yellow (Yellow) 11/17/17 03:34 Urine Turbidity Clear (Clear) 11/17/17 03:34 Urine pH 6.0 (5.0-7.0) 11/17/17 03:34 Ur Specific [place] 1.018 (1.003-1.030) 11/17/17 03:34 Urine Protein 100 mg/dl mg/dL (Negative) 11/17/17 03:34 Urine Glucose (UA) Neg mg/dL (Negative) 11/17/17 03:34 Urine Ketones Neg mg/dL (Negative) 11/17/17 03:34 Urine Blood Neg (Negative) 11/17/17 03:34 Urine Nitrite Neg (Negative) 11/17/17 03:34 Urine Bilirubin Neg (Negative) 11/17/17 03:34 Urine Urobilinogen 4.0 mg/dL (<2.0) 11/17/17 03:34 Ur Leukocyte Esterase Sm (Negative) 11/17/17 03:34 Urine WBC (Auto) 5.0 /HPF (0.0-6.0) 11/17/17 03:34 Urine RBC (Auto) 5.0 /HPF (0.0-6.0) 11/17/17 03:34 U Epithel Cells (Auto) 5.0 /HPF (0-13.0) 11/17/17 03:34 Urine Mucus Few /HPF 11/17/17 03:34
--- NOTE | 2017-11-26 17:30 | Discharge Summary ---
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 11/21/17 10:53 psychiatry consult [Consult to Mental Health] [CONS] Routine Reason For Exam: depression Place consult to:: surgeon's assistant Notified:: judah Was contact made?: Yes Time called:: 11:11/21/17 11:47 Physical Therapy Evaluation and Treat [CONS] Routine Comment: Reason For Exam: gen debility/weakness Primary care physician: MAXX WILKINSON Hospitalization Condition: Stable Procedures: Home oxygen evaluation;at discharge on 11/26/17 Evaluation by respiratory therapist; your oxygen saturation on room air was 94-95%, Oxygen saturation after walking in the room was 92-93%, no distress noted. Evaluation by nurse; Oxygen saturation at rest on room air 93%, Oxygen saturation ambulatory on room air 90 - 91% No indication for home oxygen therapy Disposition: DC-01 TO HOME OR SELFCARE Time spent for discharge: 35 min Core Measure Documentation - Palliative Care Palliative Care/ Comfort Measures: Not Applicable - Core Measures Any of the following diagnoses?: none Exam - Constitutional Vitals: Temp Pulse Resp BP Pulse Ox 97.9 F 85 18 102/86 97 11/26/17 13:11 11/26/17 16:06 11/26/17 16:06 11/26/17 13:11 11/26/17 13:11 General appearance: Present: no acute distress, well-nourished - EENT Eyes: Present: PERRL, EOM intact - Neck Neck: Present: supple, normal ROM - Respiratory Respiratory effort: normal Respiratory: bilateral: diminished, negative: rales, rhonchi, wheezing - Cardiovascular Rhythm: regular Heart Sounds: Present: S1 & S2 - Extremities Extremities: no ischemia, No edema - Abdominal General gastrointestinal: Present: soft, non-tender, non-distended, normal bowel sounds - Integumentary Integumentary: Present: clear, warm - Musculoskeletal Musculoskeletal: strength equal bilaterally - Psychiatric Psychiatric: appropriate mood/affect, cooperative - Neurologic Neurologic: CNII-XII intact, moves all extremities Plan Activity: advance as tolerated Diet: regular Special Instructions: smoking cessation Additional Instructions: Evaluation by respiratory therapist;. your oxygen saturation on room air was 94-95%,. Oxygen saturation after walking in the room was 92-93%, no distress noted. Evaluation by nurse;. Oxygen saturation at rest on room air 93%,. Oxygen saturation ambulatory on room air 90 - 91%. No indication for home oxygen therapy. Advised smoking cessation. Advised to comply with medications, follow-up visits. Follow-up with pulmonary. Follow with cardiology per schedule Follow up with: MAXX WILKINSON MD [Primary Care Provider] - 3-5 Days CHANDAN AGUILAR MD [Staff Physician] - 7 Days ADRIANE CARMONA MD [Staff Physician] - 7 Days Prescriptions: ALBUTEROL Inhaler [ProAir HFA Inhaler] 8.5 gm IH QID #1 inha Budesonide [Pulmicort Respules] 0.5 mg IH Q12HRT 30 Days nebu Ipratropium/Albuterol Sulfate [Combivent Respimat Inhal [place]] 4 gm IH QID 30 Days mist.inhal Mometasone/Formoterol [Dulera 100 Mcg/5 Mcg Inhaler] 2 puff IH BID 30 Days hfa.aer.ad Nicotine [Habitrol] 14 mg TD DAILY #30 patch Prednisone [predniSONE 5 mg (6-Day Pack, 21 Tabs)] 5 mg PO .TAPER #1 tab.ds.pk Tiotropium [place] [Spiriva Respimat] 4 gm IH BID 30 Days mist.inhal traZODone [Desyrel] 50 mg PO QHS PRN #14 tablet PRN Reason: Sleep
== END 2017-11-26 18:55 | disposition home or self-care (01) | DRG 189 ==
LOC: ED 00:45 → 4A 09:34
PROVIDERS: ADMIT Internal Medicine; ATTEND Internal Medicine
PROC: 4A033R1 Measurement of Arterial Saturation, Peripheral, Percutaneous Approach (ICD-10-PCS; principal; 2017-11-17)
PROC: 5A09457 Assistance with Respiratory Ventilation, 24-96 Consecutive Hours, Continuous Positive Airway Pressure (ICD-10-PCS; 2017-11-17)
PROC: 3E0234Z Introduction of Serum, Toxoid and Vaccine into Muscle, Percutaneous Approach (ICD-10-PCS; 2017-11-18)
DX: J96.02 Acute respiratory failure with hypercapnia (principal); G93.41 Metabolic encephalopathy; J44.1 Chronic obstructive pulmonary disease with (acute) exacerbation; I50.20 Unspecified systolic (congestive) heart failure; Z23 Encounter for immunization; Z88.0 Allergy status to penicillin; Z98.51 Tubal ligation status; Z87.891 Personal history of nicotine dependence; Z82.49 Family history of ischemic heart disease and other diseases of the circulatory system; Z91.010 Allergy to peanuts; I27.81 Cor pulmonale (chronic); I27.20 Pulmonary hypertension, unspecified; F32.9 Major depressive disorder, single episode, unspecified; J96.01 Acute respiratory failure with hypoxia
CPT/HCPCS: 36415; 36600; 71046; 71275; 80048; 80061; 81001; 82803; 82962; 83880; 84484; 85007; 85025; 85379; 87205; 90686; 90732; 93005; 93010; 93306; 94640; 94760; 96374; 96375; 99291; J1650; J2270; J2930; J3486; Q9967